=== PATIENT | female | born 1975 | race Caucasian/White ===

== ENCOUNTER → 2017-12-31 10:40 | Outpatient (REF) | payer BC, SELFPAY ==
[2017-12-31 22:33] LABS: FREE T4 1.06 ng/dL (0.76-1.46); TSH 1.08 uIU/mL (0.358-3.74)
[2018-01-01 17:28] LABS: T3, Total 104 ng/dl (97-169)
== END ==
LOC: NCHCN 10:40
PROVIDERS: PCP Family Medicine; Visit Provider Physician Assistant Medical
DX: E03.9 Hypothyroidism, unspecified (principal)
CPT/HCPCS: 84439; 84443; 84480

== ENCOUNTER 2018-11-19 13:05 | Outpatient (CLI) | payer BC, SELFPAY ==
--- NOTE | 2018-11-19 11:44 | DI.RAD_ITS ---
SYMPTOM/DIAGNOSIS: LT SHOULDER PAIN M25.512 LEFT SHOULDER: 11/19/18 Five views were obtained. No bony or soft tissue abnormality seen.
== END 2018-11-19 13:25 ==
PROVIDERS: PCP Family Medicine; Visit Provider Physician Assistant Medical
DX: M25.512 Pain in left shoulder (principal)
CPT/HCPCS: 73030

== ENCOUNTER 2020-03-19 10:56 | Outpatient (REF) | payer BC, SELFPAY ==
[2020-03-19 19:29] LABS: TSH 1.13 uIU/mL (0.36-3.74)
== END 2020-03-19 11:16 ==
LOC: NCHCN 10:56
PROVIDERS: PCP Family Medicine; Visit Provider Physician Assistant Medical
DX: E03.9 Hypothyroidism, unspecified (principal)
CPT/HCPCS: 84443

== ENCOUNTER 2020-07-07 12:42 | Outpatient (RCR) | payer BC, SELFPAY ==
--- NOTE | 2020-07-07 15:30 | HOLTER_ITS ---
APPROVED REPORT Exam Type: HOLTER MONITOR APPLICATION Patient Location: O Conclusion This is a 24-hour Holter monitor ordered for indication of palpitations. The patient was in normal sinus rhythm for the majority of the recording with an average heart rate o f 72 bpm. There were no episodes of SVT or any episodes of VT. There were 2 single PACs. There were no episodes of atrial fibrillation, no pauses greater than 3 seconds and no evidence of hi gh degree heart block. There were 3 patient triggered events associated with 20 minutes of shortness of breath or nausea al . These episodes were correlated with sinus rhythm or sinus tachycardia.
== END 2020-07-11 23:59 | disposition home or self-care (01) ==
LOC: RT 12:42
PROVIDERS: PCP Family Medicine; Visit Provider Physician Assistant Medical
DX: R00.2 Palpitations (principal)
CPT/HCPCS: 93225; 93226

== ENCOUNTER 2020-07-07 21:43 | Outpatient (REF) | payer BC, SELFPAY ==
[2020-07-07 15:46] LABS: Abs Immature Grans 0.01 10^3/uL (0.0-0.06); Absolute Basophil Count 0.04 10^3/uL (0.0-0.2); Absolute Eosinophil Count 0.21 10^3/uL (0.0-0.7); Absolute Lymphocyte Count 1.08 10^3/uL (1.2-3.4); Absolute Monocyte Count 0.35 10^3/uL (0.1-0.8); Absolute Neutrophil Count 3.13 10^3/uL (1.2-6.7); Basophils % 0.8; Eosinophils % 4.4; HCT 39.5 % (36.0-46.0); HGB 12.9 g/dL (11.2-15.7); Immature Grans % 0.2; Lymphocytes % 22.4; MCH 29.4 pg (27.0-33.0); MCHC 32.7 % (32.0-36.0); MPV 10.9 fL (8.0-11.0); Monocytes % 7.3; Neutrophils % 64.9; Nucleated RBC 0 %; Platelet Count 258 10^3/uL (130-400); RBC 4.39 10^6/uL (3.93-5.22); RDW 12.7 % (11.7-14.6); RDW-SD 41.9 fL; WBC 4.82 10^3/uL (4.4-10.8)
[2020-07-07 15:59] LABS: Anion Gap 6.5 mmol/L (3-11); BUN 12 mg/dL (7-18); CO2 27.5 mmol/L (21.0-32.0); CREATININE 0.8 mg/dL (0.55-1.02); Calcium 9.1 mg/dL (8.5-10.1); Chloride 105 mmol/L (98-107); Glucose 78 mg/dL (74-106); Magnesium 2.1 mg/dL (1.8-2.4); Potassium 3.7 mmol/L (3.5-5.1); Sodium 139 mmol/L (136-145); TSH 1.83 uIU/mL (0.36-3.74)
== END 2020-07-07 21:44 | disposition home or self-care (01) ==
LOC: NCHCN 21:43
PROVIDERS: PCP Family Medicine; Visit Provider Physician Assistant Medical
DX: R00.2 Palpitations (principal)
CPT/HCPCS: 80048; 83735; 84443; 85025

== ENCOUNTER 2021-04-14 01:21 | Outpatient (CLI) | payer BC, SELFPAY ==
--- OUTSIDE RECORDS SUMMARY | 2021-04-14 01:23 | XMS_ITS ---
:1975 Author Care Team Providers Name Role Phone TuanRebeca daniel Primary Care Provider Unavailable Allergies Code Code System Name Reaction Severity Status Onset Cat Dander ? ? Active ? [id number] RxNorm Dog Dander ? ? Active ? Grass Pollen ? ? Active ? House Dust ? ? Active ? Mite [id number] RxNorm Mold ? ? Active ? Tree and ? ? Active ? Shrub Pollen Aurora Pollen ? ? Active ? Medications Name Status Start Date Stop Date ? ? Digestzymes by [employer] Active ? Not available capsule 2 capsules, three times / day, 10 minutes before meals Digestzymes by [employer] ? Not available capsule 1-2 capsule, three times / day for 1 m onth before every meal. If it is a higher fat meal, take 2 capsules GI MicrobX by [employer] Active ? Not available capsules 2 capsules twice daily, by mouth. Take away from food by at least 30 minutes, if tolerated. GI MicrobX by [employer] Active ? Not available capsules 2 capsules twice daily, by mouth. Take away from food by at least 30 minutes, if tolerated. GI Revive by [employer] Active ? Not available powder 1 scoop per day Please take away from other medications (at least 1 hour) GI Revive by [employer] Active ? Not available powder 1 scoop per day Please take away from other medications (at least 1 hour) levothyroxine 50 mcg capsule Active ? Not available Take 1 capsule every day by oral route. magnesium 400 mg (as magnesium oxide) capsule Active ? Not available can increase magnesium you are already taking to bowel tolerance for acute constipation at least an hour away from levothyroxine Vitamin C 500 mg tablet Active ? Not avai lable start at 500mg, increase to bowel tolerance for acute constipat ion at least an hour away from levothyroxine Notes: D-Mulsion 1000 D-Glucarate Buffered Chelate Tristian IgG 2000 [place] Oil Capsules Motility Activator Histamine Block Potassium 99mg Tristian Sporebiotic/Therbiotic Problems Name Status Onset Date Source ? Small Bowel Bacterial Overgrowth Syndrome Active 2020 ? Hypothyroidism Active 07/04/2020 ? Migraine Active 07/05/2020 ? 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 Infertility Care Unknown 07/05/2020 ? Trigeminal Neuralgia Active 10/19/2020 ? Constipation Active 10/19/2020 ? Procedures Date Name Performed by ? 05/14/2019 Shoulder Manipulation Information not av ailable 11/11/2017 Endoscopy Information not avai lable Notes: Schatski's Ring 08/12/2016 Colonoscopy Information not avai lable Notes: normal Results Lab Results None recorded. Past Encounters 11/22/2020 Constipation; Small Bowel Bacterial Over growth Syndrome; Burping Rebeca Mcclellan, [place]: [address], [address] [facility], [place] [address], Ph. 10/18/2020 Small Bowel Bacterial Overgrowth Syndrom e; Trigeminal Neuralgia; Migraine; Hypothyroidism; Constipation; Irritable Bowel Syndrome Rebeca Mcclellan, [place]: [address], [place] [address], [place] [address], Ph. 09/08/2020 Small Bowel Bacterial Overgrowth Syndrom e Rebeca Mcclellan, [place]: [address], [address] [facility], [place] [address], Ph. 07/05/2020 Small Bowel Bacterial Overgrowth Syndrom e Rebeca Mcclellan, [place]: [address] [facility] [address], [place] [address], [place] [address], Ph. Social History Tobacco Smoking Status Never Smoker Vaccine List None recorded. Plan of Care Patient Goals improve overall wellness Dear Samira, it was wonderful to spe ak with you yesterday. As discussed, continue with the current plan while also increas ing magnesium and vit c to help with temporary constipation. Re-start SCD for the next 4 weeks to see if some symptom improvement can be achieved. For acupunc ture for trigeminal neuralgia, Milton Lora . Please keep track of t and both digestive symptoms and facial symptoms. We will follow up in one month . Warmly, Rebeca Improve digestive health To be able to eat without re-emerge nce of symptoms Patient Instructions 1. increase digestive enzymes to 2 capsules 10 minutes before meals, 3x/day 2. Continue with previous recommendation s 3. try encapsulated peppermint oil Sami Hogan, I have decided to only include the psyllium and encapsualted peppermint oil in my recommendations for today. The GI revive already has DGL in it and if that is not helping the burping at this point, adding in more will most likely n ot be helpful. I do recommend trying the encapsulated peppermint oil. Start with 1 capsule per day with food and see how you feel. Do not lay down immediately aft er taking this. Please reach out with an y questions. WarmRebeca ivy Dear Samira, It was wonderful to speak with you last week. I am still doing some research into trigeminal neuralgia. I will be in touch with you this week with any thoughts on additional support for you. Please let me know if any questions or concerns com e up before our next visit. Rebeca Nguyễn, It was wonderful to meet you today. I siegel ve attached the information for the Low FODMAP diet. The [facility] Maximino is about $10 to download, but is well worth the investment. It is a great resource for both guiding you through the 3 phase s of the diet as well as a comprehensive data base to search for foods that are not listed on the handout and recipes. Depending on your preference, you can tr ack your symptoms on the maximino or the worksheet I have provided through your portal. Once you have had a chance to review the low FODMAP handouts and decide when it makes sense for you to start the diet, we will schedule to meet in 2 weeks and check in. You can either schedule online th rough the portal (when you are selecting your time, it is booked in 15 minute increments, so make sure to select 3 consecutive time slots) or you can call us and we can get you on the schedule. The stoo l test may or may not be back by then. I f it is, thats great and if not, we can at least check in on how the first phase is going and adjust our plan as needed based on how you are responding. Feel free to explore the [facility] [employer] website, this page in particular is very informative: [email or web address]-bbm-[email or web address]/ The website mostly talks about IBS sympt oms, but it has also been shown to be very helpful with SIBO and ultimately hopefully allow for more flexibility and empowerment in your diet. As you go through this material and the [facility] [employer] maximino, please reach out with any questions you may have! Rebeca Nguyễn Reminders Provider Appointments None recorded. ? ? Lab None recorded. ? ? Referral None recorded. ? ? Procedures None recorded. ? ? Surgeries None recorded. ? ? Imaging None recorded. ? ? Vitals None recorded.
--- OUTSIDE RECORDS SUMMARY | 2021-04-14 01:23 | XMS_ITS ---
:1975 External Reference #:[id number] Author Care Team Providers Name Role Phone Knights Primary Care Provider Unavailable Allergies None recorded. Medications Name Status Start Date Stop Date ? ? amoxicillin 500 mg tablet Completed ? 2018 azelastine 137 mcg (0.1 %) nasal spray Active ? Not available aerosol azithromycin 250 mg tablet Active ? Not a vailable cetirizine 10 mg tablet Completed ? 01/08/20 19 citalopram 10 mg tablet Completed ? 01/08/20 19 clobetasol 0.05 % topical ointment Active ? Not available codeine 10 mg-guaifenesin 100 mg/5 mL Completed ? 08/15/2018 oral liquid cyclobenzaprine 5 mg tablet Active ? Not available D-Mulsion 1000iu Active ? Not available Take 1, 2, 3, , 4, or 5 drop/day 4 drops/day GI Fortify Powder Completed ? 01/07/2019 slippery elm, marshmallow, flax, glutamine, psyllium, triphala, DGL up to 1 scoop 2xday hydrocortisone acetate 25 mg rectal Completed ? 12/02/2019 suppository letrozole 2.5 mg tablet Completed ? 01/08/20 19 levothyroxine 50 mcg tablet Active ? Not available lorazepam 0.5 mg tablet Completed ? 12/02/19 20 Magnesium Buffered Chelate Active ? Not a vailable magnesium glycinate chelate 1 cap 2xday Tristian Sporebiotics Active ? Not available bacillusindicus, subtilis, coagulans, licheniformis, clausii week 1 : 2capevery other day week 2 every day week three 2 caps /day methylprednisolone 4 mg tablets in a Completed ? 04/04/2019 dose pack montelukast 10 mg tablet Completed ? 020 omeprazole 20 mg capsule,delayed Completed ? 03/25/2018 release oxycodone 5 mg tablet Completed ? 12/02/2019 Vitamins Plus Low Iron 27 mg Active ? Not available iron-1 mg tablet promethazine 25 mg tablet Completed ? 2019 Similase Lipo Completed ? 10/10/2018 Digestive Enzyme 1 cap with meals or large snacks- for f at malabsorption/indigestion or pancreatic cancer Xifaxan 550 mg tablet Completed ? 12/02/2019 Problems Name Status Onset Date Source ? Migraine without Aura Active 01/31/2018 ? Pruritus of Skin Active 03/13/2018 ? Dietary Management Surveillance Active 03/15/2018 ? Flatulence, Eructation and Gas Pain Active 03/16/2018 ? Abdominal Pain Active 03/16/2018 ? Otalgia Active 05/27/2018 ? Chronic Constipation Active 05/27/2018 ? Small Bowel Bacterial Overgrowth Syndrome Active 2018 ? Hemorrhoids Active 06/17/2019 ? Procedures Date Name Performed by ? 11/11/2017 Other Information not avai lable Notes: upper endoscopy-no findings bu t pt find a schatzki ring on report 08/12/2016 Colonoscopy Information not avai lable 09/12/2015 Colposcopy Information not avai lable 06/14/2009 Colposcopy Information not avai lable Notes: high risk hpv Results Lab Results Date Name Specimen Result Interpretation Description Value Range Status Address ? 05/05/2019 ESR (Erythrocyte Normal Sedimentation 4 mm/HR 0 -30 Final Accu Sedimentation Rate mm/HR Ref erence Rate), Blood [facility] Lab: [address] [facility] [address], [place] 05/05/2019 C-reactive Normal CRP 4.4 0.0-10. Final A ccu Protein, Quantitative mg/L 0 mg/L Re ference Quantitative [facility] Lab: [address] [facility] [address], [place] 05/05/2019 TSH, Normal TSH 3Rd 2.374 0.340-4 Final Acc u Ultra-sensitive, Generation uIU/mL .410 Reference Serum uIU/mL Medical Lab: [address] [facility] [address], [place] 05/05/2019 T3, Free, Serum Normal Free T3 2.8 2.3-4.2 F inal Accu or Plasma pg/mL pg/mL Referen ce Medical Lab: [address] [facility] [address], [place] 05/05/2019 T4, Free, Serum Normal Free T4 1.03 0.61-1. F inal Accu NG/dL 12 Reference NG/dL Medical Lab: [address], [place] 05/05/2019 ELI (Antinuclear ABNORMAL ELI screen,EIA positi v negativ Final Accu Antibodies) e e Refer ence Screen, Ifa, [facility] Serum Lab: [address], [place] 05/05/2019 ELI (Antinuclear ABNORMAL ELI,titer 1:80 nega tiv Final Accu Antibodies) titer e titer Refe rence Screen, Ifa, [facility] Serum Lab: [address], [place] ? ? Normal ELI Pattern S ? Final Accu Reference Medical Lab: [address], [place] 05/05/2019 Rf (Rheumatoid Normal Rheumatoid 8.9 <14 Final Accu Factor), Serum Factor IU/mL IU/mL Re [facility] Medical Lab: [address], [place] 01/31/2018 Vitamin B12, ser ? Vitamin B12 728 211-946 Final [facility] Serum um pg/mL pg/mL Diagnostic s: [address] [place] [address], [facility] [place] 01/31/2018 CMP, Serum or ser High Glucose 102 <100 Naz l [facility] Plasma um mg/dL mg/dL Diagnostic s: [address] [place] [address], [facility] [place] ? ? ser ? Bun 13 7-25 Final [facility] um mg/dL mg/dL Diagnostic s: [address] [place], [place] ? ? ser ? Creatinine 0.92 0.70-1. Final Merc y um mg/dL 20 Diagnostic mg/dL s: [address] [place], [place] ? ? ser ? BUN / 14.1 6.0-21. Final [facility] um Creatinine ratio 0 ratio Diagn ostic Ratio s: [address] [place], [facility] [place] ? ? ser ? eGFR 87 >60 Final Christine cy um Scottish mL/min/ mL/min/ Diagno stic 1.73m2 1.73m2 s: [address] [place], [facility] [place] ? ? ser ? eGFR 75 >60 Final [facility] um Non- mL/min/ mL/min/ Awilda gnostic Scottish 1.73m2 1.73m2 s: [address] [place], [place] ? ? ser ? Sodium 142 135-145 Final [facility] um mmol/L mmol/L Diagnostic s: [address] [place] [address], [place] ? ? ser ? Potassium 3.8 3.5-5.1 Final [facility] um mmol/L mmol/L Diagnostic s: [address] [place], [place] ? ? ser ? Chloride 103 98-107 Final [facility] um mmol/L mmol/L Diagnostic s: [address] [place], [place] ? ? ser ? Co2 27 21-31 Final [facility] um mmol/L mmol/L Diagnostic s: [address] [place], [place] ? ? ser ? Anion Gap 12 5-15 Final [facility] um mEq/L mEq/L Diagnostic s: [address] [place], [place] ? ? ser ? Calcium 9.6 8.6-10. Final [facility] um mg/dL 3 mg/dL Diagnosti c s: [address], [place] ? ? ser ? Total Protein 7.3 6.4-8.9 Final M [facility] um g/dL g/dL Diagnostic s: [address] [place], [place] ? ? ser ? Albumin 4.5 3.5-5.7 Final [facility] um g/dL g/dL Diagnostic s: [address] [place], [place] ? ? ser ? Globulin 2.8 1.9-3.5 Final [facility] um g/dL g/dL Diagnostic s: [address] [place], [place] ? ? ser ? Albumin / 1.6 0.8-2.0 Final [facility] um Globulin Ratio ratio ratio Di agnostic s: [address] [place], [place] ? ? ser ? Tbili 0.4 0.1-1.5 Final [facility] um mg/dL mg/dL Diagnostic s: [address], [place] ? ? ser ? Alk. 64 IU/L 37-98 Final [facility] um Phosphatase IU/L Diagn ostic s: [address], [place] ? ? ser ? Ast 24 IU/L 13-39 Final [facility] um IU/L Diagnostic s: [address], [place] ? ? ser ? Alt 19 IU/L 7-52 Final [facility] um IU/L Diagnostic s: [address], [place] 01/31/2018 Ferritin, Serum ser ? Ferritin 44.5 13.0-15 Final [facility] or Plasma um NG/mL 0.0 Diagnos tic NG/mL s: [address], [place] 01/31/2018 Folate, Serum ser ? Folate >20.0 4.6-34. Naz l [facility] um NG/mL 8 NG/mL Diagnosti c s: [address], [place] 01/31/2018 Gamma-glutamyl ser ? Ggt 9 IU/L 9-64 Final [facility] Transferase um IU/L Diagn ostic (Ggt), Serum s: [address], [place] 01/31/2018 Magnesium, Serum ser ? Magnesium 2.2 1.9-2. 7 Final [facility] or Plasma um mg/dL mg/dL Diagnos tic s: [address], [place] 01/31/2018 IgE, ser Low Total IgE 18.3 20.4-87 Final [facility] Quantitative, um IU/mL .0 Awilda gnostic Serum IU/mL s: [address], [place] 01/31/2018 Vitamin D, ser ? Vitamin D 33.7 30.0-10 Naz l [facility] 25-Hydroxy, um 25-Oh NG/mL 0.0 Diagn ostic Total, Serum NG/mL s: [address], [place] 01/31/2018 Iron + Total ser ? Iron 75 50-212 Final [facility] Iron-binding um ug/dL ug/dL Diag nostic Capacity (TIBC), s: [address], [place] ? ? ser ? Transferrin 250.8 203.0-3 Final [facility] cy um mg/dL 62.0 Diagnostic mg/dL s: [address], [place] ? ? ser ? Tibc 358.6 250.0-4 Final [facility] um ug/dL 50.0 Diagnostic ug/dL s: [address], [place] ? ? ser ? Uibc 283.6 155.0-3 Final [facility] um ug/dL 55.0 Diagnostic ug/dL s: [address], [place] ? ? ser ? %Saturation 20.9 % 14.0-50 Final [facility] cy um .0 % Diagnostic s: [address], [facility] [place] 01/31/2018 TSH, Serum or ser ? Tsh 1.51 0.40-4. Final [facility] Plasma um uIU/mL 50 Diagnostic uIU/mL s: [address], [facility] [place] 01/31/2018 Thyroglobulin ser ? Tgab 13 0-115 Final [facility] Ab, Serum um IU/mL IU/mL Diagnos tic s: [address], [facility] [place] 01/31/2018 Thyroid ser ? Tpoab 14 0-34 Final [facility] Peroxidase (Tpo) um IU/mL IU/mL Diagnostic Ab, Serum s: [address], [facility] [place] 01/31/2018 T4, Free, Serum ser ? Free T4 1.35 0.93-1. F inal [facility] um NG/dL 70 Diagnostic NG/dL s: [address], [facility] [place] 01/31/2018 T3, Free, Serum ser ? Free T3 2.70 2.00-4. F inal [facility] or Plasma um pg/mL 90 Diagnos tic pg/mL s: [address], [place] 01/31/2018 Sherice Albicans Ser High Sherice 2.52 ev <=0.88 Final [facility] IgA + IgG + IgM um Antibody IgA ev Diagnostic Ab, Serum s: [address], [facility] [place] ? ? Ser High Sherice 1.64 ev <=0.88 Final [facility] um Antibody IgG ev Diag nostic s: [address], [facility] [place] ? ? Ser High Sherice 1.80 ev <=0.88 Final [facility] um Antibody IgM ev Diag nostic s: [address], [facility] [place] 01/31/2018 Immunoglobulins Ser ? Immunoglobulin 1390 76 8-163 Final [facility] Iga+igg+igm, um g mg/dL 2 mg/dL Awilda gnostic Quantitative, s: [address]39 Serum [address], [facility] [place] ? ? Ser ? Immunoglobulin 272 68-408 Final [facility] um a mg/dL mg/dL Diagnostic s: [address], [place] ? ? Ser ? Immunoglobulin 237 35-263 Final [facility] um M mg/dL mg/dL Diagnostic s: [address], [place] 01/31/2018 Histamine, Serum Sarah ? Histamine, <8 0-8 Final [facility] or Plasma sma Plasma nmol/L nmol/L Diagnos tic s: [address], [place] 01/31/2018 Magnesium, RBC RBC ? Magnesium, 1.6 1.5-3.1 Final [facility] s RBCs mmol/L mmol/L Diagnostic s: [address], [place] 01/31/2018 CBC W/ Auto Diff who ? White Blood 6.0 4.0- 11. Final [facility] leb Cell Count 10^3/uL 0 Diagn ostic loo 10^3/uL s: [address]39 [address], [place] ? ? who ? Red Blood Cell 4.40 4.00-5. [facility] leb Count 10^6/uL 40 Diagnosti c loo 10^6/uL s: 2039 d [address], [place] ? ? who ? Hemoglobin 12.7 12.5-16 Final [facility] leb g/dL .0 g/dL Diagnosti c loo s: 2039 d [address], [place] ? ? who ? Hematocrit 38.6 % 37.0-47 Final [facility] leb .0 % Diagnostic loo s: [address]39 d [address]red[address], [place] ? ? who ? Mean Cell 87.7 fL 78.0-10 Final [facility] leb Volume 0.0 fL Diagnostic loo s: [address]39 [address], [place] ? ? who ? Mean Cell 28.9 pg 25.0-35 Final [facility] leb Hemoglobin .0 pg Diagno stic loo s: [address]39 d [address], [place] ? ? who ? Mean Cell 32.9 30.0-37 Final [facility] leb Hemoglobin g/dL .0 g/dL Diagn ostic loo Concentration s: 2039 d [address], [place] ? ? who ? Red Cell 13.7 % 11.5-14 Final [facility] leb Distribution .5 % Diag nostic loo Width s: [address], [place] ? ? who ? Platelet Count 281 150-450 Final [facility] leb 10^3/uL 10^3/uL Diagnost ic loo s: [address], [place] ? ? who ? Mean Platelet 8.9 fL 6.8-10. Final [facility] leb Volume 4 fL Diagnostic loo s: [address], [place] ? ? who ? Neutrophil 69.2 % 40.0-70 Final [facility] leb Percent .0 % Diagnosti c loo s: [address], [place] ? ? who ? Absolute 4.2 1.5-6.6 Final [facility] leb Neutrophil 10^3/uL 10^3/uL Diag nostic loo s: [address]39 [address], [place] ? ? who ? Lymphocyte 19.1 % 18.0-48 Final [facility] leb Percent .0 % Diagnosti c loo s: [address], [place] ? ? who ? Absolute 1.2 0.8-4.8 Final [facility] leb Lymphocyte 10^3/uL 10^3/uL Diag nostic loo s: [address]39 [address], [place] ? ? who ? Monocyte 6.4 % 2.0-11. Final [facility] leb Percent 0 % Diagnosti c loo s: [address]39 [address], [place] ? ? who ? Absolute 0.40 0.00-0. Final [facility] leb Monocyte 10^3/uL 90 Diagnos tic loo 10^3/uL s: 2039 [address], [place] ? ? who ? Eosinophil 4.5 % 0.0-5.0 Final [facility] leb Percent % Diagnosti c loo s: [address]39 [address], [place] ? ? who ? Absolute 0.3 0.0-0.5 Final [facility] leb Eosinophil 10^3/uL 10^3/uL Diag nostic loo s: 2039 d [address], [place] ? ? who ? Basophil 0.8 % 0.0-2.0 Final [facility] leb Percent % Diagnosti c loo s: 2039 d Lal[address]redia, [place] ? ? who ? Basophil 0.00 0.00-0. Final [facility] leb Absolute 10^3/uL 30 Diagnos tic loo 10^3/uL s: 2039 d Lal[address] Heredia, [place] Past Encounters 12/18/2019 Flatulence, Eructation and Gas Pain; tary Management Surveillance; Small Bowel Bacterial Overgrowth Syndrome Winifred Coulter, ND: [address] [place] [address], Ph. [phone] 12/02/2019 Cramp in Foot; Small Bowel Bacterial Ove rgrowth Syndrome; Otalgia; Flatulence, Eructation and Gas Pain; Dietary Management Surveillance Winifred Coulter, ND: [address] [place] [address], Ph. [phone] Social History Tobacco Smoking Status Never Smoker Vaccine List None recorded. Plan of Care Patient Instructions 1. try taking CAndidbactin 1 hour b efore meals with a small amount of food, pear sauce, apple sace cooked carrots etc- 2. Rehydration Formula 8oz water 8oz juice 1/2 tsp baking soda pinch of table salt 1/2 tsp honey or maple syrup squeeze lemon juice if desired can use grape juice as well for sugar 1. PT for shoulder and anti-inflamm atories 2. Stop Candibactin AR for 3/4 days if g as and repeating taste goes away try adding back only 1 pill a day give it a few days and see if you repeat it on one pill/day only- 3. continue to log diet and sx and BMs c all if you need help before next appt. electrolyte recipe: Rehydration Formula 8oz water 8oz juice 1/2 tsp baking soda pinch of table salt 1/2 tsp honey or maple syrup squeeze lemon juice if desired Reminders Provider Appointments None recorded. ? ? Lab None recorded. ? ? Referral None recorded. ? ? Procedures None recorded. ? ? Surgeries None recorded. ? ? Imaging None recorded. ? ? Vitals 12/18/2019 09:00AM ESTABLISHED PATIENT 43 Height Weight BMI 5 ft 3 in 122 lbs 16 oz 21.8 kg/m2 12/02/2019 10:45AM ESTABLISHED PATIENT 45 Height Weight BMI Blood Pressure 5 ft 3 in 126 lbs 22.3 kg/m2 102/62 mm[Hg] 06/02/2019 03:00PM ESTABLISHED PATIENT 45 Height Weight BMI Blood Pressure 5 ft 3 in 121 lbs 21.4 kg/m2 110/60 mm[Hg] 01/07/2019 01:45PM ESTABLISHED PATIENT 45 Height Weight BMI 5 ft 3 in 119 lbs 16 oz 21.3 kg/m2 10/31/2018 01:00PM ESTABLISHED PATIENT 45 Height Weight BMI 5 ft 3 in 119 lbs 16 oz 21.3 kg/m2 10/10/2018 03:30PM ESTABLISHED PATIENT 45 Height Weight BMI 5 ft 3 in 121 lbs 21.4 kg/m2 06/27/2018 03:00PM ESTABLISHED PATIENT 30 Height Weight BMI 5 ft 3 in 130 lbs 23 kg/m2 05/23/2018 03:00PM ESTABLISHED PATIENT 30 Height Weight BMI 5 ft 3 in 133 lbs 12.8 oz 23.7 kg/m2 03/29/2018 09:30AM ESTABLISHED PATIENT 58 Height Weight BMI 5 ft 3 in 139 lbs 24.6 kg/m2 03/25/2018 03:30PM ESTABLISHED PATIENT 58 Height Weight BMI Blood Pressure 5 ft 3 in 142 lbs 3.2 oz 25.2 kg/m2 100/68 mm[Hg] 03/13/2018 04:15PM ESTABLISHED PATIENT 45 Height Weight BMI 5 ft 3 in 143 lbs 25.3 kg/m2 01/31/2018 01:30PM NEW PATIENT 90 Height Weight BMI Blood Pressure 5 ft 3 in 148 lbs 3.2 oz 26.3 kg/m2 110/70 mm[Hg]
--- NOTE | 2021-04-14 16:20 | DI.MAMMO_ITS ---
Exam(s) MAMMO SCREENING EXAM: MAMMO SCREENING CLINICAL HISTORY: BREAST CANCER SCREENING MAMMO Z12.31. TECHNIQUE: Bilateral full field digital CC and MLO mammographic images were obtained with 3D tomosyn thesis and utilizing computer aided detection (CAD). COMPARISON: Prior mammograms dating back to 2013, the most recent being July 2017. FINDINGS: Fibroglandular tissue pattern is again noted be moderately dense, this somewhat decreasing the sensit ivity mammogram for finding hidden underlying lesions. There has been no significant change in appearance and distribution of fibroglandular tissue. There are no new spiculated masses nor malignant-appearing microcalcification groups. Small benign-a ppearing microcalcification group in the left breast noted approximately 4 cm in from the nipple. Be nign macrocalcification medial of center in the right breast consistent with benign peripherally calc ified oil cyst is now evident. There is no significant architectural distortion nor skin thickening-retraction. IMPRESSION: Dense bilateral fibroglandular tissue. Benign findings. No obvious radiographic evidence of maligna ncy. BI-RADS Category 2 - Benign Findings Breast Density - Category C - Heterogeneously dense Breast density Category C or D implies that the patient has dense breast tissue. Dense breast tissue can make it harder to find cancer on a mammogram. Dense breast tissue is also associated with an incr eased risk of breast cancer. This information about the result of the mammogram report was provided to the patient to raise their awareness. Use this report when you speak with the patient about their risks for breast cancer, which includes their family history. At that time, you may recommend additional screening tests (Ultrasoun d or MRI) as these tests may add significant information. A negative radiographic report should not delay biopsy if a dominant or clinically suspicious mass is present. Up to ten percent of cancers are not identified on mammography. A negative report may reinforce clinical impression. Adenosis and dense breasts may obscure an underlying neoplasm. False positive reports average 6 to 10%. Patient will receive a letter notifying them of these results.
== END 2021-04-14 01:41 ==
PROVIDERS: PCP Family Medicine; Visit Provider Nurse Practitioner Women's Health
DX: Z12.31 Encounter for screening mammogram for malignant neoplasm of breast (principal); R92.8 Other abnormal and inconclusive findings on diagnostic imaging of breast; R92.0 Mammographic microcalcification found on diagnostic imaging of breast
CPT/HCPCS: 77063; 77067

== ENCOUNTER 2021-04-20 18:51 | Outpatient (REF) | payer BC, SELFPAY ==
[2021-04-20 20:30] LABS: Abs Immature Grans 0.01 10^3/uL (0.0-0.06); Absolute Basophil Count 0.05 10^3/uL (0.0-0.2); Absolute Eosinophil Count 0.27 10^3/uL (0.0-0.7); Absolute Lymphocyte Count 1.33 10^3/uL (1.2-3.4); Absolute Monocyte Count 0.55 10^3/uL (0.1-0.8); Absolute Neutrophil Count 3.64 10^3/uL (1.2-6.7); Basophils % 0.9; Eosinophils % 4.6; HCT 36.3 % (36.0-46.0); HGB 11.8 g/dL (11.2-15.7); Immature Grans % 0.2; Lymphocytes % 22.7; MCH 28.9 pg (27.0-33.0); MCHC 32.5 % (32.0-36.0); MPV 10.6 fL (8.0-11.0); Monocytes % 9.4; Neutrophils % 62.2; Nucleated RBC 0 %; Platelet Count 244 10^3/uL (130-400); RBC 4.08 10^6/uL (3.93-5.22); RDW 13.2 % (11.7-14.6); WBC 5.85 10^3/uL (4.4-10.8)
[2021-04-20 20:43] LABS: ALT 31 U/L (14-59); AST 38 U/L (15-37); Albumin 3.9 g/dL (3.4-5.0); Alkaline Phosphatase 69 U/L (46-116); BUN 17 mg/dL (7-18); Bilirubin, Total 0.3 mg/dL (0.2-1.0); CO2 23.8 mmol/L (21.0-32.0); CREATININE 0.6 mg/dL (0.55-1.02); Calculated LDL 119 mg/dL (<100); Chloride 95 mmol/L (98-107); Cholesterol 191 mg/dL (<200); Glucose 94 mg/dL (74-106); HDL Cholesterol 62 mg/dL (40-60); TSH 1.85 uIU/mL (0.36-3.74); Total Protein 7.4 g/dL (6.4-8.2); Triglyceride 52 mg/dL (<150)
[2021-04-20 20:48] LABS: Anion Gap 17.2 mmol/L (3-11); Potassium 4.6 mmol/L (3.5-5.1); Sodium 136 mmol/L (136-145)
== END 2021-04-20 18:52 | disposition home or self-care (01) ==
LOC: NCHCN 18:51
PROVIDERS: PCP Family Medicine; Visit Provider Physician Assistant Medical
DX: Z00.8 Encounter for other general examination (principal)
CPT/HCPCS: 80053; 80061; 84443; 85025

== ENCOUNTER 2022-07-17 02:14 | Outpatient (CLI) | payer BC, SELFPAY ==
--- NOTE | 2022-07-17 14:00 | DI.MAMMO_ITS ---
Exam(s) MAMMO SCREENING EXAM: MAMMO SCREENING CLINICAL HISTORY: SCREENING, Z12.31 TECHNIQUE: Mammograms were interpreted according to the usual protocol including computer analysis w [employer] CAD system, tomosynthesis and C-view imaging. COMPARISON: 2013 through 2020 FINDINGS: The breasts are composed of heterogeneously dense fibroglandular densities, Breast Density category C . There is a question of a roughly 15 millimeter area of nodularity versus overlying fibroglandular tis yon seen on the CC view in the posterior tissue in the midline. Spot compression views and ultrasoun d are requested for further evaluation. No suspicious masses or suspicious microcalcifications are s een in the left breast. No skin thickening or abnormal axillary lymph nodes are seen. There has been no significant change in the appearance of the left breast from prior exams. IMPRESSION: BI-RADS Category 0 - Assessment Incomplete: Need additional imaging evaluation of the right breast. . Breast Density Category C, heterogeneously Dense. The mammogram demonstrates the patient's breast tissue is dense. Dense breast tissue is very common a nd is not abnormal but dense breast tissue can make it harder to find cancer on a mammogram. Also, de nse breast tissue may increase breast cancer risk. This information about the result of the mammogram report was provided to the patient to raise their awareness. Use this report when you speak with the patient about their risks for breast cancer, which includes their family history. At that time, you may recommend additional screening tests (Ultrasound or MRI) as they might be useful based on their r isk. A negative radiographic report should not delay biopsy if a dominant or clinically suspicious mass is present. Up to ten percent of cancers are not identified on mammography. A negative report may reinforce clinical impression. Adenosis and dense breasts may obscure an underlying neoplasm. False positive reports average 6 to 10%.
== END 2022-07-17 02:34 ==
LOC: DI 02:14
PROVIDERS: PCP Family Medicine; Visit Provider Nurse Practitioner Women's Health
DX: Z12.31 Encounter for screening mammogram for malignant neoplasm of breast (principal); R92.8 Other abnormal and inconclusive findings on diagnostic imaging of breast
CPT/HCPCS: 77063; 77067

== ENCOUNTER 2022-07-21 00:26 | Outpatient (CLI) | payer BC, SELFPAY ==
--- NOTE | 2022-07-21 10:15 | DI.MAMMO_ITS ---
Exam(s) MG MAMMO SCREEN CALL BACK UNI US BREAST RT COMPLETE EXAM: MG MAMMO SCREEN CALL BACK UNI and U/S breast RT complete CLINICAL HISTORY: 15 MM AREA OF NODULARITY/FIBROGLANDULAR TISSUE, POSTERIOR RT BREAST MIDLINE. TECHNIQUE: Craniocaudal and mediolateral oblique Full Field Digital Mammography views of the right b reast with Computer Aided Diagnosis followed by Tomosynthesis and right breast ultrasound. COMPARISON: Comparison is made with prior examinations. FINDINGS: Mammography/Tomosynthesis: Masses/Architectural Distortion: None seen. Microcalcifictions: No suspicious pleomorphic-type are seen. Skin Thickening/Nipple Retraction: None. Complete right breast US: Echotexture: Normal appearance of the glandular tissue. Shadowing: No suspicious foci. Cyst: None. Solid lesions: None seen. Ductal dilation: None. IMPRESSION: 1. No evidence of malignancy is noted. 2. A six-month follow-up right mammogram is recommended for re-evaluation. 3. The findings were discussed with the patient on the date of the examination. BI-RADS Category 3 - 6 month - Probably Benign Finding: Recommend follow-up imaging in 6 months Breast Density - Category C - Heterogeneously dense Breast density Category C or D implies that the patient has dense breast tissue. Dense breast tissue can make it harder to find cancer on a mammogram. Dense breast tissue is also associated with an incr eased risk of breast cancer. This information about the result of the mammogram report was provided to the patient to raise their awareness. Use this report when you speak with the patient about their risks for breast cancer, which includes their family history. At that time, you may recommend additional screening tests (Ultrasoun d or MRI) as these tests may add significant information. A negative radiographic report should not delay biopsy if a dominant or clinically suspicious mass is present. Up to ten percent of cancers are not identified on mammography. A negative report may reinforce clinical impression. Adenosis and dense breasts may obscure an underlying neoplasm. False positive reports average 6 to 10%. Patient will receive a letter notifying them of these results.
== END 2022-07-21 00:46 ==
LOC: DI 00:28
PROVIDERS: PCP Family Medicine; Visit Provider Nurse Practitioner Women's Health
DX: Z12.31 Encounter for screening mammogram for malignant neoplasm of breast (principal); R92.8 Other abnormal and inconclusive findings on diagnostic imaging of breast
CPT/HCPCS: 76642; 77063; 77067

== ENCOUNTER 2022-07-31 03:52 | Outpatient (CLI) | payer BC, SELFPAY ==
[2022-07-31 16:43] LABS: Abs Immature Grans 0.01 10^3/uL (0.0-0.06); Absolute Basophil Count 0.05 10^3/uL (0.0-0.2); Absolute Eosinophil Count 0.33 10^3/uL (0.0-0.7); Absolute Lymphocyte Count 1.52 10^3/uL (1.2-3.4); Absolute Monocyte Count 0.42 10^3/uL (0.1-0.8); Absolute Neutrophil Count 2.51 10^3/uL (1.2-6.7); Eosinophils % 6.8; HCT 36.4 % (36.0-46.0); Immature Grans % 0.2; Lymphocytes % 31.4; MCH 29.3 pg (27.0-33.0); MCV 89 fL (80-95); MPV 9.8 fL (8.0-11.0); Monocytes % 8.7; Neutrophils % 51.9; Platelet Count 242 10^3/uL (130-400); RDW 13.1 % (11.7-14.6); RDW-SD 42.5 fL; WBC 4.84 10^3/uL (4.4-10.8)
[2022-07-31 17:32] LABS: Iron 45 ug/dL (50-170); Total Iron Binding Capacity 280 ug/dL (250-450); Transferrin Sat 16 % (15-50)
[2022-07-31 17:46] LABS: Calculated LDL 109 mg/dL (<100); Cholesterol 170 mg/dL (<200); Ferritin 52 ng/mL (8-252); HDL Cholesterol 53 mg/dL (40-60); Magnesium 2.1 mg/dL (1.8-2.4); Triglyceride 41 mg/dL (<150)
[2022-07-31 18:04] LABS: PHOSPHORUS 3.9 mg/dL (2.6-4.7)
[2022-08-04 09:08] LABS: Apolipoprotein A1, S 124 mg/dL (>=140); Apolipoprotein B, S 89 mg/dL (See Comment); Apolipoprotein B/A 1 ratio 0.7 (See Comment)
== END 2022-07-31 03:53 | disposition home or self-care (01) ==
PROVIDERS: PCP Family Medicine; Visit Provider Naturopath
DX: D50.9 Iron deficiency anemia, unspecified (principal); E78.5 Hyperlipidemia, unspecified; E83.42 Hypomagnesemia
CPT/HCPCS: 36415; 80061; 82172; 82728; 83540; 83550; 83735; 84100; 85025

== ENCOUNTER 2022-08-02 02:01 | Outpatient (CLI) | payer BC, SELFPAY ==
--- NOTE | 2022-08-02 07:30 | DI.MRI_ITS ---
Exam(s) MR ANGIO BRAIN WO CLINICAL HISTORY: bilat pulsatile tinnitus,H93.A3. TECHNIQUE: Multiplanar multisequence MRA of the brain was performed. COMPARISON: Comparison MRI brain is 03/30/2010. FINDINGS: Carotid Arteries: No aneurysm, occlusion or significant stenosis. Anterior Cerebral Arteries: Right: No aneurysm, occlusion or significant stenosis. Left: No aneurysm, occlusion or significant stenosis. Middle Cerebral Arteries: Right: No aneurysm, occlusion or significant stenosis. Left: No aneurysm, occlusion or significant stenosis. Posterior Cerebral Arteries: Right: No aneurysm, occlusion or significant stenosis. There is a persistent right PCOM which is a n ormal variant. Left: No aneurysm, occlusion or significant stenosis. Vertebral Arteries: Right: No aneurysm, occlusion or significant stenosis. Left: No aneurysm, occlusion or significant stenosis. Basilar Artery: No aneurysm, occlusion or significant stenosis. IMPRESSION: Normal MRA examination of the [place]. DATA REPOSITORY:
--- NOTE | 2022-08-02 07:30 | DI.MRI_ITS ---
Exam(s) MR VENOUS BRAIN WO/W EXAM: MR VENOUS BRAIN WO/W CLINICAL HISTORY: pulsitile tinnitus,bilat,H93.A3. TECHNIQUE: Multiplanar multisequence MRV of the brain was performed. IV Contrast: 12 mL of Dotarem contrast administered. COMPARISON: MR MRI - BRAIN WO CONTRAST from 03/30/2010 FINDINGS: Superior sagittal sinus: Patent.Straight sinus: Patent.Sigmoid sinus: Patent.Jugular veins: Patent. IMPRESSION: Normal MR Venogram. DATA REPOSITORY:
--- NOTE | 2022-08-02 07:30 | DI.MRI_ITS ---
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 TECHNIQUE: Multiplanar multisequence MRA of the Neck was performed. COMPARISON: MR MRI - BRAIN WO CONTRAST from 03/30/2010 FINDINGS: Common Carotid: Right: No dissection, occlusion or significant stenosis. Left: No dissection, occlusion or significant stenosis. External Carotid: Right: No evidence of occlusion or significant stenosis. Left: No evidence of occlusion or significant stenosis. Internal Carotid: Right: No dissection, occlusion or significant stenosis. Left: No dissection, occlusion or significant stenosis. Vertebral Artery: Right: No dissection, occlusion or significant stenosis. Left: No dissection, occlusion or significant stenosis. The visualized paraspinal soft tissues are unremarkable. IMPRESSION: No evidence of dissection, occlusion or significant stenosis. DATA REPOSITORY:
[2022-08-02] MEDS: Normal Saline - Diluent 50 ML VIAL 30 ML IJ (15:10)
== END 2022-08-02 02:21 ==
LOC: DI 02:01
PROVIDERS: PCP Family Medicine; Visit Provider Psychiatry & Neurology Neurology
DX: H93.A3 Pulsatile tinnitus, bilateral (principal)
CPT/HCPCS: 70544; 70546; 70547

== ENCOUNTER 2022-12-12 13:21 | Outpatient (REF) | payer BC, SELFPAY ==
[2022-12-12 16:31] LABS: TSH (W/Ref FT4) 1.42 uIU/mL (0.36-3.74)
== END 2022-12-12 13:22 | disposition home or self-care (01) ==
LOC: NCHCN 13:21
PROVIDERS: PCP Family Medicine; Visit Provider Physician Assistant Medical
DX: E03.9 Hypothyroidism, unspecified (principal)
CPT/HCPCS: 84443

== ENCOUNTER → 2023-02-01 03:10 | Outpatient (CLI) | payer BC, SELFPAY ==
--- NOTE | 2023-02-01 15:03 | DI.MAMMO_ITS ---
Exam(s) MAMMO DIAGNOSTIC UNI EXAM: MAMMO DIAGNOSTIC UNI CLINICAL HISTORY: R92.8 ABNL MAMMO 6 MO FU. TECHNIQUE: Craniocaudal and mediolateral oblique Full Field Digital Mammography views of the right b reast with Computer Aided Diagnosis followed by Tomosynthesis. COMPARISON: Comparison is made with prior examinations. FINDINGS: Mammography/Tomosynthesis: Masses/Architectural Distortion: None seen. Microcalcifictions: No suspicious pleomorphic-type are seen. Skin Thickening/Nipple Retraction: None. IMPRESSION: 1. No evidence of malignancy is noted. 2. Unless there is more urgent need, follow-up screening mammography is recommended, as per [place] [employer] guidelines. 3. The findings were discussed with the patient on the date of the examination. BI-RADS Category 1 - Negative Breast Density - Category C - Heterogeneously dense Breast density Category C or D implies that the patient has dense breast tissue. Dense breast tissue can make it harder to find cancer on a mammogram. Dense breast tissue is also associated with an incr eased risk of breast cancer. This information about the result of the mammogram report was provided to the patient to raise their awareness. Use this report when you speak with the patient about their risks for breast cancer, which includes their family history. At that time, you may recommend additional screening tests (Ultrasoun d or MRI) as these tests may add significant information. A negative radiographic report should not delay biopsy if a dominant or clinically suspicious mass is present. Up to ten percent of cancers are not identified on mammography. A negative report may reinforce clinical impression. Adenosis and dense breasts may obscure an underlying neoplasm. False positive reports average 6 to 10%. Patient will receive a letter notifying them of these results.
== END ==
PROVIDERS: PCP Family Medicine; Visit Provider Nurse Practitioner Women's Health
DX: Z12.31 Encounter for screening mammogram for malignant neoplasm of breast (principal); R92.8 Other abnormal and inconclusive findings on diagnostic imaging of breast
CPT/HCPCS: 77061; 77065; G0279

== ENCOUNTER → 2023-09-07 00:21 | Outpatient (CLI) | payer BC, SELFPAY ==
--- NOTE | 2023-09-07 | DI.MAMMO_ITS ---
Exam(s) MAMMO SCREENING EXAM: MAMMO SCREENING CLINICAL HISTORY: SCREENING MAMMO FOR BTREAST CANCER Z12.31 TECHNIQUE: Bilateral full field digital CC and MLO mammographic images were obtained with 3D tomosyn thesis and utilizing computer aided detection (CAD). COMPARISON: Available for comparison. FINDINGS: Masses/Architectural Distortion: None seen. Microcalcifications: No suspicious pleomorphic-type are seen. Skin Thickening/Nipple Retraction: None. IMPRESSION: 1. No significant interval change with no specific features of malignancy noted. 2. Unless there is more urgent need, screening mammography is recommended, as per [place] [employer] guidelines. BI-RADS Category 1 - Negative Breast Density - Category C - Heterogeneously dense Breast density category C or D implies that the patient has dense breast tissue. Dense breast tissue is very common and is not abnormal but dense breast tissue can make it harder to find cancer on a ma mmogram. Also, dense breast tissue may increase their breast cancer risk. This information about the result of the mammogram report was provided to the patient to raise their awareness. Use this report when you speak with the patient about their risks for breast cancer, which includes their family hist ory. At that time, you may recommend for more screening tests (Ultrasound or MRI) as they might be us eful based on their risk. A negative radiographic report should not delay biopsy if a dominant or clinically suspicious mass is present. Up to ten percent of cancers are not identified on mammography. A negative report may reinforce clinical impression. Adenosis and dense breasts may obscure an underlying neoplasm. False positive reports average 6 to 10%. Patient will receive a letter notifying them of these results.
== END ==
PROVIDERS: PCP Family Medicine; Visit Provider Nurse Practitioner Women's Health
DX: Z12.31 Encounter for screening mammogram for malignant neoplasm of breast (principal); R92.8 Other abnormal and inconclusive findings on diagnostic imaging of breast
CPT/HCPCS: 77063; 77067

== ENCOUNTER 2023-12-21 00:15 | Outpatient (CLI) | payer BC, SELFPAY ==
--- OUTSIDE RECORDS SUMMARY | 2023-12-19 02:03 | XMS_ITS | Encounter Summary ---
Author Organization [facility] [place] [address] Care Team Providers Care Electro Plater Name Role Phone José Luis Cornejo Primary Care Provider [phone]- [phone] Encounter Details Date Type Department Care Team (Latest Contact Info) Description 09/05/2023 Travel Social History Tobacco Use Types Packs/Day Years Used Date Smoking Tobacco: Never Smokeless Tobacco: Never Alcohol Use Standard Drinks/Week Comments Yes 0 (1 standard drink = 0.6 oz pur e alcohol) occasional Sex and Gender Information Value Date Recorded Sex Assigned at Not on file Gender Identity Not on file Sexual Orientation Not on file documented as of this encounter Plan of Treatment Not on file documented as of this encounter Visit Diagnoses Not on filedocumented in this encounter Care Teams Electro Plater Relationship Specialty Start Date End Date José Luis Cornejo PA [address] [place] [address] PCP - General Family Medicine 09/05/23 documented as of this encounter
--- OUTSIDE RECORDS SUMMARY | 2023-12-19 02:03 | XMS_ITS | Encounter Summary ---
Author Organization [facility] [place] [address] Care Team Providers Care Store Management Trainee Name Role Phone José Luis Cornejo Primary Care Provider [phone]- [phone] Reason for Visit * Surgical (Routine) - Specialty Diagnoses / Procedures Referred By Contac t Referred To Contact Gastroenterology Diagnoses flatulence Procedures lactulose breath test Winifred Coulter, [place] [address] [place] [address] [facility] [address] [place] [address] Referral ID Status Reason Start Date Expiration Date V isits Requested Visits Authorized [id number] 11/01/2018 11/01/2019 1 1 Encounter Details Date Type Department Care Team (Latest Contact Info) Description 12/11/2018 1:00 PM EDT Procedure [place] [address] Bloating; Small intestinal bacterial overgrowth Social History Tobacco Use Types Packs/Day Years Used Date Smoking Tobacco: Never Smokeless Tobacco: Never Alcohol Use Standard Drinks/Week Comments Yes 0 (1 standard drink = 0.6 oz pur e alcohol) occasional Sex and Gender Information Value Date Recorded Sex Assigned at Not on file Gender Identity Not on file Sexual Orientation Not on file documented as of this encounter Progress Notes * Khloe Norris, CLARISA - 12/11/2018 1:00 PM EDT Gastroenterology Breath Test Report Patient: Samira Ascencio Date Of : 1975 PCP: [facility] [place] Referring: Winifred Coulter STUDY DATE: 12/12/2018 PROVIDER: Khloe Norris APRN INDICATION: bloating ppmH2 ppmCH4 CO2(f) Fasting Baseline 0 41 4.0/1.52 Administer sugar: Lactulose 10g with 90 mL H2O Sample Time ppmH2 ppmCH4 CO2(f) 1. 15 min 0 44 3.9/1.56 2. 30 min 0 53 4.0/1.52 3. 45 min 2 53 4.0/1.52 4. 60 min 4 70 4.1/1.48 5. 75 min 5 64 3.8/1.60 6. 90 min 7 67 4.1/1.48 7. 105 min 7 67 3.7/1.64 8. 120 min 6 58 3.8/1.60 Interpretation: Positive breath test Patient had excess production of methane which can be associated with constipation. Patient reported nausea, eructation, gas, and mucus symptoms during the test. Clinical interpretation is based on the Hydrogen and Methane-Based Breath Testing in Gastrointestinal Disorders: The [place] Consensus (Am J Gastroenterol 2017; 112(5):775-84. Apositive breath test is defined as a rise in hydrogen production >20 ppm compared to baseline within 90 minutes. Methane-positive is defined by at least 10 ppm production of methane. Signed, Khloe Norris APRN [place] [address] P: [phone] F: [phone] Copy: [facility] Garcia documented in this encounter Plan of Treatment Not on file documented as of this encounter Visit Diagnoses Diagnosis Bloating Flatulence, eructation, and gas pain Small intestinal bacterial overgrowth documented in this encounter Care Teams Store Management Trainee Relationship Specialty Start Date End Date José Luis Cornejo PA [address] [place] [address] PCP - General Family Medicine 05/29/16 12/30/19 documented as of this encounter
--- OUTSIDE RECORDS SUMMARY | 2023-12-19 02:03 | XMS_ITS | Encounter Summary ---
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; Eustachian tube dysfunction, bilateral; Chronic rhinitis; Recurrent acute serous otitis media of right ear Social History Tobacco Use Types Packs/Day Years Used Date Smoking Tobacco: Never Smokeless Tobacco: Never Alcohol Use Standard Drinks/Week Comments Yes 0 (1 standard drink = 0.6 oz pur e alcohol) occasional Sex and Gender Information Value Date Recorded Sex Assigned at Not on file Gender Identity Not on file Sexual Orientation Not on file documented as of this encounter Last Filed Vital Signs Vital Sign Reading Time Taken Comments Blood Pressure - - Pulse - - Temperature - - Respiratory Rate - - Oxygen Saturation - - Inhaled Oxygen Concentration - - Weight 53.5 kg (118 lb) 02/17/2019 4:50 PM EDT Height 160 cm (5' 3) 02/17/2019 4:50 PM EDT Body Mass Index 20.9 02/17/2019 4:50 PM EDT documented in this encounter Progress Notes * Tila Grande MD - 02/17/2019 4:40 PM EDT [facility] Otolaryngology - Head and Neck Surgery Tila Grande MD 02/17/19 5:06 PM [place] [address] Office Patient Name: Samira Ascencio Date of : 1975 PCP: [facility] [place] Chief Complaint: f/u right serous otitis media, eustachian tube dysfunction History of Present Illness: Samira Ascencio is a 43 y.o. year old female seen in follow up. She was seen about 3 months ago with chronic right eustachian tube dysfunction symptoms. Was noted to have a retracted TM on the right and is here for follow up. In the interim, she had another URI with subsequent blockage sensation of the right ear. Was diagnosed with otitis media by her PCP, she has been prescribed antibiotics but wanted to be seen at our visit here today before starting it. She denies sirena pain or drainage, but does note a full, underwater sensation. Has had intermittent popping and crackling in that ear for years, notes mild right sided nasal obstruction as well. No fevers or chills, no vertigo, otherwise doing ok. 10 point Review of Systems was normal except for pertinent positives and negatives included in the History of Present Illness. Past Medical and Surgical History Patient Active Problem List Diagnosis Code ??? Pain in joint, shoulder region M25.519 ??? Impingement syndrome of shoulder M75.40 ??? Eustachian tube dysfunction, bilateral H69.83 ??? Chronic rhinitis J31.0 ??? 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 azelastine (ASTELIN) 137 mcg (0.1 %) Aerosol, Monarch 1 spray by Nasal route 2 times daily. Use in each nostril as directed ??? letrozole (FEMARA) 2.5 mg Tablet Take 2.5 mg by mouth daily. ??? levothyroxine (SYNTHROID) 50 mcg Tablet Take 50 mcg by mouth daily. ??? ibuprofen (ADVIL;MOTRIN) 200 mg tablet Take 400 mg by mouth daily as needed. ??? CALCIUM CARBONATE/VITAMIN D3 (CALCIUM CHEW ORAL) Take by mouth. ??? sertraline (ZOLOFT) 25 mg Tablet Take 25 mg by mouth daily. ??? citalopram (CELEXA) 20 mg tablet Take 10 mg by mouth daily. ??? multivitamin (THERAGRAN) tablet Take 1 tablet by mouth daily. No current facility-administered medications on file prior to visit. Allergies: Patient has no known allergies. Surgical History: Past Surgical History: Procedure Laterality Date ??? PRO COLONOSCOPY, DIAGNOSTIC N/A 08/15/2016 COLONOSCOPY, DIAGNOSTIC performed by Elizabeth Barkley MD at [facility] ENDOSCOPY ??? PRO UPPER GI ENDOSCOPY, DIAGNOSTIC N/A 08/15/2016 EGD, UPPER GI ENDOSCOPY performed by Elizabeth Barkley MD at [facility] ENDOSCOPY ??? PRO UPPER GI ENDOSCOPY, DIAGNOSTIC N/A 11/20/2017 EGD, UPPER GI ENDOSCOPY performed by Elizabeth Barkley MD at [facility] ENDOSCOPY Family and Social History Family History: No family history on file. Social History: Lives in [place] [address] Social History Socioeconomic History ??? Marital status: Spouse name: Not on file ??? Number of children: Not on file ??? Years of education: Not on file ??? Highest education level: Not on file Occupational History ??? Not on file Social Needs ??? Financial resource strain: Not on file ??? Food insecurity: Worry: Not on file Inability: Not on file ??? Transportation needs: Medical: Not on file Non-medical: Not on file Tobacco Use ??? Smoking status: Never Smoker ??? Smokeless tobacco: Never Used Substance and Sexual Activity ??? Alcohol use: Yes Comment: occasional ??? Drug use: No ??? Sexual activity: Yes Partners: Male Lifestyle ??? Physical activity: Days per week: Not on file Minutes per session: Not on file ??? Stress: Not on file Relationships ??? Social connections: Talks on phone: Not on file Gets together: Not on file Attends muslim service: Not on file Active member of club or organization: Not on file Attends meetings of clubs or organizations: Not on file Relationship status: Not on file ??? Intimate partner violence: Fear of current or ex partner: Not on file Emotionally abused: Not on file Physically abused: Not on file Forced sexual activity: Not on file Other Topics Concern ??? Not on file Social History Narrative ??? Not on file Physical Exam Temperature: Heart Rate: Blood Pressure: Respiratory Rate: SpO2: General: Age appropriate, healthy appearing, well-groomed, independently mobile. Communicates easily, speech clear, voice is strong. Awake, alert, and oriented to person, place and time. Affect appropriate. Head and Face: Head is normocephalic, atraumatic. Facial resting tone symmetric. Eyes: Conjugate gaze, ocular motility intact bilaterally. PERRL. Neurologic: Cranial Nerves II-XII grossly intact and symmetric. Ears: External ear and ear canal are without deformity. Right TM was intact but retracted with ivy serous fluid noted. Left tympanic membrane intact, no middle ear fluid. Hearing is grossly normal. Nose: External nose is midline without deformity or lesion. Anterior rhinoscopy reveals a deviated nasal septum to the left, turbinates normal in size. Oral: There are no visible or palpable buccal, gingival, lingual, or palatal lesions. The floor of mouth is soft and flat. Dentition is in good repair. Oropharynx: Symmetric without tonsillar pathology. No other concerning lesions or masses Larynx:No hoarseness or stridor. External laryngeal structures normal to palpation. Face and sinuses are non tender. Salivary glands are soft, non tender, without palpable masses. No temporomandibular joint grinding or locking. Neck: Symmetric. No scars, palpable masses, or crepitus. Midline trachea. Thyroid normal in size, non tender, no palpable mass. Lymphatic: no palpable cervical lymphadenopathy. Pulmonary: Breathing comfortably. Symmetric chest expansion without use of accessory muscles or retraction. Skin: Good skin turgor, no pallor, no icterus. Extremities: No gross deformities, no peripheral edema. Procedures Nasopharyngoscopy was performed. 0 degree scope used to examine the left and right nasal cavities. Septal deviation to the left was noted. Nasopharynx was unremarkable, eustachian tube orifices without overlying mass lesion noted. ASSESSMENT & RECOMMENDATIONS Samira Ascencio is a 43 y.o. female with acute serous otitis media in setting of septal deviation andchronic right eustachian tube dysfunction. Recommendations: 1. For the fluid currently, she will take the antibiotics prescribed and I have also prescribed a medrol dose pack. 2. We again discussed the option of surgery for correction benefits, which in her case I would recommended septoplasty, right eustachian tuboplasty, and possible myringotomy and tube placement depending on if fluid is present at the time of surgery. Risks and benefits of the procedure were discussedin detail, she will consider this for some time and let me know if/when she would like to proceed. O therwise f/u in 6 months for surveillance examination of the retraction pocket on the right. 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
--- OUTSIDE RECORDS SUMMARY | 2023-12-19 02:03 | XMS_ITS | Encounter Summary ---
Author Organization [facility] Address [facility] [place] [address] Care Team Providers Care Mink Farmer Name Role Phone José Luis Cornejo Primary Care Provider [phone] Reason for Visit * Consultation (Routine) - Closed Specialty Diagnoses / Procedures Referred By Emely alvarenga Referred To Contact Dermatology Diagnoses Papule of skin Sangeeta Velasco, [employer] [address] [place] [address] [facility] Dermatology [address] [place] [address] Referral ID Status Reason Start Date Expiration Date V isits Requested Visits Authorized [id number] Closed Consult, Test & Treat PCP Updated and/or Approved 06/08/2023 06/07/2024 1 1 Encounter Details Date Type Department Care Team (Late st Contact Info) Description 09/05/2023 9:40 AM EDT Office Visit Dermatology at [facility] [address] [place] [address] Cullen Capone MD [facility] [address] [place] [address] Multiple benign melanocytic nevi of upper and lower extremities and trunk; Lentigines; Seborrheic keratoses; Young angioma; Seborrheic dermatitis Social History Tobacco Use Types Packs/Day Years Used Date Smoking Tobacco: Never Smokeless Tobacco: Never Alcohol Use Standard Drinks/Week Comments Yes 0 (1 standard drink = 0.6 oz pur e alcohol) occasional Sex and Gender Information Value Date Recorded Sex Assigned at Not on file Gender Identity Not on file Sexual Orientation Not on file documented as of this encounter Patient Instructions * Patient Instructions* Harjeet Dan CMA - 09/05/2023 9:40 AM EDT Images from the original note were not included. Gentle Skin care Recommendations: - Only wash the dirty areas of your body with soap (armpits, groin, face, feet). Do not scrub with a washcloth, loofah or sponge, only use your hands. - Recommended soaps: Vanicream bar soap, CeraVe hydrating cleanser or Dove bars soaps. Avoid excessive exfoliating of the face to 1x per week - It is important to moisturize daily. Apply a bland moisturizer to your whole body immediately after showering when your skin is still damp. - Recommended moisturizers: CeraVe cream, Vanicream moisturizer Face routine: Morning Wash face with bland facial cleanser such CeraVe foaming facial cleanser, Cetaphil or Vanicream Gentle face cleanser Use glycolic acid toner for the face. The Ordinary 7% glycolic acid toner is a good option that be obtained online Then apply board spectrum sunscreen with physical sunscreen merari SPF 30 Recommend list is below. Evening Wash face with bland facial cleanser such CeraVe facial cleanser, Cetaphil or Vanicream gentle facecleanser Use glycolic acid toner for the face recommend above Prescriptions: Then apply Tretinoin cream 0.05-0.1% nightly as tolerated. Start every 3rd night and work your way up to every night at tolerated. Expect mild dryness of the face, which will improve over time Alternative anti-aging compounded topical: Rx: Tretinoin 0.05%, Niacinamide 2% and Hyaluronic acid 0.25% apply nightly to the face. Start every 3rd night and work to night approx. Cost 30g tube $55-60 that will last approx. 2 months if applying nightly to face. Will send Rx to [facility] if interested documented in this encounter Progress Notes * Harjeet Dan, [employer] - 09/05/2023 9:40 AM EDT Images from the original note were not included. DEPARTMENT OF DERMATOLOGY Medical D[facility]atology [facility] Provider: Cullen Capone MD Patient's preferred name Samira Preferred contact method for results [x]Phone []myD-H []Letter Detailed phone message OK? Yes Are there any other people with whom we may discuss your care? , Ananth Ascencio Jr. 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 Patient is referred to the clinic at the request of Sangeeta Velasco for a FSE. Patient reports: - Spot on the left leg which is a raised bump. PCP wasn't sure what it was. - Spot on the right preauricular, getting bigger. Not symptomatic. Review of Systems: General: Feeling well. Skin: No other skin concerns. Medications: Reviewed in eD-H Allergies: Reviewed in eD-H Skin Examination: Full skin examination: Patient asked to undress to their comfort level. Verbalized that the provider's preference is that patient remove all clothing and that the provider will not examine areas patient elects to keep covered. Examination of the scalp, hair, head, face, ears, neck, chest, axillae, abdomen, back, buttocks, and upper and lower extremities was normal with the exception of the findings below. Genitalia not examined. Assessment/Plan #. Seborrheic Dermatitis - Diffuse greasy, loosely adherent scale throughout the scalp. - Discussed etiology and treatment options. - Recommended OTC hydrocortisone or OTC Saclpicin. #. Dermatoheliosis & Prophylaxis - Discussed with pt affect of UVA leading to photoaging, which is present throughout the day. -Discussed importance of wearing sunscreen on a daily basis. Broad spectrum sunscreen at least SPFT30 and sun protective measures. Plan: - Start compounded Rx Hyaluronic acid 0.025% + Tretinoin 0.025% + Niacinamide 2% from [facility]. Apply a pea sized amount topically to the face. Start every third night and work up to nightly. Quoted patient approximately $45-50. - Email: - Please use the medication at night, as sunlight can de-activate the medication. #. Seborrheic Keratoses - Stuck on, waxy papules on the trunk and extremities, including the right preauricular area and left lorenzo. - Discussed benign nature of lesions and provided reassurance. No treatment necessary at this time. #. Young Angiomas - Multiple bright red, well-demarcated papules on the trunk and extremities. - Discussed benign nature of lesions and provided reassurance. No treatment necessary at this time. #. Benign Nevi - Scattered medium brown, evenly pigmented macules and papules on the trunk and extremities with reassuring pigment pattern on dermoscopy. - Discussed benign nature of lesions and provided reassurance. Will continue to monitor. #. Lentigines - Scattered light-brown, evenly pigmented, well-demarcated macules on sun-exposed areas of the trunk and extremities. - No worrisome pigmented lesions. Discussed benign nature of lesions and provided reassurance. Willcontinue to monitor. Other: OTC skin products discussed RTC: 2 years for FSE []Note routed to ward secretary [x]Recall placed in scheduling system []Appointment scheduled at checkout Scribe attestation: Harjeet Dan CMA has performed the documentation for this encounter in the presence of and acting as a scribe for Cullen Capone MD. I performed the above scribed service and agree with the accuracy of the documentation in this encounter. Reviewed and signed by: Cullen Capone MD [facility] documented in this encounter Plan of Treatment Not on file documented as of this encounter Visit Diagnoses Diagnosis Multiple benign melanocytic nevi of upper and lower extremities and trunk Lentigines Other dyschromia Seborrheic keratoses Young angioma Nevus, non-neoplastic Seborrheic dermatitis Seborrheic dermatitis, unspecified documented in this encounter Care Teams Mink Farmer Relationship Specialty Start Date End Date José Luis Cornejo PA [address] [place] [address] PCP - General Family Medicine 09/05/23 documented as of this encounter
--- OUTSIDE RECORDS SUMMARY | 2023-12-19 02:03 | XMS_ITS | Encounter Summary ---
Author Organization [facility] Address [address] [place] [address] Care Team Providers Care Crisis Nurse Name Role Phone Watson Khalil MD Primary Care Provider [phone] Encounter Details Date Type Department Care Team (Late st Contact Info) Description 12/22/2013 Results Only [facility] Laboratory Services - [facility] [address] [place], [place] [address] Jaylin Bell, [facility] [address] [place] [phone] Social History Tobacco Use Types Packs/Day Years Used Date Smoking Tobacco: Never Assessed Sex and Gender Information Value Date Recorded Sex Assigned at Not on file Gender Identity Not on file Sexual Orientation Not on file documented as of this encounter Plan of Treatment Not on file documented as of this encounter Procedures Procedure Name Priority Date/Time Associated Diagnosis Comments PAP TEST- RESULT ONLY Routine 12/22/2013 0:00 EDT documented in this encounter Results * PAP TEST- RESULT ONLY (12/22/2013 0:00 EDT) Pathology Report: CYTOPATHOLOGY REPORT Reports generated via electronic interface contain original data; however they are lacking the format of the original report. Caution should be taken when reading/interpreti ng unformatted reports. Name: ? SNIDERSAMIRA ? Accession #: ? [id number] ? : ? 1975 (Age: 38) ??F ?Collect Date: ? 12/22/2013 ? Location: ? [facility] ? Receive Date: ? 12/23/2013 ? Provider: JAYLIN BELL GIS WEB DEVELOPER Copy to: WATSON KHALIL MD ? Final Report SPECIMEN ADEQUACY ? Satisfactory for Evaluation - transformation zone component present GENERAL CATEGORIZATION ? Negative for Intraepithelial Lesion or Malignancy ?? Last Menstrual Period: 12/03/13 Hormonal/Contracep tive status: Oral contraceptives Specimen/Source: ??Pap Test, Cervix/Endocervix, ThinPrep Imaging System with manual evaluation Document reviewed and electronically signed by: ? AVI Kerr(ASCP) ? Report ??Date: 12/29/2013 10:14 HPV with Pap Test ? Date Ordered: ? 12/29/2013 ? Status: ?? Signed Out ?Date Complete: ? 01/02/2014 ? By: ??System Interface ? Date Reported: ? 01/02/2014 ? Interpretation RESULT: Positive for high or intermediate risk HPV. E6 OR E7 mRNA from one or more types of HPV types 16,18,31, 33,35,39,45,51,52, 56,58,59,66, and 68 is detected by animal damage control agent mediated amplification. High and intermediate risk HPV types are associated with most squamous intraepithelial lesions and cervical cancers. Comments Document reviewed and electronically signed by: ? System Interface ? Report date: 01/02/2014 By the signature above, the attending physician certifies that he/she has personally conducted a gross and/or microscopic examination of the described specimens and rendered or confirmed the above diagnosis. End of Report [facility] 12/22/2013 12/23/2013 Jaylin Bell GIS WEB DEVELOPER PATHOLOGY ORDERABLES Performing Organization Address City/State/[facility] Co de Phone Number [facility] [address] [place] [address] documented in this encounter Visit Diagnoses Not on filedocumented in this encounter Care Teams Crisis Nurse Relationship Specialty Start Date End Date Watson Khalil MD [address] [place] [address] PCP - General 02/18/13 documented as of this encounter
--- OUTSIDE RECORDS SUMMARY | 2023-12-19 02:03 | XMS_ITS | Encounter Summary ---
Author Organization [facility] Address [address] [place] [address] Care Team Providers Care Cpc Coder Name Role Phone Unavailable Primary Care Provider Unavailabl e Encounter Details Date Type Department Care Team (Late st Contact Info) Description 12/17/2012 Results Only [facility] Laboratory Services - [facility] ([facility]) [address] [place], [place] [address] Jaylin Bell, [facility] [address] [place] [address] Social History Tobacco Use Types Packs/Day Years [...] Diagnosis Comments PAP TEST- RESULT ONLY Routine 12/17/2012 0:00 EDT documented in this encounter Results * PAP TEST- RESULT ONLY (12/17/2012 0:00 EDT) Pathology Report: CYTOPATHOLOGY REPORT Reports generated via electronic interface contain original data; however they are lacking the format of the original report. Caution should be taken when reading/interpreti ng unformatted reports. Name: ? SAMIRA SNIDER ? Accession #: ? [id number] : ? 1975 (Age: 37) ??F ?Collect Date: ? 12/17/2012 Location: ? [facility] ? Receive Date: ? 12/18/2012 Provider: ?JAYLIN BELL EXHAUST AND MUFFLER FITTER Copy to: ?RACHID FERNÁNDEZ MD ? Specimen/Source: ?Pap Test, Cervix/Endocervix, ThinPrep Imaging System with manual evaluation Last Menstrual Period: ? 11/24/12 Previous Gynecologic Pathology: ? [facility]: 2009 biopsy benign ? SPECIMEN ADEQUACY ? Satisfactory for Evaluation - transformation zone component present GENERAL CATEGORIZATION ? Negative for Intraepithelial Lesion or Malignancy ? Document reviewed and electronically signed by: ? Olinda Bernard, AVI(ASCP) ? Report Date: ??12/26/2012 14:11 End of Report [facility] 12/17/2012 12/18/2012 Jaylin Bell EXHAUST AND MUFFLER FITTER PATHOLOGY ORDERABLES [facility] [address] [place] [address] documented in this encounter Visit Diagnoses Not on filedocumented in this encounter
--- OUTSIDE RECORDS SUMMARY | 2023-12-19 02:03 | XMS_ITS | Referral Summary ---
Author Organization [facility] Address [address] [place] [address] Care Team Providers Care Personalized Living Manager Nurse Name Role Phone Watson Khalil MD Primary Care Provider [phone] Social History Tobacco Use Types Packs/Day Years Used Date Smoking Tobacco: Never Assessed Sex and Gender Information Value Date Recorded Sex Assigned at Not on file Gender Identity Not on file Sexual Orientation Not on file Plan of Treatment Not on file Care Teams Personalized Living Manager Nurse Relationship Specialty Start Date End Date Watson Khalil MD [address] [place] [id number] PCP - General 02/18/13
--- OUTSIDE RECORDS SUMMARY | 2023-12-19 02:03 | XMS_ITS | Clinical Summary ---
Author Organization [facility] Address [address] [place] [address] Care Team Providers Care Roll Edge Machine Operator Name Role Phone Watson Khalil MD Primary Care Provider [phone] Social History Tobacco Use Types Packs/Day Years Used Date Smoking Tobacco: Never Assessed Sex and Gender Information Value Date Recorded Sex Assigned at Not on file Gender Identity Not on file Sexual Orientation Not on file Plan of Treatment Health Maintenance Due Date Last Done Comments Hepatitis C Screen 1975 Hepatitis B Vaccine (1 of 3 - 19+ 3-dose series) 06/22 COVID-19 Vaccine ( season) 2023 Care Teams Roll Edge Machine Operator Relationship Specialty Start Date End Date Watson Khalil MD [address] [place] [id number] PCP - General 02/18/13
--- OUTSIDE RECORDS SUMMARY | 2023-12-19 02:03 | XMS_ITS | Encounter Summary ---
Author Organization [facility] Address [address] [place] [address] Care Team Providers Care Gas Turbine Mechanic Name Role Phone Watson Khalil MD Primary Care Provider [phone] Encounter Details Date Type Department Care Team (Latest Contact Info) Description 03/22/2015 7:57 EST - 03/22/2015 23:59 EST Hospital Encounter [address] [address] Unknown, Provider, Discharge Disposition: Home or Self Care Social History Tobacco Use Types Packs/Day Years Used Date Smoking Tobacco: Never Assessed Sex and Gender Information Value Date Recorded Sex Assigned at Not on file Gender Identity Not on file Sexual Orientation Not on file documented as of this encounter Discharge Disposition Disposition Code Departure Means Destination Home or Self Fdc documented in this encounter Plan of Treatment Not on file documented as of this encounter Visit Diagnoses Not on filedocumented in this encounter Care Teams Gas Turbine Mechanic Relationship Specialty Start Date End Date Watson Khalil MD [address] [place] [address] PCP - General 02/18/13 documented as of this encounter
--- OUTSIDE RECORDS SUMMARY | 2023-12-19 02:03 | XMS_ITS | Clinical Summary ---
Author Organization [facility] [place] [address] Care Team Providers Care Credit Clerk Name Role Phone José Luis Cornejo Primary Care Provider [phone] Allergies No known active allergies Medications Medication Sig Dispensed Refills Start Date End Date Status levothyroxine (SYNTHROID) 50 mcg Tablet Take 50 mcg by mouth daily. Active citalopram (CeleXA) 10 mg tablet Take 10 mg by mouth daily. Active cetirizine HCl (CETIRIZINE ORAL) Take by mouth. 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 11/19/2018 Eustachian tube dysfunction, bilateral 9 Chronic rhinitis 08/23/2018 Pain in joint, shoulder region 12/05/2011 Impingement syndrome of shoulder 12/05/2011 Social History Tobacco Use Types Packs/Day Years Used Date Smoking Tobacco: Never Smokeless Tobacco: Never Alcohol Use Standard Drinks/Week Comments Yes 0 (1 standard drink = 0.6 oz pur e alcohol) occasional Sex and Gender Information Value Date Recorded Sex Assigned at Not on file Gender Identity Not on file Sexual Orientation Not on file Last Filed Vital Signs Vital Sign Reading Time Taken Comments Blood Pressure 113/72 11/20/2017 3:00 PM EDT Pulse 89 11/20/2017 2:00 PM EDT Temperature - - Respiratory Rate 16 11/20/2017 3:00 PM EDT Oxygen Saturation 98% 11/20/2017 3:00 PM EDT Inhaled Oxygen Concentration - - Weight 54.4 kg (120 lb) 03/10/2019 3:47 PM EDT Height 160 cm (5' 3) 03/10/2019 3:47 PM EDT Body Mass Index 21.26 03/10/2019 3:47 PM EDT Plan of Treatment Health Maintenance Due Date Last Done Comments CT Colonography 1975 FIT DNA 1975 FIT 1975 Sigmoidoscopy 1975 HIV screen 1991 Hepatitis C Screening 1991 Hepatitis B vaccine (0-59 yrs) (1) 1992 Tdap adult 1992 Tetanus vaccine 1992 HPV test 2003 PAP Smear 2003 Breast Cancer Share Decision Needed 2013 Breast Cancer screening 2013 Covid-19 Vaccine ( - 2022- season) 01/12/202312/2020 Zoster vaccine (1 of 2) 2023 Influenza (Flu) vaccine (1 o f 1 - Influenza standard series) 01/13/2024 Colonoscopy 08/15/2026 08/15/2016, 08/15/2016 Colorectal Cancer Screening 08/15/2026 Sigmoidoscopy (10 year) with FIT yearly 08/15/2026 0 08/15/2016, 08/15/2016 Procedures Procedure Name Priority Date/Time Associated Diagnosis Comments COLONOSCOPY Routine 08/15/2016 9:38 AM EDT from Last 3 Months or Most Recently Relevant to Health Maintenance Results * COLONOSCOPY (08/15/2016 9:38 AM EDT) COLONOSCOPY [facility] ___ Procedure Date: 08/15/2016 9:38 AM ? Patient Name: Samira Snider ? Date of : 1975 ? Age: 41 ? Order #: [id number] ? Instrument Name: [id number] ? ___ Procedure: ? Colonoscopy Indications: ? Hematochezia, Diarrhea (intermittent) Providers: ? Elizabeth Barkley MD, Seble Forbes, ? RNBianca, Associate Professor Of Church Music Referring MD: ?[facility] Medicines: ? An additional versed 1 mg and ? fentanyl 50 mcg were given for a ? total of versed 5 mg, fentanyl 250 ? mcg, and diphenhydramine 50 mg IV for ? both procedures. Complications: ? No immediate complications. ___ Procedure: ? The procedure, indications, benefits, ? risks and alternatives were explained ? to the patient. Specifically ? discussed were potential ? complications including, but not ? limited to, bleeding, perforation, ? infection, missing a cancer, and ? adverse medication reactions. The ? patient was placed in the left ? lateral decubitus position, and a ? digital rectal exam was performed. ? The was inserted in the anus and ? under direct visualization, advanced ? to 8 cm into the ileum. Careful ? inspection was made as the ? colonoscope was withdrawn. The ? colonoscopy was performed without ? difficulty. The patient tolerated the ? procedure well. The quality of the ? bowel preparation was evaluated using ? the BBPS ([place] Bowel Preparation ? Scale) with scores of: Right Colon = ? 3, Transverse Colon = 3 and Left ? Colon = 3. The total BBPS score ? equals 9. The quality of the bowel ? preparation was excellent. Scope ? withdrawal time was 8 minutes. ? Findings: ? The terminal ileum appeared normal. Biopsies were ? taken with a cold forceps for histology. ? The entire examined colon appeared normal. Biopsies ? for histology were taken with a cold forceps from the ? right colon and left colon for evaluation of ? microscopic colitis. ? Impression: ?- The examined portion of the ileum ? was normal. Biopsied. ? - The entire examined colon is ? normal. Biopsied. Recommendation: ?- Await pathology results. ? - Return to referring physician as ? previously scheduled. ? Attending Participation: ? I personally performed the entire procedure. I was ? present during the intraservice time as documented by ? the sedation RN. ? __ Elizabeth Barkley MD 08/15/2016 10:22:57 AM Number of Addenda: 0 Note Initiated On: 08/15/2016 9:38 AM PROVATION 08/15/2016 9:38 AM EDT Unknown GENERAL SURGICAL ORD ERABLES PROVATION from Last 3 Months or Most Recently Relevant to Health Maintenance Care Teams Credit Clerk Relationship Specialty Start Date End Date José Luis Cornejo PA [address] [place], [place] [id number] PCP - General Family Medicine 09/05/23
--- OUTSIDE RECORDS SUMMARY | 2023-12-19 02:03 | XMS_ITS | Encounter Summary ---
[place] [address] Care Team Providers Care Sign Language Translator Name Role Phone José Luis Cornejo Primary Care Provider [phone] Encounter Details Date Type Department Care Team (Late st Contact Info) Description 03/17/2019 Telephone [place] [address] Bong Pablo RN Social History Tobacco Use Types Packs/Day Years Used Date Smoking Tobacco: Never Smokeless Tobacco: Never Alcohol Use Standard Drinks/Week Comments Yes 0 (1 standard drink = 0.6 oz pur e alcohol) occasional Sex and Gender Information Value Date Recorded Sex Assigned at Not on file Gender Identity Not on file Sexual Orientation Not on file documented as of this encounter Miscellaneous Notes * Telephone Encounter - Bong Pablo RN - 03/17/2019 2:49 PM EST Patient called because she feels as if she still has fluid in her ear drum. Relayed this information to Dr. Grande who said the next step will be surgery which she already talked about with patient. Told patient this news and that OR schedulers would call her in the next 5-7 days. The patient voiced understanding and had no other questions or concerns. CHING Hollingsworth, nuclear medicine specialist Triage Nurse documented in this encounter Plan of Treatment Not on file documented as of this encounter Visit Diagnoses Not on filedocumented in this encounter Care Teams Sign Language Translator Relationship Specialty Start Date End Date José Luis Cornejo PA [address] [place] [address] PCP - General Family Medicine 05/29/16 12/30/19 documented as of this encounter
--- OUTSIDE RECORDS SUMMARY | 2023-12-19 02:03 | XMS_ITS | Encounter Summary ---
Author Organization [facility] Address [address] [place] [address] Care Team Providers Care Tacker Elastic Band Name Role Phone Watson Khalil MD Primary Care Provider [phone] Encounter Details Date Type Department Care Team (Late st Contact Info) Description 02/17/2013 Results Only [facility] Laboratory Services - [facility] [place] [address] [place] [id number] Watson Khalil MD [address] [place], [place] [address] Social History Tobacco Use Types Packs/Day Years Used Date Smoking Tobacco: Never Assessed Sex and Gender Information Value Date Recorded Sex Assigned at Not on file Gender Identity Not on file Sexual Orientation Not on file documented as of this encounter Plan of Treatment Not on file documented as of this encounter Procedures Procedure Name Priority Date/Time Associated Diagnosis Comments SURGICAL PATHOLOGY Routine 02/17/2013 9:59 EDT documented in this encounter Results * SURGICAL PATHOLOGY (02/17/2013 9:59 EDT) Pathology Report: SURGICAL PATHOLOGY REPORT Reports generated via electronic interface contain original data; however they are lacking the format of the original report. Caution should be taken when reading/interpreti ng unformatted reports. Name: ? SAMIRA SNIDER ? Accession #: ? [id number] ? : ? 1975 (Age: 37) ??F ? Collect Date: ? 02/17/2013 ? Location: ? [facility] ? Receive Date: ? 02/18/2013 ? Provider: WATSON KHALIL MD Copy to: ? Final Pathologic Diagnosis: SKIN OF NECK, POSTERIOR, SHAVE BIOPSY: - Melanocytic nevus, intradermal type. Microscopic Description: Sections are of a papule with mild epidermal hyperplasia and hyperkeratosis. There is a proliferation of melanocytes within the dermis. ??The proliferation consists of nests, cords, and strands that diminish in size with descent into the dermis. ??The melanocytes are slightly enlarged but generally have round-oval nuclei and a moderate amount of cytoplasm. ??The melanocytes show warehouse shipping supervisor maturation. ??(Dr. Villafana)/[facility] Document reviewed and electronically signed by: SERA VILLAFANA MD Report ??Date: 02/19/2013 12:21 By the signature above, the attending physician certifies that he/she has personally conducted a gross and/or microscopic examination of the described specimens and rendered or confirmed the above diagnosis. Specimen(s) Received: Raised, uniformly pigmented lesion posterior neck Clinical History: R/O dysplasia/melanoma ; lesion posterior neck, slowly increasing in size Gross Description: Received in formalin labelled with proper patient identification (initials M, H) and posterior neck is a shave biopsy of leyva-white skin (0.8 x 0.7 cm). There is an eccentric ovoid vasquez-brown granular papule that measures 0.7 x 0.2 x 0.3 cm. ??Trisected and submitted in 1. Nannette Kuamri 02/18/2013 12:41 PM End of Report [facility] 02/17/2013 9:59 EDT 02/18/2013 9:59 EDT Watson Khalil MD PATHOLOGY ORDERABLES [facility] [address] [place] [address] documented in this encounter Visit Diagnoses Not on filedocumented in this encounter Care Teams Tacker Elastic Band Relationship Specialty Start Date End Date Watson Khalil MD [address] [place] [address] PCP - General 02/18/13 documented as of this encounter
--- OUTSIDE RECORDS SUMMARY | 2023-12-19 02:03 | XMS_ITS | Encounter Summary ---
Author Organization [facility] [place] [address] Care Team Providers Care Boiler Testing Technician Name Role Phone José Luis Cornejo Primary Care Provider [phone] Reason for Visit * Reason Comments Follow-up patient is here for ear tube placement Encounter Details Date Type Department Care Team (Late st Contact Info) Description 03/10/2019 3:40 PM EDT Office [place] [address] Tila Grande MD [facility] [place] [address] Eustachian tube dysfunction, bilateral; Recurrent acute serous otitis media of right [...] - Inhaled Oxygen Concentration - - Weight 54.4 kg (120 lb) 03/10/2019 3:47 PM EDT Height 160 cm (5' 3) 03/10/2019 3:47 PM EDT Body Mass Index 21.26 03/10/2019 3:47 PM EDT documented in this encounter Progress Notes * Tila Grande MD - 03/10/2019 3:40 PM EDT [facility] Otolaryngology - Head and Neck Surgery Tila Grande MD 03/10/19 4:26 PM [place], [place] [address] Office Patient Name: Samira Ascencio Date of : 1975 PCP: [facility] Chief Complaint: f/u right serous otitis media History of Present Illness: Samira Ascencio is a 43 y.o. year old female seen in follow up. She has had chronic right serous otitis media and eustachian tube dysfunction. We discussed septoplasty, eustachian tuboplasty, and rightmyringotomy with tube in the OR, but she has deferred this for now. She is here for a right myringotomy with possible tube placement under local anesthesia. Still with right ear blockage sensation. No fevers or chills. No vertigo or dizziness. Hearing is affected. Otherwise doing ok. 10 point Review of Systems [...] of tympanic membrane of right ear H73.891 ??? Recurrent acute serous otitis media of right ear H65.04 Current Outpatient Medications on File Prior to Visit Medication Sig Dispense Refill ??? azelastine (ASTELIN) 137 mcg (0.1 %) Aerosol, Touchet 1 spray by Nasal route 2 times daily. Use in each nostril as directed ??? letrozole (FEMARA) 2.5 mg Tablet Take 2.5 mg by mouth daily. ??? levothyroxine (SYNTHROID) 50 mcg Tablet Take 50 mcg by mouth daily. ??? ibuprofen (ADVIL;MOTRIN) 200 mg tablet Take 400 mg by mouth daily as needed. ??? CALCIUM CARBONATE/VITAMIN D3 (CALCIUM CHEW ORAL) Take by mouth. ??? [DISCONTINUED] methylPREDNISolone (MEDROL, PAULA,) 4 mg Tablets, Dose Pack Use as directed on product package. (Patient not taking: Reported on 03/10/2019) 21 tablet 0 ??? [DISCONTINUED] sertraline (ZOLOFT) 25 mg Tablet Take 25 mg by mouth daily. ??? [DISCONTINUED] citalopram (CELEXA) 20 mg tablet Take 10 mg by mouth daily. ??? [DISCONTINUED] multivitamin (THERAGRAN) tablet Take 1 tablet by mouth daily. No current facility-administered medications on file prior to visit. Allergies: Patient has no known allergies. Surgical History: Past Surgical History: Procedure Laterality Date ??? PRO COLONOSCOPY, DIAGNOSTIC N/A 08/15/2016 COLONOSCOPY, DIAGNOSTIC performed by Elizabeth Barkley MD at [facility] END[facility]COPY ??? PRO UPPER GI ENDOSCOPY, DIAGNOSTIC N/A 08/15/2016 EGD, UPPER GI ENDOSCOPY performed by Elizabeth Barkley MD at [facility] END[facility]COPY ??? PRO UPPER GI ENDOSCOPY, DIAGNOSTIC N/A 11/20/2017 EGD, UPPER GI ENDOSCOPY performed by Elizabteh Barkley MD at [facility] ENDOSCOPY Family and Social History Family History: No family history on file. Social History: Lives [place] [address] Social History Socioeconomic History ??? Marital status: [...] file Gets together: Not on file Attends buddhism service: Not on file Active member of [...] ear and ear canal are without deformity. Ivy serous fluid noted in the middle ear on the right, right tympanic membrane is retracted. Hearing is grossly normal. Nose: External nose is midline without deformity or lesion. Anterior rhinoscopy reveals a septal deviation to the left. Oral: There are no visible or palpable [...] no palpable cervical lymphadenopathy. Pulmonary: Breathing comfortably. Skin: Good skin turgor, no pallor, no icterus. Extremities: No gross deformities, no peripheral edema. Procedures Right myringotomy was performed. After informed consent was obtained, the right ear was examined under binocular microscopy. Phenol was applied to the posterior inferior quadrant of the tympanic membrane. A radial incision was made and ivy serous fluid was suctioned. Placement of tympanostomy tube was attempted but aborted due to patient intolerance. ASSESSMENT & RECOMMENDATIONS Samira Ascencio is a 43 y.o. female with chronic right serous otitis media. Myringotomy with aspiration was performed. Recommendations: 1. She will continue with her nasal hygiene for now 2. F/u in 1 month. Tila Grande MD Otolaryngology - Head and Neck Surgery 03/10/19 4:26 PM documented in this encounter Plan of Treatment Not on file documented as of this encounter Visit Diagnoses Diagnosis Eustachian tube dysfunction, bilateral Recurrent acute serous otitis media of right ear Acute serous otitis media documented in this encounter Care Teams Boiler Testing Technician Relationship Specialty Start Date End Date José Luis Cornejo PA [address] [place] [address] PCP - General Family Medicine 05/29/16 12/30/19 documented as of this encounter
--- OUTSIDE RECORDS SUMMARY | 2023-12-19 02:03 | XMS_ITS | Encounter Summary ---
Author Organization [facility] [place] [address] Care Team Providers Care Failure Analysis Technician Name Role Phone José Luis Cornejo Primary Care Provider [phone]- [phone] Encounter Details Date Type Department Care Team (Late st Contact Info) Description 02/27/2019 Tele[place] [phone] Bong Pablo RN Social History Tobacco Use [...] Telephone Encounter - Bong Pablo RN - 02/27/2019 9:43 AM EDT Left VM for patient in hopes to answer question she called about re surgery. Left direct line for patient to call back if she had further questions. CHING Hollingsworth, camp maintenance supervisor Triage Nurse documented in this encounter Plan of Treatment Not on file documented as of this encounter Visit Diagnoses Not on filedocumented in this encounter Care Teams Failure Analysis Technician Relationship Specialty Start Date End Date José Luis Cornejo PA [address] [place] [address] PCP - General Family Medicine 05/29/16 12/30/19 documented as of this encounter
--- OUTSIDE RECORDS SUMMARY | 2023-12-19 02:03 | XMS_ITS | Encounter Summary ---
Author Organization [facility] Address [address] [place] [address] Care Team Providers Care Cad Detailer Name Role Phone Unavailable Primary Care Provider Unavailabl e Encounter Details Date Type Department Care Team (Late st Contact Info) Description 06/30/2010 Results Only [facility] [place] [facility] [place] [address] [place], [place] [address] Jaylin Bell, [facility] [address] [place] [id number] Social History Tobacco Use Types Packs/Day Years Used Date Smoking Tobacco: Never Assessed Sex and Gender Information Value Date Recorded Sex Assigned at Not on file Gender Identity Not on file Sexual Orientation Not on file documented as of this encounter Plan of Treatment Not on file documented as of this encounter Procedures Procedure Name Priority Date/Time Associated Diagnosis Comments CYTOPATHOLOGY Routine 06/30/2010 0:00 EST documented in this encounter Results * CYTOPATHOLOGY (06/30/2010 0:00 EST) Pathology Report: CYTOPATHOLOGY REPORT ? Reports generated via electronic interface contain original data; ? however they are lacking the format of the original report. ? Caution should be taken when reading/interpreti ng unformatted reports. ? Name: ? SAMIRA SNIDER ? Accession #: ? [id number] ? : ? 1975 (Age: 35) ??F ?Collect Date: ? 06/30/2010 ? Location: ? [facility] ? Receive Date: ? 07/01/2010 ? Provider: ?JAYLIN SHRUTHI ASSISTANT COUNSEL ? Copy to: ? Specimen/Source: ?Pap Test, Cervix/Endocervix, ThinPrep Imaging System ? with manual evaluation ? Last Menstrual Period: ? 1/26/11 ? Hormonal/Contracep tive Status: ? Oral contraceptives ? Previous Gynecologic Pathology: ? LSIL: 2009 ? HPV: + 2009 ? Treatment History: ? Miscellaneous treatment: Bx negative ? Other: ? Additional clinical information: 06/2009 WNL - HPV ? SPECIMEN ADEQUACY ? Satisfactory for Evaluation ? - transformation zone component absent ? GENERAL CATEGORIZATION ? Negative for Intraepithelial Lesion or Malignancy ? Document reviewed and electronically signed by: ? Tera Montgomery, CT(ASCP) ? Report Date: ??07/05/2010 14:36 ? End of Report ? [facility] 06/30/2010 07/01/2010 Jaylin Bell ASSISTANT COUNSEL PATHOLOGY ORDERABLES [facility] [address] [place] [address] documented in this encounter Visit Diagnoses Not on filedocumented in this encounter
--- OUTSIDE RECORDS SUMMARY | 2023-12-19 02:03 | XMS_ITS | Encounter Summary ---
Author Organization [facility] [place] [address] Care Team Providers Care Bench Assembler Name Role Phone None Primary Care Provider Unavailabl e Reason for Referral * Consultation (Routine) - Closed Specialty Diagnoses / Procedures Referred By Emely alvarenga Referred To Contact Dermatology Diagnoses Papule of skin Sangeeta Velacso APRN [address] [place] [address] [facility] [address] [place] [address] Referral ID Status Reason Start Date Expiration Date V isits Requested Visits Authorized [id number] Closed Consult, Test & Treat PCP Updated and/or Approved 06/08/2023 06/07/2024 1 1 Encounter Details Date Type Department Care Team (Late st Contact Info) Description 06/08/2023 Transcribe Orders eDH Incoming Referrals [phone] Sangeeta Velasco APRN [address] [place], [place] [id number] Papule of skin Social History Tobacco Use Types Packs/Day Years Used Date Smoking Tobacco: Never Smokeless Tobacco: Never Alcohol Use Standard Drinks/Week Comments Yes 0 (1 standard drink = 0.6 oz pur e alcohol) occasional Sex and Gender Information Value Date Recorded Sex Assigned at Not on file Gender Identity Not on file Sexual Orientation Not on file documented as of this encounter Plan of Treatment Scheduled Referrals Name Type Priority Associated Diagnoses Order Schedule Referral to Dermatology Outpatient Referral Routine Papule of skin Ordered: 06/08/2023 documented as of this encounter Visit Diagnoses Diagnosis Papule of skin documented in this encounter Care Teams Bench Assembler Relationship Specialty Start Date End Date None None PCP - General 06/08/23 09/04/23 documented as of this encounter
--- OUTSIDE RECORDS SUMMARY | 2023-12-19 02:03 | XMS_ITS | Encounter Summary ---
Author Organization [facility] Address [address] [place] [address] Care Team Providers Care Well Treatment Offsider Name Role Phone Watson Khalil MD Primary Care Provider [phone] Encounter Details Date Type Department Care Team (Late st Contact Info) Description 02/08/2015 Results Only [facility] [phone] Jaylin Blel, [facility] [address] [place] [address] Social History Tobacco Use Types [...] Diagnosis Comments PAP TEST- RESULT ONLY Routine 02/08/2015 0:00 EDT documented in this encounter Results * PAP TEST- RESULT ONLY (02/08/2015 0:00 EDT) Pathology Report: CYTOPATHOLOGY REPORT Reports generated via electronic interface contain original data; however they are lacking the format of the original report. Caution should be taken when reading/interpreti ng unformatted reports. Name: ? SAMIRA SNIDER ? Accession #: ? [id number] ? : ? 1975 (Age: 39) ??F ?Collect Date: ? 02/08/2015 ? Location: ? [facility] ? Receive Date: ? 02/09/2015 ? Provider: JAYLIN BELL TREER Copy to: WATSON KHALIL MD ? Final Report SPECIMEN ADEQUACY ? Satisfactory for Evaluation - transformation zone component present GENERAL CATEGORIZATION ? Negative for Intraepithelial Lesion or Malignancy ?? Last Menstrual Period: 01/14/2015 Previous Gynecologic Pathology: HPV: + 2013 Specimen/Source: ??Pap Test, Cervix/Endocervix, ThinPrep Imaging System with manual evaluation Document reviewed and electronically signed by: ? Kia Perez, CT(ASCP) ? Report ??Date: 02/11/2015 09:47 HPV with Pap Test ? Date Ordered: ? 02/10/2015 ? Status: ?? Signed Out ?Date Complete: ? 02/18/2015 ? By: ??System Interface ? Date Reported: ? 02/18/2015 ? Interpretation RESULT: Positive for high or intermediate risk HPV. E6 OR E7 mRNA from one or more types of HPV types 16,18,31, 33,35,39,45,51,52, 56,58,59,66, and 68 is detected by avionics systems technician mediated amplification. High and intermediate risk HPV types are associated with most squamous intraepithelial lesions and cervical cancers. Comments Document reviewed and electronically signed by: ? System Interface ? Report date: 02/18/2015 By the signature above, the attending physician certifies that he/she has personally conducted a gross and/or microscopic examination of the described specimens and rendered or confirmed the above diagnosis. End of Report [facility] 02/08/2015 02/09/2015 Jaylin Bell TREER PATHOLOGY ORDERABLES [facility] [address] [place] [address] documented in this encounter Visit Diagnoses Not on filedocumented in this encounter Care Teams Well Treatment Offsider Relationship Specialty Start Date End Date Watson Khalil MD [address] [place] [address] PCP - General 02/18/13 documented as of this encounter
--- OUTSIDE RECORDS SUMMARY | 2023-12-19 02:03 | XMS_ITS | Encounter Summary ---
Author Organization [facility] Address [address] [place] [address] Care Team Providers Care Stores Assistant Name Role Phone Watson Khalil MD Primary Care Provider [phone] Encounter Details Date Type Department Care Team (Late st Contact Info) Description 03/22/2015 Results Only [facility]- [facility] [place] [phone] Carmen Wadsworth MD [address] [place] [address] [place] [address] Social History Tobacco Use Types Packs/Day Years Used Date Smoking Tobacco: Never Assessed Sex and Gender Information Value Date Recorded Sex Assigned at Not on file Gender Identity Not on file Sexual Orientation Not on file documented as of this encounter Plan of Treatment Not on file documented as of this encounter Procedures Procedure Name Priority Date/Time Associated Diagnosis Comments SURGICAL PATHOLOGY Routine 03/22/2015 9:32 EST documented in this encounter Results * SURGICAL PATHOLOGY (03/22/2015 9:32 EST) Pathology Report: SURGICAL PATHOLOGY REPORT Reports generated via electronic interface contain original data; however they are lacking the format of the original report. Caution should be taken when reading/interpret ing unformatted reports. Name: ? SAMIRA SNIDER ? Accession #: ? [id number] ? : ? 1975 (Age: 39) ??F ? Collect Date: ? 03/22/2015 ? Location: ? [facility] ? Receive Date: ? 03/23/2015 ? Provider: CARMEN WADSWORTH MD Copy to: WATSON KHALIL MD ? Final Pathologic Diagnosis: ENDOCERVIX, CURETTAGE: - ??Scant benign endocervical tissue. - ??Abundant cervical mucus. Dr. Velasco 03/25/2015 12:24 PM Document reviewed and electronically signed by: OPAL AMBROCIO MD Report ??Date: 03/25/2015 16:16 By the signature above, the attending physician certifies that he/she has personally conducted a gross and/or microscopic examination of the described specimens and rendered or confirmed the above diagnosis. Specimen(s) Received: Endo cx curettage Clinical History: HPV pos x2 yr Gross Description: ? Received in formalin labelled with proper patient identification (initials M, H) and endo cx bx is an aggregate of slightly blood tinged mucus (1.5 x 1.5 x 0.3 cm). ??Submitted in toto in block 1. Nayeli Bassett 03/23/2015 10:53 AM End of Report [facility] 03/22/2015 9:32 EST 03/23/2015 9:32 EST Carmen Wadsworth MD PATHOLOGY ORDERABLES [facility] [address] [place] [address] documented in this encounter Visit Diagnoses Not on filedocumented in this encounter Care Teams Stores Assistant Relationship Specialty Start Date End Date Watson Khalil MD [address] [place] [address] PCP - General 02/18/13 documented as of this encounter
--- OUTSIDE RECORDS SUMMARY | 2023-12-19 02:03 | XMS_ITS | Encounter Summary ---
Author Organization [facility] Address [address] [place] [address] Care Team Providers Care Pitch Flaker Name Role Phone Unavailable Primary Care Provider Unavailabl e Encounter Details Date Type Department Care Team (Late st Contact Info) Description 12/11/2011 Results Only [facility] - [facility] [address], [place] [id number] Jaylin Bell, [facility] [address] [place] [address] Social History Tobacco Use Types [...] Diagnosis Comments PAP TEST- RESULT ONLY Routine 12/11/2011 0:00 EDT documented in this encounter Results * PAP TEST- RESULT ONLY (12/11/2011 0:00 EDT) Pathology Report: CYTOPATHOLOGY REPORT Reports generated via electronic interface contain original data; however they are lacking the format of the original report. Caution should be taken when reading/interpreti ng unformatted reports. Name: ? SAMIRA SNIDER ? Accession #: ? [id number] : ? 1975 (Age: 36) ??F ?Collect Date: ? 12/11/2011 Location: ? [facility] ? Receive Date: ? 12/12/2011 Provider: ?JAYLIN BELL GIZZARD SKIN REMOVER Copy to: ?RACHID FERNÁNDEZ MD ? Specimen/Source: ?Pap Test, Cervix/Endocervix, ThinPrep Imaging System with manual evaluation Last Menstrual Period: ? 11/29/11 Previous Gynecologic Pathology: ? LSIL: 2008 Treatment History: ? Miscellaneous treatment: Bx benign ? SPECIMEN ADEQUACY ? Satisfactory for Evaluation - transformation zone component present GENERAL CATEGORIZATION ? Negative for Intraepithelial Lesion or Malignancy ? Document reviewed and electronically signed by: ? Arnav Gallagher, AVI(ASCP) ? Report Date: ??12/21/2011 10:26 End of Report [facility] 12/11/2011 12/12/2011 Jaylin Bell GIZZARD SKIN REMOVER PATHOLOGY ORDERABLES Performing Organization Address City/State/[facility] Co de Phone Number KING[facility] GALEANA [address] [place] [address] documented in this encounter Visit Diagnoses Not on filedocumented in this encounter
--- OUTSIDE RECORDS SUMMARY | 2023-12-19 02:03 | XMS_ITS | Encounter Summary ---
Author Organization [place] [address] Care Team Providers Care Blueprint Engineer Name Role Phone José Luis Cornejo Primary Care Provider [phone] Reason for Visit * Reason Onset Date Comments Questions 02/26/2019 Encounter Details Date Type Department Care Team (Late st Contact Info) Description 02/26/2019 [place] [id number] Romain Barreto Questions Social History Tobacco Use Types Packs/Day Years [...] encounter Miscellaneous Notes * Telephone Encounter - Romain Barreto - 02/26/2019 1:05 PM EDT Caller and relationship to patient (if other than patient): Samira Phone: Best time to reach caller: Until 2:15 today or after 3pm; ok to leave a message Message or Reason for Call: Please call Samira back. She waiting to find out Dr. Grande's recommendation regarding proceeding with ear tubes. Also how soon could this happen? Samira called yesterday but has not heard back. Thanks, Appt Needed and Reason: Procedure Provider: Tila Grande MD documented in this encounter Plan of Treatment Not on file documented as of this encounter Visit Diagnoses Not on filedocumented in this encounter Care Teams Blueprint Engineer Relationship Specialty Start Date End Date José Luis Cornejo PA [address] [place] [address] PCP - General Family Medicine 05/29/16 12/30/19 documented as of this encounter
--- OUTSIDE RECORDS SUMMARY | 2023-12-19 02:03 | XMS_ITS | Encounter Summary ---
Author Organization [facility] [place] [address] Care Team Providers Care Ordinary Seaman Name Role Phone José Luis Cornejo Primary Care Provider [phone] Encounter Details Date Type Department Care Team (Late st Contact Info) Description 05/27/2019 [place] [address] Serena Carter RN Social History Tobacco Use Types Packs/Day [...] encounter Miscellaneous Notes * Telephone Encounter - Serena Carter RN - 05/27/2019 2:14 PM EST Patient's call returned re: what steroid was prescribed by Dr. Grande. Patient would like spelling anddose information of steroids that were prescribed and nasal spray prescribed. No other questions atthis time. documented in this encounter Plan of Treatment Not on file documented as of this encounter Visit Diagnoses Not on filedocumented in this encounter Care Teams Ordinary Seaman Relationship Specialty Start Date End Date José Luis Cornejo PA [address] [place] [address] PCP - General Family Medicine 05/29/16 12/30/19 documented as of this encounter
--- OUTSIDE RECORDS SUMMARY | 2023-12-19 02:03 | XMS_ITS | Encounter Summary ---
Author Organization [facility] Address [address] [place] [address] Care Team Providers Care Security Representative Name Role Phone Watson Khalil MD Primary Care Provider [phone] Encounter Details Date Type Department Care Team (Late st Contact Info) Description 03/28/2016 Results Only [facility]- [facility] [phone] Jaylin Bell, [facility] [address] [place] [address] Social History Tobacco Use Types [...] Diagnosis Comments PAP TEST- RESULT ONLY Routine 03/28/2016 0:00 EST documented in this encounter Results * PAP TEST- RESULT ONLY (03/28/2016 0:00 EST) Pathology Report: CYTOPATHOLOGY REPORT Reports generated via electronic interface contain original data; however they are lacking the format of the original report. Caution should be taken when reading/interpreti ng unformatted reports. Name: ? SAMIRA COLMENARES ? Accession #: ? [id number] ? : ? 1975 (Age: 40) ??F ?Collect Date: ? 03/28/2016 ? Location: ? [facility] ? Receive Date: ? 03/29/2016 ? Provider: JAYLIN BELL CHIP CRUSHER OPERATOR Copy to: WATSON KHALIL MD ? Final Report SPECIMEN ADEQUACY ? Satisfactory for Evaluation - transformation zone component present GENERAL CATEGORIZATION ? Negative for Intraepithelial Lesion or Malignancy INTERPRETATION ? Fungal organisms present morphologically consistent with Sherice species. Last Menstrual Period: 03/17/2016 Previous Gynecologic Pathology: HPV: + 2013, 2015 Other: Additional clinical information: Neg ECC 03/2015 Specimen/Source: ??Pap Test, Cervix, ThinPrep Imaging System with manual evaluation Document reviewed and electronically signed by: ? AVI Kerr(ASCP) ? Report ??Date: 04/04/2016 13:14 HPV with Pap Test ? Date Ordered: ? 04/04/2016 ? Status: ?? Signed Out ?Date Complete: ? 04/07/2016 ? By: ??System Interface ? Date Reported: ? 04/07/2016 ? Interpretation RESULT: Negative for HPV. No E6 or E7 mRNA is detected from HPV types 16,18,31,33,35, 39,45,51,52,56,58, 59,66, and 68 by tactical air control party mediated amplification. Comments Document reviewed and electronically signed by: ? System Interface ? Report date: 04/07/2016 By the signature above, the attending physician certifies that he/she has personally conducted a gross and/or microscopic examination of the described specimens and rendered or confirmed the above diagnosis. End of Report [facility] 03/28/2016 03/29/2016 Jaylin Bell CHIP CRUSHER OPERATOR PATHOLOGY ORDERABLES [facility] [address] [place] [address] documented in this encounter Visit Diagnoses Not on filedocumented in this encounter Care Teams Security Representative Relationship Specialty Start Date End Date Watson Khalil MD [address] [place] [address] PCP - General 02/18/13 documented as of this encounter
--- OUTSIDE RECORDS SUMMARY | 2023-12-19 02:03 | XMS_ITS | Encounter Summary ---
Author Organization [facility] [place] [address] Care Team Providers Care Journalist Name Role Phone Unknown Primary Care Provider Unavailabl e Encounter Details Date Type Department Care Team (Latest Contact Info) Description 04/21/2022 Travel Social History Tobacco Use Types Packs/Day [...] on filedocumented in this encounter Care Teams Journalist Relationship Specialty Start Date End Date Unknown None PCP - General 12/31/19 06/07/22 documented as of this encounter
--- OUTSIDE RECORDS SUMMARY | 2023-12-19 02:03 | XMS_ITS | Continuity of Care Document ---
Author Organization [facility] Address [address] [place] [address] Care Team Providers Care Remelt Worker Name Role Phone Marjan Cornejoclementela Andrew Primary Care Physician Encounter [facility] NBR [id number] Date(s): 05/25/22 - 05/25/22 [facility] [address] [place] [address] [place] Encounter Diagnosis Encounter for screening mammogram for malignant neoplasm of breast(Discharge Diagnosis) - 05/25/22 Discharge Disposition: Home or Self Care Attending Physician: Khloe Khoury APRN Allergies, Adverse Reactions, Alerts Substance Reaction Severity Status Seasonal Moderate Active Assessment and Plan Future Appointments Future Scheduled Tests Radiology* MG Mammo Screening Bilateral 05/25/22 Functional Status 05/25/22 Recent Travel History No recent travel Other exposure to Infectious Disease Non e Medications citalopram 10 mg oral tablet 1 Unknown, 0 Refill(s) Start Date: 03/13/22 Status: Ordered Claritin-D 24 Hour oral tablet, extended release 1 Unknown, 0 Refill(s) Start Date: 03/13/22 Status: Ordered clobetasol 0.05% topical ointment 0 Refill(s) Start Date: 03/13/22 Status: Ordered Delta D3 10 mcg (400 intl units) oral tablet 0 Refill(s) Start Date: 03/13/22 Status: Ordered Flonase 50 mcg/inh nasal spray 1 sprays, Nasal, every morning, 0 Refill(s) Start Date: 05/25/22 Status: Ordered hydrocortisone 25 mg rectal suppository 1 Unknown, 0 Refill(s) Start Date: 03/13/22 Status: Ordered levothyroxine 50 mcg (0.05 mg) oral tablet 0 Refill(s) Start Date: 03/13/22 Status: Ordered magnesium gluconate 250 mg oral tablet 1 Unknown, 0 Refill(s) Start Date: 03/13/22 Status: Ordered ZyrTEC 10 mg oral tablet 10 mg = 1 tab, Oral, Daily, # 90 tab, 0 Refill(s) Start Date: 05/25/22 Status: Ordered Problem List Condition Confirmation Course Effective Dates Status H ealth Status Informant Allergic rhinitis Confirmed Active Chronic otitis media Confirmed Active Environmental allergy Confirmed Active 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 Human papillomavirus deoxyribonucleic acid test positive, high risk on cervical specimen 1 Confirmed Active Migraine without aura Confirmed Active Osteoarthritis of joint of left shoulder region Confirmed Active Otalgia of left ear Confirmed Active Palpitations Confirmed Active Pancreatitis Confirmed Active Phonophobia Confirmed Active 04/17/2018 NEG PAP/ + HR HPV non 16/18 Procedures Procedure Date Related Diagnosis Body Site Status Manipulation of shoulder 1 05/2019 Completed Colonoscopy Completed Endoscopy Completed Extraction of impacted wisdom tooth 2 Completed 1frozen shoulder 2x4 Vital Signs Most recent to oldest [Reference Range]: 1 Blood Pressure [90-140/60-90 mmHg] 110/6 2mmHg (05/25/22 3:11 PM) Weight 61.6 kg (05/25/22 2:55 PM) Weight Measured (lbs) 135.805 lb (05/25/22 2:55 PM) [place] Body Weight Calculated 52.4 kg (05/25/22 2:55 PM) Height 160.02 cm (05/25/22 2:55 PM) Height/Length Measured (inches) 63 inch (05/25/22 2:55 PM) BSA Measured 1.65 m2 (05/25/22 2:55 PM) Body Mass Index 24.06 kg/m2 (05/25/22 2:55 PM) Social History Social History Type Response Tobacco Never tobacco user T obacco Use:. Sex Patient Care team information Personnel Name: José Luis Cornejo Address: Address: [address] [place] [address] [address] [place] [address]- [place]
--- OUTSIDE RECORDS SUMMARY | 2023-12-19 02:03 | XMS_ITS | Encounter Summary ---
[place] [address] Care Team Providers Care Rn Patient Care Name Role Phone José Luis Cornejo Primary Care Provider [phone] Encounter Details Date Type Department Care Team (Late st Contact Info) Description 11/18/2018 11:00 AM EDT Office Visit Audiology at [address] [address] Riri Cole AUD [facility] [place] [address] Type C tympanogram of right ear; Sensation of pressure in ear, left Social History Tobacco Use Types Packs/Day Years Used Date Smoking Tobacco: Never Smokeless Tobacco: Never Alcohol Use Standard Drinks/Week Comments Yes 0 (1 standard drink = 0.6 oz pur e alcohol) occasional Sex and Gender Information Value Date Recorded Sex Assigned at Not on file Gender Identity Not on file Sexual Orientation Not on file documented as of this encounter Progress Notes * Riri oCle AUD - 11/18/2018 11:00 AM EDT AUDIOLOGIC EVALUATION Samira Ascencio was seen on 11/18/2018 for an audiologic evaluation as medically indicated in conjunction with Dr Grande in otolaryngology. Please refer to the scanned audiogram listed under Procedures for findings, impressions and recommendations. Woo Tripp, [facility] [place] [address] documented in this encounter Plan of Treatment Not on file documented as of this encounter Procedures Procedure Name Priority Date/Time Associated Diagnosis Comments COMPREHENSIVE HEARING TEST Routine 11/18/2018 11:03 AM EDT documented in this encounter Results * Comprehensive hearing test (11/18/2018 11:03 AM EDT) 11/18/2018 11:0 3 AM EDT Narrative [facility] - 11/18/2018 11:03 AM EDT Follow up as recommended by Dr. Grande. Procedure Note Unknown - 11/18/2018 Follow up as recommended by Dr. Grande. Unknown AUDIOLOGY SERVICES O RDERABLES [facility] documented in this encounter Visit Diagnoses Diagnosis Type C tympanogram of right ear Other disorders of middle ear and mastoid Sensation of pressure in ear, left documented in this encounter Care Teams Rn Patient Care Relationship Specialty Start Date End Date José Luis Cornejo PA [address] [place] [address] PCP - General Family Medicine 05/29/16 12/30/19 documented as of this encounter
--- OUTSIDE RECORDS SUMMARY | 2023-12-19 02:03 | XMS_ITS | Encounter Summary ---
Author Organization [facility] [place] [address] Care Team Providers Care Butting Saw Operator Name Role Phone Unknown Primary Care Provider Unavailabl e Reason for Referral * Diagnostic Test (Routine) - Closed Specialty Diagnoses / Procedures Referred By Contac t Referred To Contact Radiology Diagnoses Family history of ischemic heart disease Procedures CT Heart For Coronary Calcium wo Contrast (Prepaid) Winifred Coulter ND [address] [place] [address] [facility] [place] [address] Referral ID Status Reason Start Date Expiration Date V isits Requested Visits Authorized [id number] Closed Specialty Service Requested 03/10/2022 09/09/2023 1 1 Reason for Visit * Diagnostic Test (Routine) - Closed Specialty Diagnoses / Procedures Referred By Contac t Referred To Contact Radiology Diagnoses Family history of ischemic heart disease Procedures CT Heart For Coronary Calcium wo Contrast (Prepaid) Winifred Coulter ND [address] [place] [address] [facility] [place] [address] Referral ID Status Reason Start Date Expiration Date V isits Requested Visits Authorized [id number] Closed Specialty Service Requested 03/10/2022 09/09/2023 1 1 Encounter Details Date Type Department Care Team (Latest Contact Info) Description 04/21/2022 2:53 PM EST - 04/21/2022 11:59 PM EST Hospital [place] [address] Yfn Winifred M, ND [address] [place] [address] Family history of ischemic heart disease Discharge Disposition: Home Social History Tobacco Use Types Packs/Day Years Used Date Smoking Tobacco: Never Smokeless Tobacco: Never Alcohol Use Standard Drinks/Week Comments Yes 0 (1 standard drink = 0.6 oz pur e alcohol) occasional Sex and Gender Information Value Date Recorded Sex Assigned at Not on file Gender Identity Not on file Sexual Orientation Not on file documented as of this encounter Medications at Time of Discharge Medication Sig Dispensed Refills Start Date End Date levothyroxine (SYNTHROID) 50 mcg Tablet Take 50 mcg by mouth daily. azelastine (ASTELIN) 137 mcg (0.1 %) Aerosol, Dexter 1 spray by Nasal route 2 times daily. Use in each nostril as directed 09/05/2023 letrozole (FEMARA) 2.5 mg Tablet Take 2.5 mg by mouth daily. 09/05/2023 ibuprofen (ADVIL;MOTRIN) 200 mg tablet Take 400 mg by mouth daily as needed. 09/05/2023 CALCIUM CARBONATE/VITAMIN D3 (CALCIUM CHEW ORAL) Take by mouth. 2023 documented as of this encounter Plan of Treatment Not on file documented as of this encounter Procedures Procedure Name Priority Date/Time Associated Diagnosis Comments CT HEART FOR CORONARY CALCIUM WO CONTRAST (PREPAID) Routine 04/21/2022 3:22 PM EST Family history of ischemic heart disease documented in this encounter Results * CT Heart For Coronary Calcium wo Contrast (Prepaid) (04/21/2022 3:22 PM EST) Anatomical Region Laterality Modality Chest, Cardiac Computed Tomogra phy Impressions 04/23/2022 8:22 AM EST 1. ??Coronary calcium score of 6, consistent with minimal atherosclerotic plaque burden and 91%-ile rank based on age, race/ethnicity, and gender. Thank you for letting us participate in the care of this patient. ??If you are a health care provider and have any questions regarding this report, please contact the number below. ??For patients who have questions please contact the health patient care that requested your imaging first. ? Electronically signed by: Antonia Starr MD, [facility] ([phone]), at 04/23/2022 8:22 AM Narrative 04/23/2022 8:22 AM EST EXAMINATION: CT HEART FOR CORONARY CALCIUM WO CONTRAST (PREPAID) CLINICAL HISTORY: Family history of ischemic heart disease and other diseases of the circulatory system COMPARISON: None. TECHNIQUE: 3.0 mm thick axial contiguous sections through the heart were obtained via ECG-gated axial mode acquisition without intravenous contrast. Craniocaudal coverage and [id number] were restricted to the heart. Post-processing was performed on an independent computer workstation consisting of coronary calcium scoring. FINDINGS: Coronary calcium score: Left main: ??Agatston score: 0 Left anterior descending: ??Agatston score: 6 Left circumflex: ??Agatston score: 0 Right coronary: ??Agatston score: 0 TOTAL: ??Agatston score: 6 Atherosclerotic plaque burden, based on Agatston score: Minimal Percentile rank, for subjects of the same age, gender, and race/ethnicity who are free of clinical cardiovascular disease and treated diabetes: 91%-ile. Estimated probability of a nonzero calcium score, based on age, race/ethnicity, and gender: 13% Reference: Celina REILLY, Janak H, Lizbeth R, et al. ??Distribution of coronary artery calcium by race, gender, and age: results from the Multi-Ethnic Study of Atherosclerosis (BARNEY). Circulation. 2006;113(1):30-37. Other cardiovascular structures: No significant findings. Other mediastinal structures: No significant findings Pulmonary parenchyma, airways, pleura: No significant findings. Upper abdomen: No significant findings Skeletal Structures: No significant findings. Procedure Note Antonia Royal MD - 04/23/2022 EXAMINATION: CT HEART FOR CORONARY CALCIUM WO CONTRAST (PREPAID) CLINICAL HISTORY: Family history of ischemic heart disease and other diseases of thecirculatory system COMPARISON: None. TECHNIQUE: 3.0 mm thick axial contiguous sections through the heart were obtained via ECG-gated axial mode acquisition without intravenouscontrast. Craniocaudal coverage and [id number] were restricted to the heart. Post-processing was performed on an independent computer workstationconsisting of coronary calcium scoring. FINDINGS: Coronary calcium score: Left main: Agatston score: 0 Left anterior descending: Agatston score: 6 Left circumflex: Agatston score: 0 Right coronary: Agatston score: 0 TOTAL: Agatston score: 6 Atherosclerotic plaque burden, based on Agatston score: Minimal Percentile rank, for subjects of the same age, gender, and race/ethnicitywho are free of clinical cardiovascular disease and treated diabetes:91%-ile. Estimated probability of a nonzero calcium score, based on age,race/ethnicity, and gender: 13% Reference: Celina RL, Briceno H, Lizbeth R, et al. ??Distribution ofcoronary artery calcium by race, gender, and age: results from the Multi-EthnicStudy of Atherosclerosis (BARNEY). Circulation. 2006;113(1):30-37. Other cardiovascular structures: No significant findings. Other mediastinal structures: No significant findings Pulmonary parenchyma, airways, pleura: No significant findings. Upper abdomen: No significant findings Skeletal Structures: No significant findings. IMPRESSION 1. Coronary calcium score of 6, consistent with minimal atheroscleroticplaque burden and 91%-ile rank based on age, race/ethnicity, and gender. Thank you for letting us participate in the care of this patient. If youare a health care provider and have any questions regarding this report,please contact the number below. For patients who have questions please contactthe health patient care that requested your imaging first. Electronically signed by: Antonia Starr MD, [facility] ([phone]), at 04/23/2022 8:22 AM Winifred Coulter ND IMG CT ORDERABLES documented in this encounter Visit Diagnoses Diagnosis Family history of ischemic heart disease documented in this encounter Care Teams Butting Saw Operator Relationship Specialty Start Date End Date Unknown None PCP - General 12/31/19 06/07/22 documented as of this encounter
--- OUTSIDE RECORDS SUMMARY | 2023-12-19 02:03 | XMS_ITS | Continuity of Care Document ---
Author Organization [facility] Address [address] [place] [id number] Care Team Providers Care Communication Spec Name Role Phone José Luis Cornejo Primary Care Physician Encounter [facility] NBR [id number] Date(s): 08/28/23 - 08/28/[address] [address]- [place] Discharge Disposition: Home Allergies, Adverse Reactions, Alerts Substance Reaction Severity Status Seasonal Moderate Active Assessment and Plan Future Appointments Future Scheduled Tests Radiology* MG Mammo Screening Bilateral 08/28/23 Medications citalopram 10 mg oral tablet 10 mg = 1 tab, Oral, Daily, 0 Refill(s) Start Date: 03/13/22 Status: Ordered Claritin-D 24 Hour oral tablet, extended release 1 Unknown, 0 Refill(s) Start Date: 03/13/22 Status: Ordered clobetasol 0.05% topical ointment See Instructions, apply a thin film weekly, # 30 g, 1 Refill(s), Pharmacy: [id number] Start Date: 05/28/22 Status: Ordered clobetasol 0.05% topical ointment 0 [...] levothyroxine 50 mcg (0.05 mg) oral tablet 1 tab, Oral, Daily, # 30 tab, 3 Refill(s), Pharmacy: [facility] Start Date: 06/05/22 Status: Ordered ZyrTEC 10 mg oral tablet [...] risk on cervical specimen 1 Confirmed Active Hypothyroidism Confirmed Active Migraine without aura Confirmed Active [...] wisdom tooth 2 Completed 1frozen shoulder 2x4 Social History Social History Type Response Smoking Status Smoking tobacco use: Never tobacco user;Never entered on: 08/28/23 Sex Female Patient Care team information Care Team Related Persons Name: KOBE COLMENARES JR Address: Home [address] [place] [phone] [facility]
--- OUTSIDE RECORDS SUMMARY | 2023-12-19 02:03 | XMS_ITS | Encounter Summary ---
[place] [address] Care Team Providers Care Photoengraving Etcher Name Role Phone José Luis Cornejo Primary Care Provider [phone] Encounter Details Date Type Department Care Team (Late st Contact Info) Description 05/27/2019 Telephone [place] [address] Serena Carter RN Social History [...] Encounter - Serena Carter RN - 05/27/2019 9:40 AM EST Patient's call returned re: what steroid was prescribed by Dr. Grande. VM left with this information. Call back number left if she should have further questions. documented in this encounter Plan of Treatment Not on file documented as of this encounter Visit Diagnoses Not on filedocumented in this encounter Care Teams Photoengraving Etcher Relationship Specialty Start Date End Date José Luis Cornejo PA [address] [place] [address] PCP - General Family Medicine 05/29/16 12/30/19 documented as of this encounter
--- OUTSIDE RECORDS SUMMARY | 2023-12-19 02:03 | XMS_ITS | Continuity of Care Document ---
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 Maintaining a healthy diet rich in Calcium, Vitamin D, and [place] 3s is recommended for overall health. Magnesium is often depleted in women. Taking Magnesium 250 mg daily can be helpful to decrease inflammation, headache prevention, improves cramping, sleep benefits, and help with bowels.?? We discussed Ibuprofen 600 mg every 4 hours prior to cycle for the first 2 days, to help with cramping, flow. Recommended she consider strength training to increase/maintain muscle mass which will also help with weight management and bone health in the perimenopause. We reviewed??perimenopause, associated symptoms. An??evidenced based??resource Dr Danielle Fragoso, is an excellent, evidenced based??resource for women across the lifespan.? We reviewed her menstrual cycles and a normal transition into menopause. It sounds like her cycles are still ovulatory based on the symptoms she describes. If there are worrisome changes over 6 months time, to call for further evaluation. ? 2.??Breast cancer screening by mammogram??Z12.31 ??Will fax order to [facility]. Ordered: MG Mammo Screening Bilateral, 08/28/23, Routine, Reason: screening, [facility], Transport Mode: Ambulatory, Breast cancer screening by mammogram ?? 3.??Pap smear for cervical cancer screening??Z12.4 Pap smears are not recommended yearly for many women and should be done based on screening recommendations. Many low risk women actually only need a pap every 3 years or every 5 years. This testing is done to look for evidence of precancerous changes involving your cervix or vagina that come as a result of a viral infection from the Human Papilloma Virus. It is still recommended for most women to have breast and pelvic exams even if they do not need to have a pap smear.? Future Appointments Future Scheduled Tests Radiology* MG [...] weekly, # 30 g, 1 Refill(s), Pharmacy: [facility] #[facility] Start Date: 05/28/22 Status: Ordered clobetasol [...] Daily, # 30 tab, 3 Refill(s), Pharmacy: [facility] #[facility] Start Date: 06/05/22 Status: Ordered ZyrTEC [...] [Reference Range]: 1 Blood Pressure [90-140/60-90 mmHg] 100/6 6mmHg (08/28/23 2:22 PM) Mean Arterial Pressure, Cuff [65-140 mmH g] 77 mmHg (08/28/23 2:22 PM) Weight 66.0 kg (08/28/23 2:22 PM) Weight Measured (lbs) 145.505 lb (08/28/23 2:22 PM) Weight Dosing 66.000 kg (08/28/23 2:22 PM) Social History Social History Type Response Smoking Status Smoking tobacco use: Never tobacco user;Never entered on: 08/28/23 Sex Female Physician Outpatient Note * Khloe Khoury, SENIOR FRONT END WEB DEVELOPER: PERFORM Event Display: Office Clinic Note Physician Authored Date: [id number] SAMIRA COLMENARES :1975 Age:48 years Sex:Female Visit Date:08/28/2023 Primary Care Physician: José Luis Cornejo Chief Complaint WWE. Last pap: 03/10/2021 neg, neg. Hx of HR HPV in 2017, 2018). Last mammo: 07/21/22 Right breast cat 3, flu in 6 months; 02/01/23: Right breast Cat C, BI- RADS Cat 1 negative. History of Present Illness Samira??presents today for a WWE. She doesn't have any particular concerns. She is due for a MG and would like the order sent to [facility]. ?? RECRUITMENT COORDINATOR History:?? When reviewing the menstrual history:??She states her cycles are fairly consistent in timing, flow and duration. Every 21-28 days-alexis. She experiences cramping into her thighs.?? Her pap smear history is??remarkable for an abnormal that was normal in followup..?? Last Pap??02/2021??Neg/Neg HPV ? 12/2019 Neg/Neg HPV ? 08/2018 neg/neg HPV ?06/28/2017 neg/+HPV non16/18.?? Vaginal discharge??is minimal..?? Her calcium intake??is adequate..?? Her breast health is??relatively unremarkable..?? Her last mammogram??was 02/01/23, she required additional images 6 months apart. Pain with intercourse??is absent..?? When discussing exercise she says she hopes to do more. Review of Systems GENERAL??Overall she feels well..CARDIAC No recent palpitations, chest pains, or other heart related complaints.. RESPIRATORY??No recent changes with her breathing.. /RECRUITMENT COORDINATOR??Aside from those issues noted above, the patient doesn't have any other complaints.. GASTROINTESTINAL??Her bowel habits are unchanged over the past 6 months.. MUSCULOSKELETAL??There are no recent problems with weakness or pain.. NEUROLOGIC??No recent neurologic issues.. ENDOCRINOLOGIC??Hypothyroidism.. HEMATOLOGIC??She has no known bleeding or clotting disorders..?? Physical Exam Vitals & Measurements BP:??100/66?? WT:??66.0??kg?? [facility] General Physical Exam:?? GENERAL??Healthy woman appearing her age,??No apparent distress,??Reasonable historian.?? HEENT??PERRL.?? RESPIRATORY??Clear to auscultation bilaterally..?? CARDIAC??Regular rate and rhythm.,??No murmur or rub..?? MUSCULOSKELETAL??Grossly normal strength bilaterally..?? DERMATOLOGIC??Grossly normal exam..?? NEUROLOGIC??No focal or gross weakness.,??Strength is symmetric bilaterally..?? BREAST EXAM??Nipples bilaterally appear normal. No worrisome masses or nipple discharge. Bilateral axillas are free of any worrisome lymphadenopathy..?? [facility] Pelvic Exam:?? EXTERNAL GENITALIA??Labia majora and minora bilaterally are normal in appearance-Introitus is normal in external appearance. She has some subtle agglutination over the clitoral ordonez-which seems to beitchy occasionally. ?? VAGINA??Healthy rugated mucosa..?? VAGINAL DISCHARGE Minimal white discharge CERVIX??Healthy in appearance. Os stenotic. Pap collected.?? UTERUS??Normal in size and contours,??Uterus is nontender.,??Adnexal areas bilaterally are normal in size and are nontender..?? 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 Maintaining a healthy diet richin Calcium, Vitamin D, and [place] 3s is recommended for overall health. Magnesium is often depleted in women. Taking Magnesium 250 mg daily can be helpful to decrease inflammation, headache prevention, improves cramping, sleep benefits, and help with bowels.?? We discussed Ibuprofen 600 mg every 4 hours prior to cycle for the first 2 days, to help with cramping, flow. Recommended she consider strength training to increase/maintain muscle mass which will also help with weight management and bone health in the perimenopause. We reviewed??perimenopause, associated symptoms. An??evidenced based??resource Dr Danielle Fragoso, is an excellent, evidenced based??resource for women across the lifespan.? We reviewed her menstrual cycles and a normal transition into menopause. It sounds like her cycles are still ovulatory based on the symptoms she describes. If there are worrisome changes over 6 months time, to call for further evaluation. ?? 2.??Breast cancer screening by mammogram??Z12.31 ??Will fax order to [facility]. Ordered: MG Mammo Screening Bilateral, 08/28/23, Routine, Reason: screening, [facility], Transport Mode: Ambulatory, Breast cancer screening by mammogram ?? 3.??Pap smear for cervical cancer screening??Z12.4 Pap smears are not recommended yearly for many women and should be done based on screening recommendations. Many low risk women actually only need a pap every 3 years or every 5 years. This testing is done to look for evidence of precancerous changes involving your cervix or vagina that come as a result of a viral infection from the Human Papilloma Virus. It is still recommended for most women tohave breast and pelvic exams even if they do not need to have a pap smear.? Future Orders MG Mammo Screening Bilateral, 08/28/23, Routine, Reason: screening, [facility], Transport Mode: Ambulatory, Breast cancer screening by mammogram Follow Up Instructions prn, one year Problem List/Past Medical History Ongoing Allergic rhinitis Chronic otitis media Environmental allergy Female infertility associated with anovulation Human papillomavirus deoxyribonucleic acid test positive, high risk on cervical specimen Hypothyroidism Migraine without aura Osteoarthritis of joint of left shoulder region Otalgia of left ear Palpitations Pancreatitis Phonophobia Historical Procedure/Surgical History ???Manipulation of shoulder (05/2019)???Colonoscopy???Endoscopy???Extraction of impacted wisdom tooth Medications citalopram 10 mg oral tablet, 10 mg= 1 tab, Oral, Daily Claritin-D 24 Hour oral tablet, extended release clobetasol 0.05% topical ointment, See Instructions, 1 refills clobetasol 0.05% topical ointment Delta D3 10 mcg (400 intl units) oral tablet Flonase 50 mcg/inh nasal spray, 1 sprays, !-Nasal, every morning hydrocortisone 25 mg rectal suppository levothyroxine 50 mcg (0.05 mg) oral tablet, 1 tab, Oral, Daily ZyrTEC 10 mg oral tablet, 10 mg= 1 tab, Oral, Daily Allergies Seasonal Social History Alcohol Current- Comments: very rarely Electronic Cigarette/Vaping Electronic Cigarette Use: Never. 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 Home/Environment Lives with Spouse. Living situation: Home/Independent. Sexual Sexually active: Yes. Substance Use Never Tobacco Never tobacco user Tobacco Use:. Never Smokeless Tobacco use:. Family History Cancer: Mother. Heart disease: Father. Other: Mother. Brother: History is negative Sister: History is negative Electronically Signed on 08/29/23 06:07 AM Khloe Khoury APRN Patient Care team information Care Team Related Persons Name: KOBE COLMENARES JR Address: [address] [id number] [facility]
--- OUTSIDE RECORDS SUMMARY | 2023-12-19 02:03 | XMS_ITS | Encounter Summary ---
Author Organization [facility] [address] Care Team Providers Care Retort Load Expediter Name Role Phone Winifred Coulter ND Primary Care Provider [phone]- [phone] Encounter Details Date Type Department Care Team (Late st Contact Info) Description 06/08/2022 Telephone [place] [phone] Josee Godwin Social History Tobacco Use Types Packs/Day Years [...] encounter Miscellaneous Notes * Telephone Encounter - Josee Godwin - 06/08/2022 8:22 AM EST Called to schedule EGD Left message documented in this encounter Plan of Treatment Not on file documented as of this encounter Visit Diagnoses Not on filedocumented in this encounter Care Teams Retort Load Expediter Relationship Specialty Start Date End Date Winifred Coulter ND PCP - General Naturopathic Medicine 06/08/22 06/07/23 documented as of this encounter
--- OUTSIDE RECORDS SUMMARY | 2023-12-19 02:04 | XMS_ITS | Encounter Summary ---
Author Organization Formerly [facility] [place] [address] Care Team Providers Care Golf Ball Winder Name Role Phone José Luis Cornejo Primary Care Provider [phone]- [phone] Reason for Visit * Auth/Cert Specialty Diagnoses / Procedures Referred By Contac t Referred To Contact Diagnoses epigastric abdominal pain Procedures PRO UPPER GI ENDOSCOPY, DIAGNOSTIC EGD, UPPER GI ENDOSCOPY Referral ID Status Reason Start Date Expiration Date Visits Re quested Visits Authorized [id number] 1 1 Encounter Details Date Type Department Care Team (Latest Contact Info) Description 11/20/2017 12:16 PM EDT - 11/20/2017 3:36 PM EDT Hospital [place] [address] Elizabeth Barkley MD [facility] [address] Discharge Disposition: Home Social History Tobacco Use [...] EDT Inhaled Oxygen Concentration - - Weight 65.8 kg (145 lb) 11/20/2017 2:00 PM EDT Height - - Body Mass Index 25.28 08/15/2016 8:56 AM EDT documented in this encounter Discharge Instructions * Discharge Instructions* Racquel Porter RN - 11/20/2017 2:32 PM EDT UPPER GI ENDOSCOPY WHAT TO EXPECT AFTER THE PROCEDURE After the test you may feel a little more gassy or bloated than usual, this is normal. ACTIVITY Because of the sedation that you received Your judgement and reaction time are affected ?? Go home and rest quietly for the remainder of the day. You may resume your normal activities tomorrow. ?? Change from one position to the next slowly. You may lose your balance unexpectedly Be careful on stairs, as you may be unsteady on your feet. FOR THE NEXT 24 HRS ?? DO NOT DRIVE OR OPERATE ANY MACHINERY ?? DO NOT DRINK ALCOHOLIC BEVERAGES ?? DO NOT SIGN LEGAL DOCUMENTS ?? If you are a smoker: DO NOT SMOKE WHILE YOU ARE ALONE Diet ?? Start by eating small portions of foods that ordinarily will not upset your stomach. Be gentle with what you choose to start with. ?? Drink plenty of fluids ( unless otherwise told not to) Medications You may have a mild sore throat. Ice chips, popsicles, over the counter throat lozenges or spray may help numb your throat. This procedure should not cause a fever. IV SITE-- slight redness or tenderness is normal, you can use warm compresses if you get concerned.If the tenderness +/or redness increases or foul drainage and a red streak occurs, please contact your PCP immediately. WHEN SHOULD YOU CALL FOR HELP? Call 911 anytime you think that you need emergency care. For example, call if: You passed out (lost consciousness). You cough up blood. You vomit blood or what looks like coffee grounds. You pass maroon or very bloody stools. Call your healthcare provider or seek immediate medical attention if: You have trouble swallowing. You have belly pain. Your stools are black or tarlike or have streaks of blood. You are sick to your stomach or cannot keep fluids down. Watch closely for changes in your health, and be sure to contact your doctor IF Your throat still hurts after a day or two You do not get better as expected. Sunday-Sunday Same Day Endo [phone] 7a-8p Otherwise contact [phone] and ask to speak to the curator medical museum ruby on rails engineer Follow-up care is a lassiter part of your treatment and safety. Be sure to make and go to all appointments, and call your doctor if you are having problems. Instructions have been reviewed and patient expresses understanding documented in this encounter Medications at Time of Discharge Medication Sig Dispensed Refills Start Date End Date ibuprofen (ADVIL;MOTRIN) 200 mg tablet Take 400 mg by mouth daily as needed. 09/05/2023 CALCIUM CARBONATE/VITAMIN D3 (CALCIUM CHEW ORAL) Take by mouth. citalopram (CELEXA) 20 mg tablet Take 10 mg by mouth daily. 03/10/2019 multivitamin (THERAGRAN) tablet Take 1 tablet by mouth daily. 03/10/2019 documented as of this encounter H&P Notes * Elizabeth Barkley MD - 11/20/2017 1:10 PM EDT Gastroenterology and Hepatology Pre-Procedure History and Physical Exam Procedure: EGD: Indication: Dysphagia, dyspepsia PROBLEM LIST Patient Active Problem List Diagnosis Code ??? Pain in joint, shoulder region M25.519 ??? Impingement syndrome of shoulder M75.40 HISTORY OF PRESENT ILLNESS Samira Ascencio is a 42 y.o. who presents for EGD to evaluate dysphagia and dyspepsia (gas, burping). MEDICATIONS No current facility-administered medications on file prior to encounter. Current Outpatient Prescriptions on File Prior to Encounter Medication Sig Dispense Refill ??? ibuprofen (ADVIL;MOTRIN) 200 mg tablet Take 400 mg by mouth daily as needed. ??? CALCIUM CARBONATE/VITAMIN D3 (CALCIUM CHEW ORAL) Take by mouth. ??? citalopram (CELEXA) 20 mg tablet Take 10 mg by mouth daily. ??? multivitamin (THERAGRAN) tablet Take 1 tablet by mouth daily. PHYSICAL EXAM: GEN: Alert, cooperative, pleasant and in NAD HEENT: Airway examined, oropharyngeal clear without lesions Mallampati Score: see anesthesia note Neck: Supple, no lymphadenopathy or masses LUNGS: Clear to auscultation HEART: Regular rate and rhythm, normal S1, S2 ABDOMEN: Normal bowel sounds, soft, non tender, non distended EXT: No clubbing, cyanosis or edenoma NEURO: No focal deficits RECENT LABS No results found for this or any previous visit (from the past 24 hour(s)). ASSESSMENT AND PLAN Samira Ascencio is a 42 y.o. y/o who presents for endoscopy. Risks and benefits of the procedure explained to the patient. We discussed in depth possible risks include reaction to anesthesia, bleeding,infection, perforation, bruising of other organs in the body, and/or other unforseen complication. All of the patients questions were answered. Patient wishes to proceed and consent was signed. Proceed with the planned endoscopic procedure. ASA grade: see anesthesia note Sedation Plan: anesthesia Elizabeth Barkley MD Gastroenterology attending Pager [phone] documented in this encounter Plan of Treatment Not on file documented as of this encounter Procedures Procedure Name Priority Date/Time Associated Diagnosis Comments SPECIMEN TO PATHOLOGY Routine 11/20/2017 2:37 PM EDT SPECIMEN TO PATHOLOGY Routine 11/20/2017 2:37 PM EDT SPECIMEN TO PATHOLOGY Routine 11/20/2017 2:37 PM EDT SPECIMEN TO PATHOLOGY Routine 11/20/2017 2:37 PM EDT SURGICAL PATHOLOGY REPORT Routine 11/20/2017 2:31 PM EDT UPPER GI ENDOSCOPY Routine 11/20/2017 2: 07 PM EDT EGD, UPPER GI ENDOSCOPY (WRVU 2.09) 11/20/2017 2:06 PM EDT epigastric abdominal pain documented in this encounter Results * Specimen to Pathology (11/20/2017 2:37 PM EDT) AP Specimen 11/20/2017 2:37 PM EDT 11/20/2017 2:37 PM EDT Narrative [facility] - 11/20/2017 2:37 PM EDT Specimen requisition ordered. ??Separate Pathology report to follow Elizabeth Barkley MD PATHOLOGY/[place] [address] * Specimen to Pathology (11/20/2017 2:37 PM EDT) AP Specimen 11/20/2017 2:37 PM EDT 11/20/2017 2:37 PM EDT Narrative [facility] - 11/20/2017 2:37 PM EDT Specimen requisition ordered. ??Separate Pathology report to follow Elizabeth Barkley MD PATHOLOGY/CYTOLOG Y ORDERABLES Performing Organization Address [facility]/[place] [address] * Specimen to Pathology (11/20/2017 2:37 PM EDT) AP Specimen 11/20/2017 2:37 PM EDT 11/20/2017 2:37 PM EDT Narrative [facility] - 11/20/2017 2:37 PM EDT Specimen requisition ordered. ??Separate Pathology report to follow Elizabeth Barkley MD PATHOLOGY/CYTOLOG Y ORDERABLES Performing Organization Address City/[facility]/[place] [address] * Specimen to Pathology (11/20/2017 2:37 PM EDT) AP Specimen 11/20/2017 2:37 PM EDT 11/20/2017 2:37 PM EDT Narrative [facility] - 11/20/2017 2:37 PM EDT Specimen requisition ordered. ??Separate Pathology report to follow Elizabeth Barkley MD PATHOLOGY/CYTOLOG Y ORDERABLES [place] [address] * Surgical Pathology Report (11/20/2017 2:31 PM EDT) Pathologist [facility] Final Diagnosis [id number] ? Location: 4T; EA06; A The signing pathologist has (i) examined the relevant preparation(s) for the specimen(s) and (ii) rendered or confirmed the diagnosis(es). . ?Surgical Pathology DIAGNOSIS A - Mid esophagus, ??biopsy: - Squamous mucosa negative for diagnostic abnormality. B - Distal esophagus, ?? biopsy: - Squamocolumnar junctional mucosa (cardia type) with mild chronic inflammation. There is no evidence of intestinal metaplasia. - Squamous mucosa negative for diagnostic abnormality. c - Antrum and body, ?? biopsy: - Antrum-type mucosa with mild reactive gastropathy. - Body/fundic-type mucosa, negative for diagnostic abnormality. D - Duodenum, ??biopsy: - ??Duodenal mucosa, negative for diagnostic abnormality ??. Electronically signed by: ??Jonathan Perez MD Verified: ??11/22/2017 ?Pathologist Performed at: ??-[facility] [place] Dept. of Pathology, [place], [place] CLINICAL INFORMATION Specimen Submitted: A - Mid esophagus B - Distal esophagus C - Gastric antrum and body D - Duodenum Clinical History and Diagnosis: 42-year-old with dysphagia and dyspepsia SPECIMEN PROCESSING A - Labeled/Fixative: Mid esophagus, formalin. Quantity/Size: Two, averaging 0.3 cm. Tissue Description: ??Soft, zuleta-white tissue ??. Sections/Processi ng: (T1) B - Labeled/Fixative: Distal esophagus, formalin. Quantity/Size: Two, 0.3 cm. Tissue Description: ??Soft, yellow-leyva tissue ??. Sections/Processi ng: (T1) C - Labeled/Fixative: Gastric antrum and body, formalin. Quantity/Size: Four, 0.2-0.4 cm. Tissue Description: ??Soft, yellow-leyva tissue ??. Sections/Processi ng: (T1) D - ??Labeled/Fixativ e: Duodenum, formalin. Quantity/Size: Four, 0.1-0.3 cm. Tissue Description: ??Soft, yellow-leyva tissue ??. Sections/Processi ng: (T1) ??ejr 11/22/2017 3:01 PM EDT [facility] GI Biopsy 11/20/2017 2:31 PM EDT 11/20/2017 2:31 PM EDT GI Biopsy 11/20/2017 2:31 PM EDT 11/20/2017 2:31 PM EDT GI Biopsy 11/20/2017 2:31 PM EDT 11/20/2017 2:31 PM EDT GI Biopsy 11/20/2017 2:31 PM EDT 11/20/2017 2:31 PM EDT Elizabeth Barkley MD PATHOLOGY/CYTOLOG Y ORDERABLES [facility] [place] [address] * UPPER GI ENDOSCOPY (11/20/2017 2:07 PM EDT) UPPER GI ENDOSCOPY [facility] Endoscopy ___ Procedure Date: 11/20/2017 2:07 PM ? Patient Name: Samira Ascencio ? N: [id number] ? Date of : 1975 ? Age: 42 ? Order #: [id number] ? Instrument Name: [id number] ? ___ Procedure: ? Upper GI endoscopy Indications: ? Functional Dyspepsia, Dysphagia Providers: ? Elizabeth Barkley MD, Gil Swan, ? RN Referring MD: ?CEM Bell Medicines: ? Propofol per Anesthesia Complications: ? No immediate complications. ___ Procedure: ? The procedure, indications, benefits, ? risks and alternatives were explained ? to the patient. Specifically ? discussed were potential ? complications including, but not ? limited to, bleeding, perforation, ? infection, missing a cancer, and ? adverse medication reactions. The ? Endoscope was introduced through the ? mouth, and advanced to the second ? part of duodenum. The patient ? tolerated the procedure well. The ? upper GI endoscopy was accomplished ? without difficulty. The patient ? tolerated the procedure well. ? Findings: ? A widely patent Schatzki ring (acquired) was found at ? the gastroesophageal junction at 34 cm from the ? incisors. ? The remainder of the examined esophagus was normal. ? Biopsies were taken with a cold forceps for histology ? from the mid and distal esophagus. ? The entire examined stomach was normal. Biopsies were ? taken with a cold forceps for histology. ? The examined duodenum was normal. Biopsies were taken ? with a cold forceps for histology. ? Moderate Sedation: ? Not applicable - See Anesthesia documentation Impression: ?- Widely patent Schatzki ring. ? - Normal esophagus. Biopsied to ? evaluate for eosinophilic esophagitis. ? - Normal stomach. Biopsied for H ? pylori. ? - Normal examined duodenum. Biopsied. Recommendation: ?- Await pathology results. ? - If dysphagia worsens, consider high ? resolution esophageal manometry. ? - Discharge home ambulatory. ? Attending Participation: ? I personally performed the entire procedure. ? __ Elizabeth Barkley MD 11/20/2017 2:24:14 PM Number of Addenda: 0 Note Initiated On: 11/20/2017 2:07 PM PROVATION 11/20/2017 2:07 PM EDT Unknown GENERAL SURGICAL ORD ERABLES PROVATION documented in this encounter Visit Diagnoses Not on filedocumented in this encounter Care Teams Golf Ball Winder Relationship Specialty Start Date End Date José Luis Cornejo PA [address] [place] [address] PCP - General Family Medicine 05/29/16 12/30/19 documented as of this encounter
--- OUTSIDE RECORDS SUMMARY | 2023-12-19 02:04 | XMS_ITS | Encounter Summary ---
Author Organization Formerly [facility] Address [facility] [place] [address] Care Team Providers Care Collar Cutter Name Role Phone José Luis Cornejo Primary Care Provider +1- [phone] Encounter Details Date Type Department Care Team (Late st Contact Info) Description 08/15/2016 9:30 AM EDT - 08/15/2016 10:15 AM EDT Surgery [place] [address] Elizabeth Barkley MD [facility] [place] [address] COLONOSCOPY, DIAGNOSTIC (WRVU 3.26) Social History Tobacco Use Types Packs/Day Years Used Date Smoking Tobacco: Never Alcohol Use Standard Drinks/Week Comments Yes 0 (1 standard drink = 0.6 oz pur e alcohol) occasional Sex and Gender Information Value Date Recorded Sex Assigned at Not on file Gender Identity Not on file Sexual Orientation Not on file documented as of this encounter Last Filed Vital Signs Vital Sign Reading Time Taken Comments Blood Pressure 114/83 08/15/2016 10:15 AM EDT Pulse 89 08/15/2016 10:15 AM EDT Temperature - - Respiratory Rate 17 08/15/2016 10:15 AM EDT Oxygen Saturation 100% 08/15/2016 10:15 AM EDT Inhaled Oxygen Concentration - - Weight 58.5 kg (129 lb) 08/15/2016 8:56 AM EDT Height 161.3 cm (5' 3.5) 08/15/2016 8:56 AM EDT Body Mass Index 22.49 08/15/2016 8:56 AM EDT documented in this encounter Discharge Instructions * Discharge Instructions* Be Garcia RN - 08/15/2016 10:27 AM EDT You may have received medication before and/or during your procedure which effects judgement and reaction time. Do not drive, operate machinery, drink alcoholic beverages, or make important decisions for 24 hours. Be careful on stairs, as you may be unsteady on your feet. You may eat a regular diet as tolerated. Do not smoke if you are alone. IV site -- slight redness or tenderness is normal. You may use a warm compress. If tenderness and redness increases or foul drainage occurs please contact your M.D. Please call [phone] before 5 pm with problems, questions or concerns. After 5pm call [phone] and ask to speak with the calculating machine mechanic photovoltaic installation technician. Discharge instructions reviewed with patient who expresses understanding. * Attachments The following attachments cannot be sent through Care Everywhere. * COLONOSCOPY: POST-OP (KITTITIAN) documented in this encounter Medications at Time [...] H&P Notes * Elizabeth Barkley MD - 08/15/2016 9:40 AM EDT Gastroenterology and Hepatology Pre-Procedure History and Physical Exam Procedure: EGD: and colonoscopy Indication: LUQ pain, bloating, gas, hematochezia PROBLEM LIST Patient Active Problem List Diagnosis Code ??? Pain in joint, shoulder region M25.519 ??? Impingement syndrome of shoulder M75.40 HISTORY OF PRESENT ILLNESS Samira Snider is a 41 y.o. who presents for EGD and colonoscopy. She has had decades of post-prandial gas, bloating and abdominal discomfort. Also frequent burping. She has seen bright red blood per rectum, last one month ago and occasional diarrhea. No FH celiac disease or IBD. Serologies have been negative for celiac. MEDICATIONS No current facility-administered medications on file prior to encounter. Current Outpatient Prescriptions on File Prior to Encounter Medication Sig Dispense Refill ??? CALCIUM CARBONATE/VITAMIN D3 (CALCIUM CHEW ORAL) Take by mouth. ??? citalopram (CELEXA) 20 mg tablet Take 10 mg by mouth daily. ??? multivitamin (THERAGRAN) tablet Take 1 tablet by mouth daily. ??? ibuprofen (ADVIL;MOTRIN) 200 mg tablet Take 400 mg by mouth daily as needed. PHYSICAL EXAM: GEN: Alert, cooperative, pleasant and in NAD HEENT: Airway examined, oropharyngeal clear without lesions Mallampati Score: II (soft palate, uvula, fauces visible) Neck: Supple, no lymphadenopathy or masses LUNGS: Clear to auscultation HEART: Regular rate and rhythm, normal S1, S2 ABDOMEN: Normal bowel sounds, soft, non tender, non distended EXT: No clubbing, cyanosis or edenoma NEURO: No focal deficits RECENT LABS No results found for this or any previous visit (from the past 24 hour(s)). ASSESSMENT AND PLAN Samira Snider is a 41 y.o. y/o who presents for endoscopy. Risks and benefits of the procedure explained to the patient. We discussed in depth possible risks include reaction to anesthesia, bleeding,infection, perforation, bruising of other organs in the body, and/or other unforseen complication. All of the patients questions were answered. Patient wishes to proceed and consent was signed. Proceed with the planned endoscopic procedure. ASA 1 - Normal health patient Sedation Plan: moderate (conscious sedation) Elizabeth Barkley MD Gastroenterology attending Pager [phone] documented in this encounter Plan of Treatment Not on file documented as of this encounter Procedures Procedure Name Priority Date/Time Associated Diagnosis Comments SURGICAL PATHOLOGY REPORT Routine 08/15/2016 10:33 AM EDT SPECIMEN TO PATHOLOGY Routine 08/15/2016 10:33 AM EDT SPECIMEN TO PATHOLOGY Routine 08/15/2016 10:33 AM EDT EGD, UPPER GI ENDOSCOPY (WRVU 2.09) 08/15/2016 9:43 AM EDT sirena blood in stool COLONOSCOPY, DIAGNOSTIC (WRVU 3.26) 08/15/2016 9:43 AM EDT sirena blood in stool COLONOSCOPY Routine 08/15/2016 9:38 AM EDT UPPER GI ENDOSCOPY Routine 08/15/2016 9: 37 AM EDT documented in this encounter Results * Surgical Pathology Report (08/15/2016 10:33 AM EDT) Final Diagnosis [id number] ?Location: ; [facility]; The signing pathologist has (i) examined the relevant preparation(s) for the specimen(s) and (ii) rendered or confirmed the diagnosis(es). . ?Surgical Pathology DIAGNOSIS A - Terminal ileum, ??biopsy: Small intestinal mucosa with prominent lymphoid follicles. B - Colon, random, ??biopsy: Colonic mucosa within normal limits. CR-PX Electronically signed by: ??Adrienne Stafford MD Verified: ??08/18/2016 ?Pathologist CLINICAL INFORMATION Specimen Submitted: A - Terminal ileum B - Random colon Clinical History: 41-year-old female with intermittent diarrhea, hematochezia Clinical Diagnosis: Evaluate for microscopic colitis SPECIMEN PROCESSING A - Labeled/Fixative : Terminal ileum, formalin. Quantity/Size: Four, 0.3-0.5 cm. Tissue Description: ??Soft, yellow-leyva tissue ??. Sections/Process ing: (T1) B - Labeled/Fixative : Random colon, formalin. Quantity/Size: Five, 0.2-0.7 cm. Tissue Description: ??Soft, yellow-leyva tissue ??. Sections/Process ing: (T1) ??ejr 08/18/2016 1:55 PM EDT [facility] GI Biopsy 08/15/2016 10:3 3 AM EDT 08/15/2016 10:33 AM EDT GI Biopsy 08/15/2016 10:3 3 AM EDT 08/15/2016 10:33 AM EDT Elizabeth Barkley MD PATHOLOGY/CYTOLOG Y ORDERABLES Performing Organization Address City/[facility]/[place] [address] * Specimen to Pathology (surgical or derm) (08/15/2016 10:33 AM EDT) AP Specimen 08/15/2016 10:3 3 AM EDT 08/15/2016 10:33 AM EDT Narrative [facility] - 08/15/2016 10:33 AM EDT Specimen requisition ordered. ??Separate Pathology report to follow Elizabeth Barkley MD PATHOLOGY/CYTOLOG Y ORDERABLES Performing Organization Address [facility] [place] [place] [address] * Specimen to Pathology (surgical or derm) (08/15/2016 10:33 AM EDT) AP Specimen 08/15/2016 10:3 3 AM EDT 08/15/2016 10:33 AM EDT Narrative [facility] - 08/15/2016 10:33 AM EDT Specimen requisition ordered. ??Separate Pathology report to follow Elizabeth Barkley MD PATHOLOGY/CYTOLOG Y ORDERABLES Performing Organization Address [facility] [place] [place] [address] * COLONOSCOPY (08/15/2016 9:38 AM EDT) COLONOSCOPY [facility] Endoscopy ___ Procedure Date: 08/15/2016 9:38 AM ? Patient Name: Samira Snider ? Date of : 1975 ? Age: 41 ? Order #: [id number] ? Instrument Name: [id number] ? ___ Procedure: ? Colonoscopy Indications: ? Hematochezia, Diarrhea (intermittent) Providers: ? Elizabeth Barkley MD, Seble Forbes, ? RN, Bianca Rubi, Rn Integrity Referring MD: ?CEM Bell Medicines: ? An [...] preparation was evaluated using ? the BBPS ([place] Bowel Preparation ? Scale) with scores of: [...] EDT Unknown GENERAL SURGICAL ORD ERABLES PROVATION * UPPER GI ENDOSCOPY (08/15/2016 9:37 AM EDT) [facility] UPPER GI ENDOSCOPY [facility] Procedure Date: 08/15/2016 9:37 AM ? Patient Name: Samira Snider ? [facility]: [id number] ? Date of : 1975 ? Age: 41 ? Order #: [id number] ? Instrument Name: [id number] ? Procedure: ? Upper GI endoscopy Indications: ? Epigastric abdominal pain, ? post-prandial abdominal bloating and ? gas Providers: ? Elizabeth Barkley MD, Seble Forbes, ? RN, Bianca Rubi, Rn Integrity Referring : ?CEM Bell Medicines: ? Midazolam 4 mg IV, Fentanyl 200 ? micrograms IV, Diphenhydramine 25 mg ? IV Complications: ? No immediate complications. Procedure: ? The procedure, indications, benefits, ? risks and alternatives were explained ? to the patient. Specifically ? discussed were potential ? complications including, but not ? limited to, bleeding, perforation, ? infection, missing a cancer, and ? adverse medication reactions. The ? Endoscope was introduced through the ? mouth, with the intention of ? advancing to the small intestine. The ? scope was advanced to the ? cricopharyngeal esophagus before the ? procedure was aborted due to ? excessive patient anxiety and ? inability to cooperate. Medications ? were given. The upper GI endoscopy ? was accomplished without difficulty. ? Findings: ? Procedure aborted. ? Impression: ?Procedure aborted. Recommendation: ?- Repeat EGD with anesthesia provided ? deep sedation. ? Attending Participation: ? I personally performed the entire procedure. I was ? present during the intraservice time as documented by ? the sedation RN. ? ___ Elizabeth Barkley MD 08/15/2016 10:00:01 AM Number of Addenda: 0 Note Initiated On: 08/15/2016 9:37 AM PROVATION 08/15/2016 9:37 AM EDT Unknown GENERAL SURGICAL ORD ERABLES Performing Organization Address City/State/[facility] Co de Phone Number PROVATION documented in this encounter Visit Diagnoses Not on filedocumented in this encounter Administered Medications Inactive Administered Medications - up to 3 most recent administrations Medication Order MAR Action Action Date Dose Rate Site diphenhydrAMINE (BENADRYL) injection ONCE PRN, Starting on Sun08/15/16 at 0944, Until Sun08/15/16 at 1328, Intra-Operative (Intra-Procedure), Routine Given 08/15/2016 9:47 AM EDT 25 mg Right Arm Given 08/15/2016 9:44 AM EDT 25 mg Ri ght Arm fentaNYL 50 mcg/mL multi-dose injection ONCE PRN, Starting on Sun08/15/16 at 0944, Until Sun08/15/16 at 1328, Intra-Operative (Intra-Procedure), Routine Given 08/15/2016 10:00 AM EDT 50 mcg Righ t Arm Given 08/15/2016 9:54 AM EDT 50 mcg Ri ght Arm Given 08/15/2016 9:52 AM EDT 50 mcg Ri ght Arm midazolam (PF) (VERSED) 1 mg/mL multi-dose injection ONCE PRN, Starting on Sun08/15/16 at 0944, Until Sun08/15/16 at 1328, Intra-Operative (Intra-Procedure), Routine Given 08/15/2016 10:00 AM EDT 1 mg Given 08/15/2016 9:54 AM EDT 1 mg Given 08/15/2016 9:52 AM EDT 1 mg documented in this encounter Active and Recently Administered Medications Times are shown in EDT. PRN Medication Order 08/13/2016 08/14/2016 08/15/2016 diphenhydrAMINE (BENADRYL) injection (CANCELED) ONCE PRN, Starting on Sun08/15/16 at 0944, Until Sun08/15/16 at 1328, Intra-Operative (Intra-Procedure), Routine 0944 (Given - Provid er: Seble Forbes RN)0947 (Given - Provider: Seble Forbes RN) fentaNYL 50 mcg/mL multi-dose injection (CANCELED) ONCE PRN, Starting on Sun08/15/16 at 0944, Until Sun08/15/16 at 1328, Intra-Operative (Intra-Procedure), Routine 0944 (Given - Provid er: Seble Forbes RN)0947 (Given - Provider: Seble Forbes RN)0952 (Given - Provider: Seble Forbes RN)0954 (Given - Provider: Seble Forbes RN)1000 (Given - Provider: Seble Forbes RN - Comment: colo sedation) midazolam (PF) (VERSED) 1 mg/mL multi-dose injection (CANCELED) ONCE PRN, Starting on Sun08/15/16 at 0944, Until Sun08/15/16 at 1328, Intra-Operative (Intra-Procedure), Routine 0944 (Given - Provid er: Seble Forbes RN)0947 (Given - Provider: Seble Forbes RN)0952 (Given - Provider: Seble Forbes RN)0954 (Given - Provider: Seble Forbes RN)1000 (Given - Provider: Seble Forbes RN - Comment: colo sedation) documented in this encounter Care Teams Collar Cutter Relationship Specialty Start Date End Date José Luis Cornejo PA [address] [place] [address] PCP - General Family Medicine 05/29/16 12/30/19 documented as of this encounter
--- OUTSIDE RECORDS SUMMARY | 2023-12-19 02:04 | XMS_ITS | Encounter Summary ---
Author Organization [facility] Address [facility] [place] [address] Care Team Providers Care Meat Dresser Name Role Phone José Luis Cornejo Primary Care Provider +1- [phone] Reason for Visit * Reason Comments Other still symptomatic bu t a little bit better * Audiology Exam (Routine) - Closed Specialty Diagnoses / Procedures Referred By Emely alvarenga Referred To Contact Audiology Diagnoses Hearing loss, unspecified hearing loss type, unspecified laterality Tila Grande MD [facility] [place] [address] Riri Cole AUD [facility] [place] [address] Referral ID Status Reason Start Date Expiration Date V isits Requested Visits Authorized [id number] Closed Consult, Test & Treat 08/23/2018 08/23/2019 1 1 Encounter Details Date Type Department Care Team (Late st Contact Info) Description 11/18/2018 11:40 AM EDT Office Visit [place] [address] Tila Grande MD [facility] [place] [address] Eustachian tube dysfunction, bilateral; Chronic rhinitis; 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 year old female seen in follow up. She has a longstanding history of chronic ear blockage sensation and crackling in the ear, worse on the right than the left. She also hadmild sinus and nasal congestion symptoms, we started her or azelastine nasal spray and she is here in follow up. She is still symptomatic but notes overall improvement in her symptoms. Nasal and sinus congestion is improved, ear blockage sensation is improved, but still with occasional crackling sounds in her ears. No vertigo or dizziness. No otorrhea. Otherwise doing ok. 10 point Review of Systems was normal except for pertinent positives and negatives included in the History of Present Illness. Past Medical and Surgical History Patient Active Problem List Diagnosis Code ??? Pain in joint, shoulder region M25.519 ??? Impingement syndrome of shoulder M75.40 ??? Eustachian tube dysfunction, bilateral H69.83 ??? Chronic rhinitis J31.0 Current Outpatient Medications on File Prior to Visit Medication Sig Dispense Refill ??? letrozole (FEMARA) 2.5 mg Tablet Take 2.5 mg by mouth daily. ??? sertraline (ZOLOFT) 25 mg Tablet Take 25 mg by mouth daily. ??? levothyroxine (SYNTHROID) [...] DIAGNOSTIC performed by Elizabeth Barkley MD at [facility] ENDOSCOPY ??? PRO UPPER GI ENDOSCOPY, DIAGNOSTIC N/A 08/15/2016 EGD, UPPER GI ENDOSCOPY performed by Elizabeth Barkley MD at [facility] ENDOSCOPY ??? PRO UPPER GI ENDOSCOPY, DIAGNOSTIC N/A 11/20/2017 EGD, UPPER GI ENDOSCOPY performed by Elizabeth Barkley MD at [facility] ENDOSCOPY Family and Social History Family History: No family history on file. Social History: Lives in [place] [address] Social History Socioeconomic History ??? Marital status: [...] file Gets together: Not on file Attends protestant service: Not on file Active member of [...] ear canal are without deformity. Right TM is retracted with retraction pockets over the posterior superior quadrant, no debris noted. Left TM is intact, no retraction pockets or middle ear fluid. Hearing is grossly normal. Nose: External nose is midline without deformity or lesion. Anterior rhinoscopy reveals a septal deviation to the left, healthy mucosa, turbinates normal in size. Oral: There are [...] Extremities: No gross deformities, no peripheral edema. Labs and Imaging I reviewed the following imaging studies: Audiogram was reviewed. On the right, she shows normal to mild high frequency sensorineural hearingloss. There is a conductive overlay at 4000Hz. On the left, normal to mild high frequency sensorineural hearing loss, with a conductive overlay at 2000Hz. Tympanogram on the right was type C, tympanogram on the left type A. ASSESSMENT & RECOMMENDATIONS Samira Ascencio is a 43 y.o. female with chronic rhinitis and eustachian tube dysfunction. She demonstrates retraction pockets on the right TM without evidence of cholesteatoma. Recommendations: 1. We discussed the importance of monitoring her consistently, particularly with the findings of the retraction pockets on the right. We did discuss possible septoplasty and eustachian tuboplasty given the chronicity of her symptoms. For now, though, she will continue with the azelastine and f/u with me in 3 months. 2. We also discussed some of her autophony symptoms. This is consistent with eustachian tube dysfunction, but we did discuss the possibility of superior semicircular canal dehiscence as well. She politely declined a CT of the temporal bone at this time. We will revisit this a bit more in 3 months at her follow up visit. 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
--- OUTSIDE RECORDS SUMMARY | 2023-12-19 02:04 | XMS_ITS | Encounter Summary ---
Author Organization [facility] [place] [address] Care Team Providers Care Etcher Enameling Name Role Phone José Luis Cornejo Primary Care Provider +1- [phone] Reason for Visit * Auth/Cert Specialty Diagnoses / Procedures Referred By Emely t Referred To Contact Diagnoses epigastric abdominal pain Procedures PRO UPPER GI ENDOSCOPY, DIAGNOSTIC EGD, UPPER GI ENDOSCOPY Referral ID Status Reason Start Date Expiration Date Visits Re quested Visits Authorized [id number] 1 1 Encounter Details Date Type Department Care Team (Late st Contact Info) Description 11/20/2017 1:00 PM EDT - 11/20/2017 1:30 PM EDT [place] [address] Elizabeth Barkley MD [facility] [place] [address] EGD, UPPER GI ENDOSCOPY (WRU 2.09) Social History Tobacco Use Types Packs/Day Years Used Date Smoking Tobacco: Never Smokeless Tobacco: Never Alcohol Use Standard Drinks/Week Comments Yes 0 (1 standard drink = 0.6 oz pur e alcohol) occasional Sex and Gender Information Value Date Recorded Sex Assigned at Not on file Gender Identity Not on file Sexual Orientation Not on file documented as of this encounter Discharge Instructions * Discharge Instructions* [...] better as expected. Sunday-Sunday Same Day Endo [phone] 7a-8p Otherwise contact [phone] and ask to speak to the machine hamper maker generation technician Follow-up care is a lassiter part of [...] past 24 hour(s)). ASSESSMENT AND PLAN Samira Pate Sonu is a 42 y.o. y/o who presents [...] anesthesia Elizabeth Barkley MD Gastroenterology attending Pager [phone] documented in this encounter Plan of Treatment [...] PM EDT 11/20/2017 2:37 PM EDT Narrative [facility] - 11/20/2017 2:37 PM EDT Specimen requisition ordered. ??Separate Pathology report to follow Elizabeth Barkley MD PATHOLOGY/CYTOLOG Y ORDERABLES [facility] [place] [address] * Specimen to Pathology (11/20/2017 2:37 PM EDT) AP Specimen 11/20/2017 2:37 PM EDT 11/20/2017 2:37 PM EDT Narrative [facility] - 11/20/2017 2:37 PM EDT Specimen requisition ordered. ??Separate Pathology report to follow Elizabeth Barkley MD PATHOLOGY/CYTOLOG Y ORDERABLES Performing Organization Address [facility] [place] [address] * Specimen to Pathology (11/20/2017 2:37 PM EDT) AP Specimen 11/20/2017 2:37 PM EDT 11/20/2017 2:37 PM EDT Narrative [facility] - 11/20/2017 2:37 PM EDT Specimen requisition ordered. ??Separate Pathology report to follow Elizabeth Barkley MD PATHOLOGY/CYTOLOG Y ORDERABLES Performing Organization Address [facility] [place] [facility] [place] [address] * Specimen to Pathology (11/20/2017 2:37 PM EDT) AP Specimen 11/20/2017 2:37 PM EDT 11/20/2017 2:37 PM EDT Narrative [facility] - 11/20/2017 2:37 PM EDT Specimen requisition ordered. ??Separate Pathology report to follow Elizabeth Barkley MD PATHOLOGY/CYTOLOG Y ORDERABLES Performing Organization Address [facility] [place] [facility] [place] [address] * Surgical Pathology Report (11/20/2017 2:31 PM EDT) Final Diagnosis [id number] ? Location: 4T; EA06; A The signing [...] Perez MD Verified: ??11/22/2017 ?Pathologist Performed at: ??-[facility] Dept. of Pathology, [place], [place] CLINICAL INFORMATION Specimen Submitted: A - [...] ng: (T1) ??ejr 11/22/2017 3:01 PM EDT [facility] GI Biopsy 11/20/2017 2:31 PM EDT 11/20/2017 2:31 PM EDT GI Biopsy 11/20/2017 2:31 PM EDT 11/20/2017 2:31 PM EDT GI Biopsy 11/20/2017 2:31 PM EDT 11/20/2017 2:31 PM EDT GI Biopsy 11/20/2017 2:31 PM EDT 11/20/2017 2:31 PM EDT Elizabeth Barkley MD PATHOLOGY/CYTOLOG Y ORDERABLES Performing Organization Address [facility]/State/ZIP Co de Phone Number [facility] [place] [address] * UPPER GI ENDOSCOPY (11/20/2017 2:07 PM EDT) UPPER GI ENDOSCOPY [facility] Endoscopy ___ Procedure Date: 11/20/2017 2:07 PM ? Patient Name: Samira Ascencio ? N: [id number] ? Date of : 1975 ? Age: 42 ? Order #: [id number] ? Instrument Name: [id number] ? ___ Procedure: ? Upper GI endoscopy Indications: ? Functional Dyspepsia, Dysphagia Providers: ? Elizabeth Barkley MD, Gil Swan, ? RN Referring : ?[facility] Bell Medicines: ? Propofol per Anesthesia [...] on filedocumented in this encounter Care Teams Etcher Enameling Relationship Specialty Start Date End Date José Luis Cornejo PA [address] [place], [place] [address] PCP - General Family Medicine 05/29/16 12/30/19 documented as of this encounter
--- OUTSIDE RECORDS SUMMARY | 2023-12-19 02:04 | XMS_ITS | Encounter Summary ---
[place] [address] Care Team Providers Care Mortar Maker Name Role Phone José Luis Cornejo Primary Care Provider +1- [phone] Encounter Details Date Type Department Care Team (Late st Contact Info) Description 11/04/2018 Telephone Gastroenterology at [place] [id number] Serena Hickey Social History Tobacco Use Types Packs/Day Years [...] Miscellaneous Notes * Telephone Encounter - Serena Hickey - 11/04/2018 11:22 AM EDT BREATH TEST CLINICAL SAFETY CHECKLIST 11/04/2018 Serena Ascencio [address] [facility] [id number] : 1975 REFERRING PROVIDER: Winifred Coulter PRIMARY CARE PROVIDER: CEM Rome PRIMARY SYMPTOM (DIARRHEA, ABDOMINAL PAIN, ETC): other: flatulence SUGAR(S) REQUESTED (lactose, lactulose, glucose, fructose): lactulose If a provider requests lactose or fructose breath testing: Do we have documentation of previous lactulose or glucose breath testing? IF YES: ok to schedule IF NO: The provider must submit an additional request for a lactulose or glucose breath test. DO NOT SCHEDULE either breath test, until this request is submitted. Separate breath test appointments are needed to test multiple sugars. If a patient needs more than one breath test, the breath tests must be scheduled on separate days. QUESTIONS FOR THE PATIENT DIABETIC? n Diabetic patients should speak with their PCP or managing provider at least two weeks before the test to ask what medication or insulin adjustments are needed for testing. Patients fast 12 hours before testing and the test lasts 2-3 hours. DID THE PATIENT HAVE A COLONOSCOPY OR ANTIBIOTICS IN THE LAST 4 WEEKS? No to both If yes, the breath test must be scheduled at least four weeks after colonoscopy or last antibiotic dose. DOES THE PATIENT USE A WHEELCHAIR? n VERBAL PATIENT INSTRUCTIONS The written instructions are very important for the patient to review and contain specific dietary and medication instructions prior to testing. These instructions will give the patient the most accurate test result. The patient should speak with their referring provider or our office if they have any questions. APPOINTMENT NOTES TEMPLATE lactulose breath test, symptom: other: flatulence, RMD: Matt Coulter, PCP: CEM Rome, wheelchair: No Please copy/paste the template above for each breath test that is needed. documented in this encounter Plan of Treatment Not on file documented as of this encounter Visit Diagnoses Not on filedocumented in this encounter Care Teams Mortar Maker Relationship Specialty Start Date End Date José Luis Cornejo PA [address] [place] [address] PCP - General Family Medicine 05/29/16 12/30/19 documented as of this encounter
--- OUTSIDE RECORDS SUMMARY | 2023-12-19 02:04 | XMS_ITS | Encounter Summary ---
Author Organization [facility] Address [facility] [place] [address] Care Team Providers Care Brown Sourer Name Role Phone José Luis Cornejo Primary Care Provider +1- [phone] Encounter Details Date Type Department Care Team (Latest Contact Info) Description 08/15/2016 8:41 AM EDT - 08/15/2016 11:27 AM EDT Hospital En[place] [address] Elizabeth Barkley MD [facility] [place] [address] Discharge Disposition: Home Social History Tobacco Use [...] Sign Reading Time Taken Comments Blood Pressure 112/72 08/15/2016 10:25 AM EDT Pulse 79 08/15/2016 10:25 AM EDT Temperature - - Respiratory Rate 16 08/15/2016 10:25 AM EDT Oxygen Saturation 100% 08/15/2016 10:15 [...] occurs please contact your M.D. Please call [phone] before 5 pm with problems, questions or concerns. After 5pm call [phone] and ask to speak with the alcohol rubber qualifications examiner. Discharge instructions reviewed with patient who expresses understanding. * Attachments The following attachments cannot be sent through Care Everywhere. * COLONOSCOPY: POST-OP (NAURUAN) documented in this encounter Medications at Time [...] sedation) Elizabeth Barkley MD Gastroenterology attending Pager [phone] documented in this encounter Plan of Treatment [...] Report (08/15/2016 10:33 AM EDT) Final Diagnosis [id number] ?Location: ; [facility]; The signing pathologist has (i) examined [...] ing: (T1) ??ejr 08/18/2016 1:55 PM EDT [facility] GI Biopsy 08/15/2016 10:3 3 AM EDT 08/15/2016 10:33 AM EDT GI Biopsy 08/15/2016 10:3 3 AM EDT 08/15/2016 10:33 AM EDT Elizabeth Barkley MD PATHOLOGY/CYTOLOG Y ORDERABLES Performing Organization Address [facility] [place] [address] * Specimen to Pathology (surgical or derm) (08/15/2016 10:33 AM EDT) AP Specimen 08/15/2016 10:3 3 AM EDT 08/15/2016 10:33 AM EDT Narrative [facility] - 08/15/2016 10:33 AM EDT Specimen requisition ordered. ??Separate Pathology report to follow Elizabeth Barkley MD PATHOLOGY/CYTOLOG Y ORDERABLES Performing Organization Address [facility] [place] [address] * Specimen to Pathology (surgical or derm) (08/15/2016 10:33 AM EDT) AP Specimen 08/15/2016 10:3 3 AM EDT 08/15/2016 10:33 AM EDT Narrative [facility] - 08/15/2016 10:33 AM EDT Specimen requisition ordered. ??Separate Pathology report to follow Elizabeth Barkley MD PATHOLOGY/CYTOLOG Y ORDERABLES Performing Organization Address [facility] [place] [address] * COLONOSCOPY (08/15/2016 9:38 AM EDT) COLONOSCOPY [facility] ___ Procedure Date: 08/15/2016 9:38 AM ? Patient Name: Samira Snider ? Date of : 1975 ? Age: 41 ? Order #: [id number] ? Instrument Name: [id number] ? ___ Procedure: ? Colonoscopy Indications: ? Hematochezia, Diarrhea (intermittent) Providers: ? Elizabeth Barkley MD, Seble Forbes, ? RN, Bianca Rubi, Radio Operator Referring : ?CEM Bell Medicines: ? An additional versed [...] preparation was evaluated using ? the BBPS ([place]bank Bowel Preparation ? Scale) with scores of: [...] UPPER GI ENDOSCOPY (08/15/2016 9:37 AM EDT) Pathologist [facility] UPPER GI ENDOSCOPY [facility] Endoscopy Procedure Date: 08/15/2016 9:37 AM ? Patient Name: Samira Snider ? [facility]: [id number] ? Date of : 1975 ? Age: 41 ? Order #: [id number] ? Instrument Name: [id number] ? Procedure: ? Upper GI endoscopy Indications: ? Epigastric abdominal pain, ? post-prandial abdominal bloating and ? gas Providers: ? Elizabeth Barkley MD, Seble Forbes, ? RN, Bianca Rubi, Radio Operator Referring MD: ?CEM Bell Medicines: ? Midazolam 4 mg [...] GENERAL SURGICAL ORD ERABLES Performing Organization Address City/State/[facility] Co de Phone Number [employer] documented in this encounter Visit Diagnoses Not on filedocumented in this encounter Active and Recently Administered Medications Times are shown in EDT. PRN Medication Order 08/13/2016 08/14/2016 08/15/2016 diphenhydrAMINE (BENADRYL) injection (CANCELED) ONCE PRN, Starting on 08/15/16 at 0944, Until Tu08/15/16 at 1328, Intra-Operative (Intra-Procedure), Routine 0944 (Given - Provid er: Seble Forbes RN)0947 (Given - Provider: Seble Forbes RN) fentaNYL 50 mcg/mL multi-dose injection (CANCELED) ONCE PRN, Starting on 08/15/16 at 0944, Until 08/15/16 at 1328, Intra-Operative (Intra-Procedure), Routine 0944 (Given [...] sedation) documented in this encounter Care Teams Brown Sourer Relationship Specialty Start Date End Date José Luis Cornejo PA [address] [place] [address] PCP - General Family Medicine 05/29/16 12/30/19 documented as of this encounter
--- OUTSIDE RECORDS SUMMARY | 2023-12-19 02:04 | XMS_ITS | Encounter Summary ---
Author Organization [facility], [facility] [place] [address] Care Team Providers Care Call Center Professional Name Role Phone José Luis Cornejo Primary Care Provider +1- [phone] Reason for Visit * Reason Onset Date Comments Appointment 08/21/2018 Encounter Details Date Type Department Care Team (Late st Contact Info) Description 08/21/2018 Telephone [place] [id number] Salvatore Vela Appointment Social History Tobacco Use Types Packs/Day Years [...] encounter Miscellaneous Notes * Telephone Encounter - Salvatore Vela - 08/21/2018 9:53 AM EDT Caller and relationship to patient (if other than patient): Samira Ascencio Best time to reach caller: any Message or Reason for Call: Samira Ascencio will be here today at 3:[address] Grande Appt Needed and Reason: referral Provider: Christiane documented in this encounter Plan of Treatment Not on file documented as of this encounter Visit Diagnoses Not on filedocumented in this encounter Care Teams Call Center Professional Relationship Specialty Start Date End Date José Luis Cornejo PA [address] [place] [address] PCP - General Family Medicine 05/29/16 12/30/19 documented as of this encounter
--- OUTSIDE RECORDS SUMMARY | 2023-12-19 02:04 | XMS_ITS | Data Portability ---
Author Organization [place] - [facility], MAIN OFFICE Address [address] [place] [address] Assessment Encounter Date Assessment Date Assessment LastModified by Organization Details LastModified Time 01/26/2022 01/26/2022 pt rto for fu on SCD diet and she reports she isnt doing a whole lot better in some areas and improvement in others- she cant get out of ohase 2 - we discussed sysmptom- she didnt do a diet log- her stools are more constipated even on sibo mmc and zyme, and biotic- i spent 45 minutes with pt in fac eot face consult as described in notes and per instructions below and handouts Not available 01/28/2022 15:27:09 03/02/2022 03/02/2022 pt rto need assistance woith diet- bowel are sluggish but gas nad bloat are better and diffculty adhereing to SIBO diet- ear fullness continues to persist worse when eating dairy- reviewed recipes, websites that assist with SCd diet Telemedicine has been described to the patient. Patient has been informed of the anticipated benefits and possible risks. Patient understands the information provided regarding telemedicine, has had the opportunity to ask questions about this information, and all questions have been answered to patients satisfaction. Patient consents for the use of telemedicine in his/her medical care and authorizes the transmission of any relevant medical information to providers and their staff involved in patients medical or mental health care. Verbal consent obtained by myself or auxiliary staff: yes. This patient PTO for a consented visit of 45 minutes duration and 100% was spent in face to face consultation with the patient . Not available 03/03/2022 20:17:14 04/25/2022 04/25/2022 carotic calcium score was normal- she continues to have sinus congestion and eNT dosctir helped improve recently- we also discussed past iron deficiney and orders are below This patient PTO for a consented telemedicine visit of 25 minutes duration and 100% was spent in face to face consultation with the patient and/or coordination of care. Supplementation, Diet, and calcium score results were discussed and/or outlined below. Lab orders recommended below for routine follow-up. Follow-up recommended below or sooner if any new concerns arise. Not available 05/25/2022 19:27:33 06/06/2022 06/06/2022 pt pto today for fu- i spent 60 minutes face to face with pt reviewing sibo diet and renewing a suggested lab order for this year/- she especially wants to review iron bc she hasnt been taking ferrasorb- for several months- plan below- 45 minutes of our time was spent in recipe and diet recommendations on sibo diet- I have also revisited Tan's esophagus from when she was first referred in 2018- and suggested another Endoscopy to compare- since she continues to have reflux- although imrpoves when sticking to sibo diet- pt also had billing discpencies- looking into with [facility] payments vs what was truly owed by patient and what was collected in office- will have bookkepper help on this- as it seems confusion Not available 06/25/2022 00:20:29 Plan of Treatment Reminders Order Date Submit Date Provider Last Modified By Organization Details Last Modified Time Details Appointments None recorde dMaricarmen Lab lipid panel, serum 2021 022 [facility] (Registration), [address] [place] [address] [place], [address], 3 05:01:23 iron + TIBC + ferriti n, serum 2021 022 [facility] (Registration), [address] [place] [address] [place], [address], 3 05:01:23 CBC 2021 022 [facility] (Registration), [address] [place] [address] [place], [address], 3 05:01:23 magnesi um, RBC 2022 023 [facility] (Registration), [address] [place] [address] [place], [address], 3 05:01:26 lipid panel, serum 2022 023 [facility] (Registration), [address] [place] [address] [place], [address], 3 05:01:26 apolipo protein B/apoli poprote in A1 ratio 2022 023 [facility] (Registration), [address] [place] [address] [place], [address], 3 05:01:26 iron + TIBC + ferriti n, serum 2022 023 [facility] (Registration), [address] [place] [address] [place], [address], 3 05:01:26 CBC w/ diff 2022 023 [facility] (Registration), [address] [place] [address] [place], [address], 3 05:01:26 phospho lizy, serum or plasma 2022 023 [facility] (Registration), [address] [place] [address] [place], [address], 3 05:01:26 Referral EGD referra l - Please- re-eval uate PT Tan s Esophag us and compare imaging [id number] workup 2022 023 [facility] - Endoscopy (Egd), [address] [place], [address], 3 05:01:38 Procedures None recorde d. Surgeries None recorde d. Imaging CT, coronar y calcium score 2021 022 [facility], Radiology Dexa Scan / Bone Density, [place], [address], 3 05:00:55 Medication Orders None recorde d. Patient TargetsNo targets recorded. Patient Instructions Encounter Date Encounter Id Patient Instructions Last Modified By Organization Details Last Modified Time 01/26/2022 [id number] constipation: ca re instructions [email or web address] Not available 01/28/2022 15:27:08 gastroesophageal reflux disease (GERD): care instructions kknight Not available 01/28/2022 15:27:08 1. histamine blo ck to son ewith high histamine rich foods and leftover foods that are allowed on sibo diet- 2. sibiotic 1 cap 2xday with food- aloe drink 2xday 1st thing in AM and last thing in PM 3. apple cider vinegar 1tsp-tbsp in dilutes apple juice 12oz before meals 4. CAlcium- score test [facility]- track down latest lipid panel done at [facility]- or we will get at [facility] so we can access results more easily- handout for histamine rich foods given keep a stool log for next visit- stay in phase 2 until gas and bloat and constipation are corrected- night Not available 01/28/2022 15:08:32 03/02/2022 [id number] tinnitus: care instructions Not available 03/03/2022 20:17:57 1. get lipid res ults from [facility] lab 2. Bp results at home/school email those to me- maybe 3 days of reading in arow 3. CT coronary calcium score- [facility] pay for it- doesnt get covered through insurance 4. explore more scd recipes and start eating- WET SOCK TREATMENT (aka Warming Socks) After nightly bath or shower prepare in advance socks, wrung out after run under cold water. Check that the feet feel warm after bathing. Then place socks on and cover with Dry Wool Socks. Go to bed. You will awake with them dry. This treatment will assist lymphatic drainage while sending the blood to the feet to warm the socks as well as helping you breathe while sleeping. kk Not available 03/03/2022 20:11:29 04/25/2022 [id number] high cholesterol : care instructions Not available 05/25/2022 19:27:43 iron deficiency anemia: care instructions Not available 05/25/2022 19:27:43 1. get bloodwork to determine of need iron supps still- to be discussed at next visit 2. continue with SIBO diet and recipes and SIbo supps Not available 05/25/2022 19:27:41 06/06/2022 [id number] tan's esopha tiffanie: care instructions Not available 06/06/2022 16:16:39 high cholesterol : care instructions Not available 06/06/2022 16:16:39 1- 1-2 weeks on sibo rebuild and then try 1 cap of sibiotic again- labs above- sent to [facility] this time and referral to [facility] for endoscopy/Tan's esophagus dx Continue on SIBO diet- call if need assistance with recipes etc Not available 07/08/2022 18:47:35 Reason for Referral ENT Referral for On examinat ion - fluid -middle ear Referring Physician: [facility], Encounter Date: 08/15/2018 EGD Referral for Tan's e sophagus Please- re-evaluate PT BArretts Esophagus and compare imaging [id number] workup Referring Physician: [facility], Encounter Date: 06/06/2022 Problems Name Status Onset Date Resolution Date Notes Provider Name and Address Organization Details Recorded Time Migraine without aura Active 018 Winifred Coulter ND [address] [place] [address], [address] , [facility] 01/31/2018 14:43:50 Pruritic disorder Active 018 Winifred Coulter ND [address] [place] [address], [address] , [facility] 03/13/2018 16:30:52 Dietary management surveillance Active 018 Winifred Knights, [address], [address] , [place] [facility] 03/15/2018 10:35:22 Abdominal pain Active 018 Winifred Coulter, [address], [address] , [place] - [facility] 03/16/2018 07:25:13 Flatulence, eructation and gas pain Active 018 Winifred Coulter, [address], [address] , [place] - [facility] 03/16/2018 07:25:26 Chronic constipation Active 019 Winifred Coulter, [address], [address] , [facility] - [facility] 05/27/2018 09:10:52 Otalgia Active 019 Winifred Coulter, [address], [address] , [facility] - [facility] 05/27/2018 09:21:53 Small bowel bacterial overgrowth syndrome Active 019 Winifred Coulter, [address], [address] , [facility] - [facility] 03/12/2019 09:50:21 Hemorrhoids Active 020 Winifred Coulter, [address], [address] , [place] - [facility] 06/17/2019 21:05:03 Hyperlipidemia Active 022 Winifred Coulter, [address], [address] , [place] - [facility] 11/02/2021 12:05:54 Gastroesophageal reflux disease Active 022 Winifred Coulter, [address], [address] , [place] - [facility] 11/02/2021 12:38:25 Bilateral earache Active 022 Winifred Coulter, [address], [address] , [place] - [facility] 11/08/2021 00:04:27 Idiopathic stabbing headache Active 022 Winifred Coulter, MD [address] [facility], [place], [address] , [place] [facility] 12/13/2021 11:24:20 Candidiasis Active 022 Winifred Coulter, ND [address] [facility], [place], [address] , [place] [facility] 12/13/2021 11:40:18 Otalgia of right ear Active 022 Winifred Coulter, MD [address] [place], [address] , [place] [facility] 12/27/2021 19:03:50 Constipation Active 022 Winifred Coulter, [address], [address] , [place] - [facility] 01/28/2022 15:02:08 Tinnitus Active 022 Winifred Coulter, [address], [address] , [place] - [facility] 03/03/2022 19:52:51 Iron deficiency anemia Active 022 Winifred Coulter, [address], [address] , [place] - [facility] 04/25/2022 16:08:23 Malaise and fatigue Active 023 Wiinfred Coulter, [address], [address] , [place] - [facility] 05/25/2022 19:24:58 Hypomagnesemia Active 023 Winifred Coulter, [address], [address] , [place] - [facility] 06/06/2022 16:11:18 Cramp in foot Active 023 Winifred Coulter, [address], [address] , [place] - [facility] 06/06/2022 16:11:44 Vitamin D deficiency Active 023 Winifred Coulter, [address], [address] , [facility] 06/06/2022 16:12:14 History of Schatzkis ring Active 023 Winifred Coulter, [address], [address] , [facility] 08/03/2022 16:48:24 Problem Notes None recorded. Procedures Surgical History Date Name Laterality Status Provider Name and Address Organization Details Recorded Time 8 Other completed Winifred Coulter, RUFUS [address] [place] [address], [address], [facility] 01/31/2018 14:16:25 8 completed Winifred Coulter [address], [address], [facility] 01/31/2018 14:10:02 7 completed Winifred Coulter [address], [address], [facility] 01/31/2018 14:10:02 7 Colonoscopy completed Winifred Coulter [address], [address], [facility] 01/31/2018 14:16:25 6 Colposcopy completed Winifred Coulter ND [address] [place] [address], [address], [facility] 01/31/2018 14:16:25 0 Colposcopy completed Winifred Coulter [address], [address], [facility] 01/31/2018 14:16:25 Imaging Results None recorded. Procedure Notes None recorded. Medical Equipment None Reported. Medications Name Sig Start Date Stop Date Status Note LastModified by Organization Details LastModified Time Magnesium Buffered Chelate 1 cap 2xday 2018 active Not Available Not Available Not Avai lable GI Fortify Powder up to 1 scoop 2xday 01/07 completed Not Available Not Available Not Available D-Mulsion 1000iu 4 drops/da y 2018 active Not Available Not Available Not Avai lable Tristian Sporebioti cs week 1 : 2capever y other day week 2 every day week three 2 caps/day 2018 active Not Available Not Available Not Avai lable Similase Lipo 1 cap with meals or large snacks- for fat malabsor ption/in digestio n or pancreat ic cancer 10/10 completed Not Available Not Available Not Available cetirizine 10 mg tablet 01/07 completed xytrec Not Available Not Available Not Available azithromyc in 250 mg tablet 11/02 completed Not Available Not Available Not Available citalopram 10 mg tablet TAKE ONE TABLET BY MOUTH EVERY DAY active Not Available Not Available No t Available fluconazol e 200 mg tablet 11/02 completed Not Available Not Available Not Available prednisone 20 mg tablet TAKE ONE TABLET BY MOUTH TWICE A DAY FOR 7 DAYS active Not Available Not Available No t Available amoxicilli n 500 mg tablet 04/04 completed Not Available Not Available Not Available hydrocorti sone acetate 25 mg rectal suppositor y 12/01 completed Not Available Not Available Not Available lorazepam 0.5 mg tablet TAKE ONE TABLET BY MOUTH ONCE NEEDED FOR ANXIETY/ CLAUSTRO PHOBIA 30 MIN PRIOR TO MRI; OK TO TAKE SECOND TABLET AT TIME OF MRI IF STILL ANX active Not Available Not Available No t Available levothyrox ine 50 mcg tablet TAKE ONE TABLET BY MOUTH EVERY DAY active Not Available Not Available No t Available promethazi ne 25 mg tablet 12/01 completed Not Available Not Available Not Available zafirlukas t 20 mg tablet TAKE ONE TABLET BY MOUTH TWICE A DAY; TAKE ON EMPTY STOMACH AT LEAST 1 HOUR BEFORE OR 2 HOURS AFTER A MEAL/KARRIE D active Not Available Not Available No t Available omeprazole 20 mg capsule,de layed release 03/25 completed Not Available Not Available Not Available montelukas t 10 mg tablet 12/01 completed Not Available Not Available Not Available codeine 10 mg-guaifen esin 100 mg/5 mL oral liquid 08/15 completed Not Available Not Available Not Available clobetasol 0.05 % topical ointment APPLY TO VULVA ONCE WEEKLY DIRECTED active Not Available Not Available No t Available azelastine 137 mcg (0.1 %) nasal spray 11/02 completed Not Available Not Available Not Available letrozole 2.5 mg tablet 01/07 completed Not Available Not Available Not Available methylpred nisolone 4 mg tablets in a dose pack 04/04 completed Not Available Not Available Not Available fluticason e propionate 50 mcg/actuat ion nasal spray,susp ension USE 2 SPRAYS IN EACH NOSTRIL ONCE DAILY active Not Available Not Available No t Available oxycodone 5 mg tablet 12/01 completed Not Available Not Available Not Available cyclobenza sheri 5 mg tablet active Not Available Not Available Not Available Xifaxan 550 mg tablet 12/01 completed Not Available Not Available Not Available Vitamins Plus Low Iron 27 mg iron-1 mg tablet active Not Available Not Available Not Available Vitals Date Recorded Body weight Heart rate Provider Name and Address Organization Details Last Updated DateTime 06/06/2022 12378.01 g 66 /min Winifred Coulter, [place] [address] [facility], [place], [address], [facility] 06/06/2022 15:41:14 Social History Question Answer Notes LastModified by Organizat ion Details LastModified Time Tobacco Smoking Status Never Smoker Not Available [employer] 03/16/2020 03:41:47 What Is Your Level Of Alcohol Consumption? Occasional [id number] Information not available 03/16/2020 How Many Years Have You Consumed Alcohol? 23 [id number] Information not available 03/16/2020 Animal Exposure? Yes Informat ion not available 06/06/2022 Are You Blind Or Do You Have Difficulty Seeing? No [id number] Information not available 03/16/2020 What Is Your Level Of Caffeine Consumption? Moderate [id number] Information not available 03/16/2020 How Much Tobacco Do You Chew? None [id number] Information not available 03/16/2020 Are You Currently Employed? Yes [id number] Information not available 03/16/2020 Are You Deaf Or Do You Have Serious Difficulty Hearing? No [id number] Information not available 03/16/2020 What Type Of Diet Are You Following? 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 Yes [id number] Information not available 03/16/2020 Frequent Air Travel No Information not available 06/06/2022 Hard Of Hearing Or Deaf In One Or Both Ears? Yes Not Tested Information not available 06/06/2022 Legally Blind In One Or Both Eyes? No Information not available 06/06/2022 Live Alone Or With Others? With Others Information not available 06/06/2022 Marital Status Informatio n not available 06/06/2022 What Was The Date Of Your Most Recent Tobacco Screening? 05/08/2018 Information not available 06/06/2022 What Is Your Parents' Marital Status? [id number] Information not available 03/16/2020 Do You Use Protection During Sex? No [id number] Information not available 03/16/2020 What Is Your Relationship Status? [id number] Information not available 03/16/2020 Are You Sexually Active? Yes [id number] Information not available 03/16/2020 Number Of Sexual Partners 1 Information not available 06/06/2022 Do You Have Any Siblings? 3 [id number] Information not available 03/16/2020 Are You Passively Exposed To Smoke? No Information not available 01/31/2018 What Types Of Sporting Activities Do You Participate In? Kayaking, Hiking [id number] Information not available 03/16/2020 General Stress Level Medium Information not available 06/06/2022 Supplements Calcium, Pre- Vitamin W/iron Information not available 06/06/2022 How Many Years Have You Smoked Tobacco? 0 [id number] Information not available 03/16/2020 Sex: Female Functional Status Question Answer Note LastModified by Organization D etails LastModified Time Do you have difficulty walking or climbing stairs? No [id number] Information not available 03/16/2020 Do you have difficulty doing errands alone? No [id number] Information not available 03/16/2020 Are you able to care for yourself? Yes [id number] Information n ot available 03/16/2020 Do you have difficulty dressing or bathing? No [id number] Information not available 03/16/2020 What is your exercise level? None [id number] Information not available 03/16/2020 Mental Status Question Answer Note LastModified by Organization D etails LastModified Time Do you have difficulty concentrating, remembering or making decisions? Yes [id number] Information no t available 03/16/2020 Family History Relationship Description Onset Age of this Age Resolved Age Notes Mother Arthritis 55 Mother Migraine 30 Father Arthritis 70 Brother Migraine 45 Sister Migraine 40 Medical History Condition Response Coronary Artery Disease N Other N Gout N Kidney Stones N Blood Diseases N Hyperthyroidism N Breast Cancer N Blood Transfusion N COPD N Depression N Lung Disease N Hypothyroidism Y Defects or Inherited Disease N Developmental or Behavioral Disorders N Breast Problem Y Difficulty Swallowing Y Anesthesia Complications N Meniere's disease N Anxiety Disorder Y Muscle, Joint, or Bone Problems Y Obesity N Vision or Eye Problems Y Arthritis N Polyps N Infertility Y Mental Disorder N Cancer N Varicosities N Stroke N Endometriosis N Bladder or Kidney Problems N High Cholesterol N Liver Disease N Fibromyalgia N Headaches N Kidney Disease N Allergies/Hayfever Y Heart Problems N Sleep problems/insomnia N Ear or Hearing Problems Y Hospitalizations N Thyroid Problems N GI Problems Y ADD/ADHD N Skin Problems Y Eating Disorder N Anemia N MRSA exposure N Constipation Y Mental Illness N Ovarian Cancer N Diabetes N Bedwetting N Seizures/Epilepsy N Tuberculosis N AIDS/HIV N Congestive Heart Failure (CHF) N Eczema Y Diverticulitis N Abuse/Domestic Violence N Asthma N Reflux/GERD N Hepatitis N Heart Disease N Pulmonary Embolism N Pre-Eclampsia N Hypertension N Chronic Ear Infections N Osteoporosis N Chicken Pox Y Autism Spectrum Disorder (ASD) N Thrombophilias N Gynecological History Statement/Question Response 08/15/2016 07/12/2017 Flow Moderate Sexually Active? Y On BCP's at Conception? N STIs/STDs N Sexual Problems? Y Duration of Flow (days) 4 Current Control Method Seeking Pre gnancy Age at Menarche 9 N Obstetrics History GPAL:G 0 P 0 0 0 0 Past Encounters Encounter ID Performer Location Encounter Start Date Encounter Closed Date Diagnosis/Indication Diagnosis SNOMED-CT Code [id number] Winifred Coulter ND MAIN OFFICE [address] [place] [address] 01/31/2018 13:53:58 02/05/2018 04:38:22 Pruritic disorder 872920749 Fatigue 36049743 Migraine without aura 56 490627 Abdominal pain 60880517 Trying to conceive [id number] Winifredlucien Coulter MD MAIN OFFICE [address] [place] [address] 02/21/2018 13:09:35 02/25/2018 05:01:12 Epigastric pain 19323190 High gluco se level in blood 809114717 Vitamin D deficiency 347 [address] [id number] [place] MA[place] OFF[place] [address] [place] [address] 03/13/2018 16:16:36 03/13/2018 17:35:30 Dietary management surveillance 869810442 Flatulence , eructation and gas pain 754288621 Abdominal pain 40348178 [id number] [place] MA[place] OFF[place] [address] [place] [address] 03/25/2018 15:47:14 03/25/2018 18:27:39 Flatulence, eructation and gas pain 953849329 Dietary ma nagement surveillance 404743029 Common cold 43884951 [id number] [place] MAIN OFFICE [address] [place] [address] 03/29/2018 10:58:04 03/29/2018 13:07:41 [id number] [place] MA[place] OFF[place] [address] [place] [address] 05/02/2018 15:20:30 05/02/2018 15:46:21 Otalgia 27581984 [id number] [place] MAIN OFFICE [address] [place] [address] 05/23/2018 15:06:43 05/23/2018 15:51:12 Flatulence, eructation and gas pain 131416082 Abdominal pain 95386821 Chronic constipation 236 395501 Dietary ma nagement surveillance 884874952 Otalgia 52559991 [id number] [place] MAIN OFFICE [address] [place] [address] 06/27/2018 15:01:27 07/03/2018 21:28:30 Flatulence, eructation and gas pain 704578973 Chronic constipation 236 296670 Otalgia 88560530 Dietary ma nagement surveillance 669814712 Pruritic disorder 796599 002 [id number] Winifredlucien Coulter, MD MAIN OFFICE [address] [place] [address] 07/11/2018 08:51:13 07/11/2018 12:24:52 Vitamin D deficiency 36895899 Indigestion 987904356 Fatigue 65684201 Candidiasis [id number] [place] MA[place] OFFICE [address] [place] [address] 08/01/2018 14:07:00 08/01/2018 14:57:12 Flatulence, eructation and gas pain 726805574 On examina tion - fluid -middle ear [id number] [place] MA[place] OFFICE [address] [place] [address] 08/15/2018 15:24:53 08/21/2018 10:16:14 Magnesium deficiency [id number] Vitamin D deficiency 347 70978 Dietary ma nagement surveillance [id number] On examina tion - fluid -middle ear [id number] Bilateral tinnitus 91304 [id number] 5835 [place] MA[place] OFF[place] [address] [place] [address] 09/11/2018 15:06:42 09/11/2018 15:51:41 Epigastric pain 98567253 Nausea 591723792 Dietary ma nagement surveillance [id number] 5915 [place] MA[place] OFF[place] [address] [place] [address] 10/10/2018 15:29:15 10/16/2018 22:48:41 Chronic constipation 112672422 Flatulence , eructation and gas pain 521413847 Dietary ma nagement surveillance 209243052 Pruritic disorder 054154 002 5989 [place] MA[place] [address] [place] [address] 10/31/2018 13:07:14 10/31/2018 14:07:12 Candidiasis 87179187 Flatulence , eructation and gas pain 754014257 6250 [place] MA[place] OFF[place] [address] [place] [address] 01/07/2019 13:42:21 01/10/2019 08:38:20 Small bowel bacterial overgrowth syndrome 740011392 Dietary ma nagement surveillance 675286964 6334 Winifred Coulter MD MAIN OFFICE [address] [place] [address] 02/04/2019 11:42:50 02/04/2019 12:14:57 Small bowel bacterial overgrowth syndrome 528252674 Flatulence , eructation and gas pain 941291125 Dietary ma nagement surveillance 516419672 Chronic constipation 236 429742 0103 [place] MA[place] OFF[place] [address] [place] [address] 03/05/2019 15:34:57 03/05/2019 16:27:44 Chronic constipation 366867522 Poor perip heral circulation 8432822 Small diaz l bacterial overgrowth syndrome 225458986 6487 [place] MA[place] OFF[place] [address] [place] [address] 04/03/2019 15:39:38 04/04/2019 18:38:53 Hypothyroidism 28509642 Small diaz l bacterial overgrowth syndrome 392399507 Pruritic disorder 032675 002 6606 [place] MA[place] OFF[place] [address] [place] [address] 06/02/2019 14:58:12 06/03/2019 12:18:07 Abdominal pain 55463324 Chronic constipation 236 331112 Dietary ma nagement surveillance 297698227 Flatulence , eructation and gas pain 923100422 Hemorrhoids 48940619 7050 Winifred Coulter MD MAIN OFFICE [address] [place] [address] 12/02/2019 15:56:03 12/02/2019 15:56:52 Cramp in foot 149505185 Small diaz l bacterial overgrowth syndrome 341225553 Otalgia 45143237 Flatulence , eructation and gas pain 856936823 Dietary ma nagement surveillance 448351064 7107 Winifred Coulter MD MAIN OFFICE [address] [place] [address] 12/18/2019 09:10:26 12/24/2019 10:18:16 Flatulence, eructation and gas pain 338680821 Dietary ma nagement surveillance 341818415 Small diaz l bacterial overgrowth syndrome 422558928 9171 Winifred Coulter [place] MAIN OFFICE [address] [place] [address] 11/02/2021 11:48:58 11/22/2021 14:47:59 Hyperlipidemia 98144690 Gastroesop hageal reflux disease 994305904 Pruritic disorder 740382 002 Bilateral earache 214618 003 Small diaz l bacterial overgrowth syndrome 661471371 9291 Winifred Coulter MD MAIN OFFICE [address] [place] [address] 12/13/2021 11:05:21 12/28/2021 09:57:26 Idiopathic stabbing headache 149157511 Candidiasis 66893627 Otalgia of right ear 025 9546636 9433 Winifred Coulter MD MAIN OFFICE [address] [place] [address] 01/26/2022 16:02:42 01/28/2022 15:27:57 Gastroesophageal reflux disease 429888420 Small diaz l bacterial overgrowth syndrome 875084131 [facility] 68753165 9514 Winifred Coulter MD MAIN OFFICE [address] [place] [address] 03/02/2022 16:43:35 03/03/2022 20:20:17 Family history of coronary arteriosclerosis 708822016 [facility] 59643038 Small diaz l bacterial overgrowth syndrome 092957989 Dietary ma nagement surveillance 784944344 9670 Winifred Coulter [place] [facility] [address] [place] [address] 04/25/2022 15:54:04 05/25/2022 19:28:12 Iron deficiency anemia 00869974 Hyperlipidemia 71801743 Malaise and fatigue 2717 98747 9804 Winifred Coulter [place] OFFICE [address] [place] [address] 06/06/2022 15:36:43 07/08/2022 18:47:53 Iron deficiency anemia 98629854 Hyperlipidemia 60673415 Hypomagnesemia 945599301 Cramp in foot 262820323 Vitamin D deficiency 347 74463 Tan's esophagus 3029 35834 Health Concerns Section Related Observation LastModified by Organization Detai ls LastModified Time None Recorded Concern Status LastModified by Organization Details LastModified Time None Recorded Advance Directives Directive None Recorded Payers Encounter Date Sequence Insurance Name Policy Number Policy Fernandes Covered Member ID Fernandes Member ID Guarantor Name 01/26/2022 1 [place] [facility] [id number] Samira M Sonu [id number] Samira M Sonu 03/02/2022 1 [place] [facility] [id number] Samira M Sonu [id number] Samira M Sonu 04/25/2022 1 [place] [facility] [id number] Samira M Sonu [id number] Samira M Sonu 06/06/2022 1 [place] [facility] [id number] Samira M Sonu [id number] Samira M Sonu Notes Date Note Type Note Provider Name and Address Organization Details Recorded Time 01/26/2022 text/html HPI Notes: phase 2 cant get off this phase- she had lunch- elftover- ears are better- she had a banana and gas was alot- constipation is back meat when she eats mitchell and takes a long time to go down- beef and turkey were reative on mrt test and they seem to irritate her even tho on scd diet- we reviewed both results and tried to come up with diet plan based on those results- she feels sibiotic gives her intestinal cramps- and urgent stools- this week alot of constipation- not going often - earlier in week hard balls- and she may have drank less water- sibo mmc no issues- 3 caps before meals- if she waits too long to eat she gets a cooling sensation in gut- some nausea- cholesterol- last checked- she wasnt sire- it was odne a t [facility]- we ran lipo a but no lipid panel seen- need to track down Winifred [place]ter, [place] [address] [facility], [place], [address], [place] - [facility] 01/28/2022 15:27:13 03/02/2022 text/html HPI Notes: diet not able to maintain scd diet- she isnt a cook so she cant be creative with small amount of ffod thumping in ears continue to be really bad and related to foods- last night felt heartbeat in neck and ears and nose- \ father has coronary by pass tripple bypass surgery- covid 2 weeks ago- less bc wasnt eating alot- before she got sick she worse ear planes like plugs and look like a screw and helps with pressure on plane- ear drums has perforated on plan in past- and she has a small scar on ear drum- her stomach feels better definitely not as much bloat and less belly aches- and hasnt had one for weeks but dairy set off still not going to bathroom- 1 xday the most- sts type 4 but uisially 1-4 cooking and boiling fruits- Winifred Coulter, [place] [address] [facility], [place], [address], [facility] 03/03/2022 20:18:03 04/25/2022 text/html HPI Notes: descending right carotid 6 score all other markers are 0 91 percentile- ear tube out in and tremendous help- hearing has improved tremdously- hearing equalized out- fu appt bhavana it was normal- was amplified- Dr. Calzada- ciuple of years it will be in- looked like it tightenedin- aleergies and sinus headaches every other week- she osnt eating dairy- d-hist histmaine sibo- stomac os pok- not where she wants it to be- occassioanl bloat belly ache not as bad as before stools fluctuate btn good and bad- recently after 2/3 weeks - sibo- continue- she is still looking for labs but cant find- we have not retest for iron deficinecy Winifred Coulter, RUFUS [address] [facility], [place], [address], [facility] - [facility] 05/25/2022 19:27:53 06/06/2022 text/html HPI Notes: she started getting bloated on buttercup squash phase 1 SIBO diet- started over- she stopped buttercup and went to butternut squash and she has orange diarrhea like stool before diarrhea- not a lot of stomach pains- except first 24 hours- she had honey with it- she hasnt had squash since yeaterday- she hasnt had bowel movement today- chicken applesauce- pork and beef are ok- no fish yet- not as much bloating anf still gets tightness in epigastric area- no belly aches just brief pain- first time she drank the beff we reviewed barretts esophagus dx from pcp in 2018 discussed getting another endoscopy she is in agreement seh picked a beef protein off scd recipes- onions and celery- and garlic seems to exacerbate or the ingredients- diarrhea isnt sinus got tube put in her ear- right ear is better and left ear is starting to whine again put in Novemebr- 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
--- OUTSIDE RECORDS SUMMARY | 2023-12-19 02:04 | XMS_ITS | Encounter Summary ---
Author Organization [facility] [place] [address] Care Team Providers Care Sanitary Landfill Supervisor Name Role Phone José Luis Cornejo Primary Care Provider [phone] Reason for Referral * Audiology Exam (Routine) - Closed Specialty Diagnoses / Procedures Referred By Emely alvarenga Referred To Contact Audiology Diagnoses Hearing loss, unspecified hearing loss type, unspecified laterality Tila Grande MD [facility] [place] [address] Riri Cole AUD [facility] [place] [address] Referral ID Status Reason Start Date Expiration Date V isits Requested Visits Authorized [id number] Closed Consult, Test & Treat 08/23/2018 08/23/2019 1 1 Reason for Visit * Reason Comments Other pain and pressure in both ears, ears feel full, no hearing test as an adult * Consultation (Routine) - Closed Specialty Diagnoses / Procedures Referred By Emely alvarenga Referred To Contact Otolaryngology Diagnoses Other specified disorders of right middle ear and mastoid Winifred Coulter, RUFUS [address] [place] [address] Tila Grande MD [facility] [place] [address] Referral ID Status Reason Start Date Expiration Date Visits Re quested Visits Authorized [id number] Closed 08/21/2018 08/21/2019 1 1 Encounter Details Date Type Department Care Team (Late st Contact Info) Description 08/21/2018 3:40 PM EDT Office Visit [place] [address] Tila Grande MD [facility] [place] [address] Eustachian tube dysfunction, bilateral; Chronic rhinitis; Hearing loss, unspecified hearing loss type, unspecified laterality Social History Tobacco Use Types Packs/Day Years [...] - Inhaled Oxygen Concentration - - Weight 58.5 kg (129 lb) 08/21/2018 3:41 PM EDT Height 160 cm (5' 3) 08/21/2018 3:41 PM EDT Body Mass Index 22.85 08/21/2018 3:41 PM EDT documented in this encounter Progress Notes * Tila Grande MD - 08/21/2018 3:40 PM EDT [facility] Otolaryngology - Head and Neck Surgery Tila Grande MD 08/21/18 4:10 PM [place], [place] [address] Office Patient Name: Samira Ascencio Date of : 1975 PCP: [facility] Chief Complaint: chronic ear blockage History of Present Illness: Samira Ascencio is a 43 y.o. year old female who was seen today at the request of Winifred Coulter in consultation for chronic ear pressure and pain. Patient has a longstanding history of ear pressure and discomfort bilaterally that comes and goes. Has mild sinus and nasal congestion symptoms at baseline as well left > right. Has been on flonase and allergy medications with minimal relief. Symp toms come and go randomly, has not noticed a pattern to this. Denies TMJ symptoms. Denies fevers orchills. No bleeding from the nose. Is particularly worried currently as she has a plane flight planned for the next day or so. She had an episode many years ago when on a flight she felt a sudden popin her right ear and then severe pain. No vertigo. No vision changes. Otherwise doing ok. 10 point Review of Systems was normal except for pertinent positives and negatives included in the History of Present Illness. Past Medical and Surgical History Patient Active Problem List Diagnosis Code ??? Pain in joint, shoulder region M25.519 ??? Impingement syndrome of shoulder M75.40 Current Outpatient Medications on File Prior to [...] DIAGNOSTIC performed by Elizabeth Barkley MD at [facility] ??? PRO UPPER GI ENDOSCOPY, DIAGNOSTIC N/A 08/15/2016 EGD, UPPER GI ENDOSCOPY performed by Elizabeth Barkley MD at [facility] ??? PRO UPPER GI ENDOSCOPY, DIAGNOSTIC N/A 11/20/2017 EGD, UPPER GI ENDOSCOPY performed by Elizabeth Barkley MD at [facility] Family and Social History Family History: No family history on file. Social History: Lives in [place] [address] Social History Socioeconomic History ??? Marital status: [...] file Gets together: Not on file Attends orthodoxy service: Not on file Active member of [...] ear and ear canal are without deformity. TM's with myringosclerosis bilaterally and generalized retraction left > right. No fluid or retraction pockets noted. Hearing is grossly normal. Nose: External nose is midline without deformity or lesion. Anterior rhinoscopy reveals a straight septum, healthy mucosa, turbinates normal in size. Oral: There are no visible or palpable buccal, gingival, lingual, or palatal lesions. The floor of mouth is soft and flat. Dentition is in good repair. Oropharynx: Symmetric without tonsillar pathology. No other concerning lesions or masses Larynx: No stridor, no hoarseness. External laryngeal structures normal to palpation. Face [...] No gross deformities, no peripheral edema. Procedures Nasal endoscopy was performed. 0 degree scope used to evaluate the left and right nasal cavities. Septum noted for deviation to the left with septal spur. Inferior turbinates hypertrophied bilaterally, clear mucous streaking noted bilaterally, no masses or polyps noted. Nasopharynx was unremarkable. ASSESSMENT & RECOMMENDATIONS Samira Ascencio is a 43 y.o. female with likely chronic eustachian tube dysfunction, septal deviation, chronic rhinitis. Recommendations: 1. For her more acute issues, she was advised to take a decongestant about 30 minutes before take-off and landing. We also discussed other strategies for alleviating eustachian tube dysfunction, and I will get her started on azelastine nasal spray to try to improve her chronic rhinitis. 2. F/u in 3 months with audiogram Tila Grande MD Otolaryngology - Head and Neck Surgery 08/21/18 4:10 PM documented in this encounter Plan of Treatment Scheduled Referrals Name Type Priority Associated Diagnoses Orde r Schedule Referral to Audiology Outpatient Referral Routine Hearing loss, unspecified hearing loss type, unspecified laterality Ordered: 08/23/2018 documented as of this encounter Visit Diagnoses Diagnosis Eustachian tube dysfunction, bilateral Chronic rhinitis Hearing loss, unspecified hearing loss type, unspecified laterality documented in this encounter Care Teams Sanitary Landfill Supervisor Relationship Specialty Start Date End Date José Luis Cornejo PA [address] [place] [address] PCP - General Family Medicine 05/29/16 12/30/19 documented as of this encounter
--- OUTSIDE RECORDS SUMMARY | 2023-12-19 02:04 | XMS_ITS | Encounter Summary ---
Author Organization [facility] [place] [address] Care Team Providers Care Animal Ecologist Name Role Phone Watson Khalil MD Primary Care Provider [phone] Reason for Visit * Reason Onset Date Comments Medication Problem 05/30/2011 Prior Auth de nied-benefit exclusion Encounter Details Date Type Department Care Team (Late st Contact Info) Description 05/30/2011 Telephone Dermatology [place] [id number] Jolanta Lucas MD [facility] [place] [address] Medication Problem (Prior Auth denied-benefit exclusion) Social History Tobacco Use Types Packs/Day Years Used Date Smoking Tobacco: Never Assessed Sex and Gender Information Value Date Recorded Sex Assigned at Not on file Gender Identity Not on file Sexual Orientation Not on file documented as of this encounter Miscellaneous Notes * Telephone Encounter - Jolanta Ruth MD - 06/07/2011 12:04 PM EST If she cannot get 4% hydroquinone due to insurance, would recommend 2% OTC hydroquinone. * Telephone Encounter - Erlinda Lindsay - 05/30/2011 3:04 PM EST ELIN PT -- Pt's insurance denied covered of the Hydoquinone due to benefit exclusion. Please let me know if I should contact the pt? Thanks Erlinda documented in this encounter Plan of Treatment Not on file documented as of this encounter Visit Diagnoses Not on filedocumented in this encounter Care Teams Animal Ecologist Relationship Specialty Start Date End Date Watson Khalil MD [address] [place] [address] PCP - General 04/05/10 05/28/16 documented as of this encounter
--- OUTSIDE RECORDS SUMMARY | 2023-12-19 02:04 | XMS_ITS | Encounter Summary ---
Author Organization [facility] Address [place] [id number] Care Team Providers Care Mine Patrol Name Role Phone Watson Khalil MD Primary Care Provider [phone] Reason for Visit * Reason Comments Skin Lesion Encounter Details Date Type Department Care Team (Late st Contact Info) Description 05/04/2011 5:00 PM EST Office [place] [address] Jolanta Lucas MD [facility] [place] [address] Melasma (Primary Dx) Discharge Disposition: Home Social History Tobacco Use Types Packs/Day Years Used Date Smoking Tobacco: Never Assessed Sex and Gender Information Value Date Recorded Sex Assigned at Not on file Gender Identity Not on file Sexual Orientation Not on file documented as of this encounter Progress Notes * Jolanta Ruth MD - 05/04/2011 5:21 PM EST DERMATOLOGY CONSULT NOTE Date of service: 05/04/2011 Samira Snider : 1975 Provider: Jolanta Ruth MD Chief Complaint Patient presents with ??? Skin Lesion The patient is seen at the request of WATSON KHALIL MD, who instructed the patient to be seen for evaluation of above SKIN HX:negative HPI Samira Snider is a 35 y.o. year old female,new patient referred for brown spots on her face that were noticed about 2 years ago and seem to be getting bigger and darker in the summer. Have faded somewhat now in the winter months. On OCP, and did have change in OCP approximately 2 years ago around the time of onset of brown patches. ADR: Review of patient's allergies indicates no known allergies. MEDS: No current outpatient prescriptions on file prior to encounter. ROS General: feeling well Skin: denies other skin complaints EXAM General: NAD, pleasant, cooperative female. Skin: An exam of the skin from the neck up was performed. This includes examination of the skin of the face, ears, scalp, and neck. Significant skin findings: A.Bilateral symmetric, light-brown, well-circumscribed patches in mask-like pattern on face on central forehead, cheeks and above upper lip. ASSESSMENT/PLAN: A.Melasma. Discussed diagnosis, common triggers (including OCPs), exacerbating factors (UV exposure). Recommended treatment with Hydroquinone 4% cream every morning x 8 weeks and Retin-A Micro at bedtime qHS, with continued strict sunprotection with SPF 45 broad spectrum sunscreen daily. Consider alternative form of control - she will discuss with PCP or TELEVISION NEWS PRODUCER. Rx: Retin-A 0.04% gel at bedtime as tolerated. Discussed strategies for decreasing irritation including using 30-45 minutes after washing at night, using pea-sized amount mixed with moisturizer, start 3x/week working up to nightly as tolerated. B.RTC 6 months Note initiated by: PENNIE MERCADO LPN Routed to physician for review and changes: Jolanta Ruth MD [facility] Department of Surgery [facility] cc: WATSON KHALIL MD documented in this encounter Plan of Treatment Not on file documented as of this encounter Visit Diagnoses Diagnosis Melasma- Primary Other dyschromia documented in this encounter Care Teams Mine Patrol Relationship Specialty Start Date End Date Watson Khalil MD [address] [place] [address] PCP - General 04/05/10 05/28/16 documented as of this encounter
--- OUTSIDE RECORDS SUMMARY | 2023-12-19 02:04 | XMS_ITS | Encounter Summary ---
Author Organization [facility] [place] [address] Care Team Providers Care Barrel Reamer Name Role Phone José Luis Cornejo Primary Care Provider [phone] Reason for Visit * Auth/Cert Specialty Diagnoses / Procedures Referred By Contac t Referred To Contact Diagnoses epigastric abdominal pain Procedures PRO UPPER GI ENDOSCOPY, DIAGNOSTIC EGD, UPPER GI ENDOSCOPY Referral ID Status Reason Start Date Expiration Date Visits Re quested Visits Authorized [id number] 1 1 Encounter Details Date Type Department Care Team (Late st Contact Info) Description 11/20/2017 2:08 PM EDT Anesthesia [place] [address] Vincent Mejia MD [facility] [place] [address] Albert Larsen, [facility] [address] [place] [address] Anesthesia Record Procedure Summary Procedure Name Responsible Anesthesiologist Anesthesia Start Time Anesthesia Stop Time EGD, UPPER GI ENDOSCOPY (WRVU 2.09) (Trunk) Vincent Mejia MD 11/20/17 1408 11/20/17 1451 Events Date Time Event Comment 11/20/2017 1320 1408 AN Verify 1408 Start 1408 An Start Data 1410 An Induction 1410 Anesthesia Ready 1419 an stop data 1451 Recovery or ICU Handoff Kari ent care was transferred to the destination unit staff after review of the patient's medical history, current anesthetic/surgical status and plan, according to the Provider Handoff Checklist. 1451 Stop Meds Name Total IV Lidocaine 80 mg Propofol 150 mg Lactated Ringers 0 mL * Agents Name O2 Air N2O O2 Auxiliary Flowmeter 1 * Blood No blood administrations on file. Lines, Drains, and Airways Type Details Placement Removal (RETIRED) Peripheral IV Line - Single Lumen 11/20/17; 1405; dcne-kyh-oyezoh catheter system; 20 gauge; Nia Wang RN; intradermal injection; 11/20/17; 1527 11/20/17 1405 by Luna Espino RN 11/20/17 1527 by Racquel Porter RN documented in this encounter Social History Tobacco Use Types Packs/Day Years Used Date Smoking Tobacco: Never Smokeless Tobacco: Never Alcohol Use Standard Drinks/Week Comments Yes 0 (1 standard drink = 0.6 oz pur e alcohol) occasional Sex and Gender Information Value Date Recorded Sex Assigned at Not on file Gender Identity Not on file Sexual Orientation Not on file documented as of this encounter OR Notes * Anesthesia Postprocedure Evaluation - Vincent Mejia MD - 11/20/2017 8:31 PM EDT [facility] [place] Department of Anesthesiology Post-procedure Note Patient: Samira Ascencio Procedure Summary Date Anesthesia Start Anesthesia Stop Room / Location 11/20/[address] [facility] 2 / [facility] Procedure Diagnosis Surgeon Responsible Provider EGD, UPPER GI ENDOSCOPY (N/A Trunk) (epigastric abdominal pain ) Elizabeth Barkley MD Koff, Matthew D, MD All Anesthesia Providers: Anesthesiologist: Vincent Mejia MD PAID SEARCH ANALYST: Albert Larsen CRNA Most Recent Vitals: 11/20/17 1500 BP: 113/72 Pulse: Resp: 16 SpO2: 98% Pain ANES POST EVAL * Anesthesia Preprocedure Evaluation - Vincent Mejia MD - 11/20/2017 1:00 PM EDT Pre-Anesthesia Evaluation for: Samira Ascencio a 42 y.o. female. Procedure(s): EGD, UPPER GI ENDOSCOPY Patient Active Problem List Diagnosis ??? Pain in joint, shoulder region ??? Impingement syndrome of shoulder No past medical history on file. Past Surgical History: Procedure Laterality Date ??? PRO COLONOSCOPY, DIAGNOSTIC N/A 08/15/2016 COLONOSCOPY, DIAGNOSTIC performed by Elizabeth Barkley MD at [facility] ??? PRO UPPER GI ENDOSCOPY, DIAGNOSTIC N/A 08/15/2016 EGD, UPPER GI ENDOSCOPY performed by Elizabeth Barkley MD at [facility] Social History Substance Use Topics ??? Smoking status: Never Smoker ??? Smokeless tobacco: Not on file ??? Alcohol use Yes Comment: occasional History Drug Use No No Known Allergies Medications: MAR and/or home medications have been reviewed. Physical Exam: There were no vitals filed for this visit. There is no height or weight on file to calculate BMI. Airway Assessment: Mallampati: I TM distance: >3 FB Neck ROM: full Cardiovascular Assessment: cardiovascular exam normal Pulmonary Assessment: pulmonary exam normal Dental Assessment: - normal exam Misc Assessment: Patient is wearing No contact(s). IV access: Peripheral line Anesthesia Plan: ASA 1 MAC, with a(n) intravenous induction EGD Region - Other Informed Consent: Anesthetic plan and risks discussed with patient and mother. Plan discussed with PAID SEARCH ANALYST. PAT Staff Note documented in this encounter Plan of Treatment Not on file documented as of this encounter Visit Diagnoses Not on filedocumented in this encounter Administered Medications Inactive Administered Medications - up to 3 most recent administrations Medication Order MAR Action Action Date Dose Rate Site lactated Ringers infusion CONTINUOUS PRN, Starting on Sun11/20/17 at 1408, Until Sun11/20/17 at 1451, Anesthesia Intra-op New Bag 11/20/2017 2:08 PM EDT lidocaine (PF) (XYLOCAINE) 100 mg/5 mL (2 %) injection PRN, Starting on Sun11/20/17 at 1410, Until Sun11/20/17 at 1451, Anesthesia Intra-op, Routine Given 11/20/2017 2:10 PM EDT 80 mg propofol (DIPRIVAN) 10 mg/mL bolus injection (Anesthesia) PRN, Starting on Sun11/20/17 at 1410, Until Sun11/20/17 at 1451, Anesthesia Intra-op Given 11/20/2017 2:16 PM EDT 50 mg Given 11/20/2017 2:10 PM EDT 100 mg documented in this encounter Care Teams Barrel Reamer Relationship Specialty Start Date End Date José Luis Cornejo PA [address] [place] [address] PCP - General Family Medicine 05/29/16 12/30/19 documented as of this encounter
--- OUTSIDE RECORDS SUMMARY | 2023-12-19 02:04 | XMS_ITS | Encounter Summary ---
Author Organization [facility] [place] [address] Care Team Providers Care Ppa Teacher Name Role Phone Watson Khalil MD Primary Care Provider [phone] Reason for Visit * Reason Comments Skin Check Encounter Details Date Type Department Care Team (Late st Contact Info) Description 11/07/2011 10:45 AM EDT Follow-[place] [address] Jolanta Ruth MD [facility] [place] [address] Jolanta Lucas MD [facility] [place] [address] Melasma (Primary Dx) Discharge Disposition: Home Social History Tobacco Use Types Packs/Day Years Used Date Smoking Tobacco: Never Assessed Sex and Gender Information Value Date Recorded Sex Assigned at Not on file Gender Identity Not on file Sexual Orientation Not on file documented as of this encounter Progress Notes * Jolanta Ruth MD - 11/07/2011 11:09 AM EDT DERMATOLOGY ESTABLISHED PATIENT CLINIC NOTE Date of service: 11/07/2011 Samira Snider : 1975 Provider: Jolanta Ruth MD SKIN HISTORY: Melasma HPI Samira Snider is a 36 y.o. year old female.Established patient of [employer]. She is here today for melasma follow up. Used Hydroquinone 4% x 8 weeks and retinA x 8 weeks, and then stopped the Retin A. Shefeels that there has not been much improvement in her skin. She is using sunscreen.She has stopped her OCP's. ADR: No Known Allergies MEDS: Current outpatient prescriptions ordered prior to encounter Medication Sig Dispense Refill ??? citalopram (CELEXA) 20 mg tablet Take 10 mg by mouth daily. ??? multivitamin (THERAGRAN) tablet Take 1 tablet by mouth daily. ??? tretinoin microspheres (RETIN-A MICRO) 0.04 % gel Apply topically nightly. 45 g 0 ??? hydroquinone 4 % cream Apply topically every morning. 28.35 g 0 ROS General: feeling well Skin: denies other skin complaints EXAM General: NAD, pleasant, cooperative Skin: exam of face Significant skin findings: A. Bilateral symmetric, light-brown, well-circumscribed patches in mask-like pattern on face ASSESSMENT/PLAN: A. Melasma- use hydroquinone qAM x 8 weeks, Use the Retin A qHS, and then discontinue Hydroquinone but continue retin-A qHS ongoing. Discussed the importance of sunscreen use .Discussed laser treatment of melasma, sometimes variable results, risk of hyperpigmentation. Will refer if pt wishes if no i mprovement with above. B. RTC as needed. Note initiated by: LIZZY ARIAS LPN Routed to physician for review and changes: Jolanta Ruth MD Intensive Care Specialist of Dermatology Department of Surgery [facility] documented in this encounter Plan of Treatment Not on file documented as of this encounter Visit Diagnoses Diagnosis Melasma- Primary Other dyschromia documented in this encounter Care Teams Ppa Teacher Relationship Specialty Start Date End Date Watson Khalil MD [address] [place] [address] PCP - General 04/05/10 05/28/16 documented as of this encounter
--- OUTSIDE RECORDS SUMMARY | 2023-12-19 02:04 | XMS_ITS | Encounter Summary ---
Author Organization [facility] [place] [address] Care Team Providers Care Director Of Public Works Name Role Phone Watson Khalil MD Primary Care Provider [phone] Reason for Visit * Reason Onset Date Comments Other 06/05/2011 Returned your ca ll Encounter Details Date Type Department Care Team (Late st Contact Info) Description 06/05/2011 Telephone Dermatology [place] [id number] Jolanta Lucas MD [facility] [place] [address] Other (Returned your call) Social History Tobacco Use Types Packs/Day Years Used Date Smoking Tobacco: Never Assessed Sex and Gender Information Value Date Recorded Sex Assigned at Not on file Gender Identity Not on file Sexual Orientation Not on file documented as of this encounter Miscellaneous Notes * Telephone Encounter - Mary Beth Llanos - 06/05/2011 9:22 AM EST LINI PT Geetha -- Pt returned your call. You can reach her on her cell # [phone]. Mary Beth Slade documented in this encounter Plan of Treatment Not on file documented as of this encounter Visit Diagnoses Not on filedocumented in this encounter Care Teams Director Of Public Works Relationship Specialty Start Date End Date Watson Khalil MD [address] [place], [place] [address] PCP - General 04/05/10 05/28/16 documented as of this encounter
--- OUTSIDE RECORDS SUMMARY | 2023-12-19 02:04 | XMS_ITS | Encounter Summary ---
Author Organization [facility] Address [facility] [place] [address] Care Team Providers Care Senior Advisor Name Role Phone Watson Khalil MD Primary Care Provider [phone] Reason for Referral * Physical Therapy (Routine) - Complete - Patient Will Schedule External Appt Specialty Diagnoses / Procedures Referred By Emely t Referred To Contact Physical Therapy Diagnoses Impingement syndrome of shoulder Pain in joint, shoulder region Em Rodriguez PA [facility] [place] [address] Referral ID Status Reason Start Date Expiration Date Visits Requested Visits Authorized [id number] Complete - Patient Will Schedule External Appt Evaluate and Treat 12/05/2011 06/02/2012 12 12 Reason for Visit * Reason Comments Right Shoulder Pain DOI 07/2011 Encounter Details Date Type Department Care Team (Late st Contact Info) Description 12/05/2011 1:10 PM EDT Office [place] [address] Rebecca Can MD [facility] [place] [address] Impingement syndrome of shoulder; Pain in joint, shoulder region Discharge Disposition: Home Social History Tobacco Use [...] Sign Reading Time Taken Comments Blood Pressure 104/62 12/05/2011 1:18 PM EDT Pulse - - Temperature - - Respiratory Rate - - Oxygen Saturation - - Inhaled Oxygen Concentration - - Weight 58.5 kg (129 lb) 12/05/2011 1:18 PM EDT Height 161.3 cm (5' 3.5) 12/05/2011 1:18 PM EDT Body Mass Index 22.49 12/05/2011 1:18 PM EDT documented in this encounter Progress Notes * Rebecca Can MD - 12/06/2011 7:59 AM EDT Attending addendum: The preceeding portion of this note was written by Em Rodriguez PA-C. I personally saw and evaluated the patient as well and I agree with the assessment and plan documented above. Rebecca Can M.D., M.S. [facility]aker of Orthopaedic Surgery Shoulder, Elbow, and Sports Medicine Department of Orthopaedic Surgery [place] [address] * Em Rodriguez PA - 12/05/2011 2:18 PM EDT PATIENT NAME: Samira Snider AGE: 36 y.o. MR#: [id number] DATE OF VISIT: 12/05/2011 DATE OF INJURY/ONSET: July 2011 STAFF: Dr. Rebecca Can CHIEF COMPLAINT: Bilateral shoulder pain right greater than left and his cervical spine stiffness HISTORY OF PRESENT ILLNESS Ms. Snider a 36 y.o. year old female comes into clinic today for evaluation of her bilateral shoulder pain.The patient states she's been having shoulder discomfort since July 2011. The patient attributes her shoulder discomfort to lifting weights particularly press as well as pushups. Over the last 2-3 weeks the patient has experienced increased cervical spine stiffness as well as tenderness in the musculature surrounding her cervical spine. In regards to thepatients shoulder she locates her discomfort over the anterior aspect of the shoulders radiating into the lateral deltoid. She states that carrying heavy items, household repetitive motions, and writing cause her the most discomfort. The patient describes the pain as pinching and achiness after activity. The patient describes intensity of discomfort is moderate. Patient has a difficulty with sleeping. Patient denies any significant radiation of discomfort. Patient denies any numbness/tingling into her extremities bilaterally. The patient has been taking 400 mg of ibuprofen occasionally. The patient has not had a course of physical therapy or cortisone injection. The patient has been workingwith a chiropractor for approximately 4 weeks. The patient had an MRI examination ordered by her primary care physician Dr. Leiva. 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 Discussed with the patient that she should contact her primary care regarding this PHYSICAL EXAM: Ms. Snider a 36 y.o. year old is alert and oriented. She appears in no acute discomfort and is resting comfortably in a chair in the exam room. Inspection: There is no obvious deformity, discolorations, or effusion of the injured extremity. Nomuscle atrophy is noted. Palpation: Patient did not have any significant tenderness to palpation over the acromioclavicular joint, anterior posterior aspects of glenohumeral joint, or the insertion of the rotator cuff bilaterally to light palpation. Forward Flexion: 180?? Abduction: 180 External Rotation: 70?? Internal Rotation: T10 Strength: Patient's strength was 5/5 in all the above motions including empty can. The patient had mild discomfort with empty can and regards to the right shoulder Orthopedic testing: Negative testing on the belly press, empty can, and Neer one, O'Briens, horizontal adduction, painful arc of motion, speeds, Yergason's. Patient had mildly positive Dumont Paul on examination Patient's range of motion of her cervical spine was within normal limits in regards to flexion, extension, right rotation, left rotation, and a negative Spurling exam. Neurological: Neurologic examination of the upper extremity is intact with normal motor function ofthe radial, median, ulnar, axillary and musculocutaneous nerves. Sensory function is intact in the radial, median, ulnar, axillary, and lateral antebrachial cutaneous nerve distributions. The hand was well perfused. Radial pulses are 2+ and equal bilateral. RADIOLOGICAL STUDIES: We did not have the opportunity to review the patient's images in regards to her MRI examination. We were able to review the patient's radiologic reports regarding MRI exam. ASSESSMENT: Mild impingement; cervical spine muscular tightness PLAN: Ms. Snider and I discussed her radiologic findings and physical exam findings. The pertinent positives were On impingement and cervical spine muscular tightness on physical examination.I discussed with the patient that shoulder treatment can be broken into three tiers: first, physical therapy and anti-inflammatory medication; second, cortisone injections; and third, surgical interventions. Given the patients signs, symptoms, and previous therapies I feel it is appropriate to refer the patient for 6 week course of physical therapy focused at both her cervical spine as well as impingement.I also suggested that the patient try 600 mg of ibuprofen 3 times daily taken with food. The patient understands to discontinue this medication if she experiences stomach upset. We will plan to see the patient back in approximately 6 weeks. The patient understands she can cancel this appointment ifshe has a significant relief in her symptoms.. The patient understands to contact us if they have any other questions or concerns. This dictation was performed using [employer] dictaction. I have attempted to edit the note, but there may still be errors. documented in this encounter Plan of Treatment Scheduled Referrals Name Type Priority Associated Diagnoses Orde r Schedule REFERRAL TO PHYSICAL THERAPY Outpatient Referral Routine Impingement syndrome of shoulder Pain in joint, shoulder region Ordered: 12/05/2011 documented as of this encounter Visit Diagnoses Diagnosis Impingement syndrome of shoulder Other affections of shoulder region, not elsewhere classified Pain in joint, shoulder region documented in this encounter Care Teams Senior Advisor Relationship Specialty Start Date End Date Watson Khalil MD [address] [place] [address] PCP - General 04/05/10 05/28/16 documented as of this encounter
--- OUTSIDE RECORDS SUMMARY | 2023-12-21 00:18 | XMS_ITS | Encounter Summary ---
Author Organization [facility] Address [address] [place] [address] Care Team Providers Care Slide Forming Machine Tender Name Role Phone Watson Khalil MD Primary Care Provider Encounter Details Date Type Department Care Team (Late st Contact Info) Description 02/08/2015 Results Only [facility] [phone] Jaylin Bell, [facility] [address] [place] [address] Social History Tobacco Use Types [...] ? SAMIRA SNIDER ? Accession #: ? [id number] ? : ? 1975 (Age: 39) ??F ?Collect Date: ? 02/08/2015 ? Location: ? [facility] ? Receive Date: ? 02/09/2015 ? Provider: JAYLIN BELL INSIDE SALES DIRECTOR Copy to: WATSON KHALIL MD ? Final [...] 33,35,39,45,51,52, 56,58,59,66, and 68 is detected by toll settlement clerk mediated amplification. High and intermediate risk HPV [...] confirmed the above diagnosis. End of Report [facility] 02/08/2015 02/09/2015 Jaylin Bell INSIDE SALES DIRECTOR PATHOLOGY ORDERABLES [facility] [address] [place] [address] documented in this encounter Visit Diagnoses Not on filedocumented in this encounter Care Teams Slide Forming Machine Tender Relationship Specialty Start Date End Date Watson Khalil MD [address] [place] [id number] PCP - General 02/18/13 documented as of this encounter
--- OUTSIDE RECORDS SUMMARY | 2023-12-21 00:18 | XMS_ITS | Encounter Summary ---
Author Organization [facility] Address [address] [place] [address] Care Team Providers Care Line Dancer Name Role Phone Watson Khalil MD Primary Care Provider [phone] Encounter Details Date Type Department Care Team (Late st Contact Info) Description 02/17/2013 Results Only [facility] - [facility] [address] [place] [id number] Watson Khalil MD [address] [place], [place] [address] Social History Tobacco Use Types Packs/Day Years [...] ? SAMIRA SNIDER ? Accession #: ? [id number] ? : ? 1975 (Age: 37) ??F [...] moderate amount of cytoplasm. ??The melanocytes show explosive technician maturation. ??(Dr. Villafana)/[facility] Document reviewed and electronically signed by: SERA [...] cm. ??Trisected and submitted in 1. Nannette Kumari 02/18/2013 12:41 PM End of Report [facility] 02/17/2013 9:59 EDT 02/18/2013 9:59 EDT Watson Khalil MD PATHOLOGY ORDERABLES [facility] [address] [place] [address] documented in this encounter Visit Diagnoses Not on filedocumented in this encounter Care Teams Line Dancer Relationship Specialty Start Date End Date Watson Khalil MD [address] [place] [address] PCP - General 02/18/13 documented as of this encounter
--- OUTSIDE RECORDS SUMMARY | 2023-12-21 00:18 | XMS_ITS | Encounter Summary ---
Author Organization [facility] Address [facility] [place] [address] Care Team Providers Care Environmental Engineering Aide Name Role Phone José Luis Cornejo Primary Care Provider +1- [phone] Encounter Details Date Type Department Care Team (Latest Contact Info) Description 08/15/2016 8:41 AM EDT - 08/15/2016 11:27 AM EDT Hospital Encounter [place] [address] Elizabeth Barkley MD [facility] [place] [address] Discharge Disposition: Home Social History Tobacco Use [...] occurs please contact your M.D. Please call [phone] before 5 pm with problems, questions or concerns. After 5pm call [phone] and ask to speak with the jelly filter tender hvac installation technician. Discharge instructions reviewed with patient [...] sedation) Elizabeth Barkley MD Gastroenterology attending Pager [phone] documented in this encounter Plan of Treatment [...] Report (08/15/2016 10:33 AM EDT) Final Diagnosis [id number] ?Location: ; [facility]; The signing pathologist has (i) examined the [...] ing: (T1) ??ejr 08/18/2016 1:55 PM EDT [facility] GI Biopsy 08/15/2016 10:3 3 AM EDT 08/15/2016 10:33 AM EDT GI Biopsy 08/15/2016 10:3 3 AM EDT 08/15/2016 10:33 AM EDT Elizabeth Barkley MD PATHOLOGY/CYTOLOG Y ORDERABLES Performing Organization Address [facility] [place] [address] * Specimen to Pathology (surgical or derm) (08/15/2016 10:33 AM EDT) AP Specimen 08/15/2016 10:3 3 AM EDT 08/15/2016 10:33 AM EDT Narrative [facility] - 08/15/2016 10:33 AM EDT Specimen requisition ordered. ??Separate Pathology report to follow Elizabeth Barkley MD PATHOLOGY/CYTOLOG Y ORDERABLES Performing Organization Address [facility] [place] [address] * Specimen to Pathology (surgical or derm) (08/15/2016 10:33 AM EDT) AP Specimen 08/15/2016 10:3 3 AM EDT 08/15/2016 10:33 AM EDT Narrative [facility] - 08/15/2016 10:33 AM EDT Specimen requisition ordered. ??Separate Pathology report to follow Elizabeth Barkley MD PATHOLOGY/CYTOLOG Y ORDERABLES Performing Organization Address [facility] [place] [address] * COLONOSCOPY (08/15/2016 9:38 AM EDT) COLONOSCOPY [facility] Endoscopy ___ Procedure Date: 08/15/2016 9:38 AM ? Patient Name: Samira Snider ? Date of : 1975 ? Age: 41 ? Order #: [id number] ? Instrument Name: [id number] ? ___ Procedure: ? Colonoscopy Indications: ? Hematochezia, Diarrhea (intermittent) Providers: ? Elizabeth Barkley MD, Seble Forbes, ? RN, Bianca Rubi, Cement Mixer Referring : ?CEM Bell Medicines: ? An [...] preparation was evaluated using ? the BBPS (Brightwood Bowel Preparation ? Scale) with scores of: [...] GI ENDOSCOPY (08/15/2016 9:37 AM EDT) Pathologist [facility] UPPER GI ENDOSCOPY [facility] Endoscopy Procedure Date: 08/15/2016 9:37 AM ? Patient Name: Samira Snider ? [facility]: [id number] ? Date of : 1975 ? Age: 41 ? Order #: [id number] ? Instrument Name: [id number] ? Procedure: ? Upper GI endoscopy Indications: ? Epigastric abdominal pain, ? post-prandial abdominal bloating and ? gas Providers: ? Elizabeth Barkley MD, Seble Forbes, ? RN, Bianca Rubi, Cement Mixer Referring MD: ?CEM Bell Medicines: ? Midazolam [...] GENERAL SURGICAL ORD ERABLES Performing Organization Address City/State/[facility] Co de Phone Number PROVATION documented in [...] sedation) documented in this encounter Care Teams Environmental Engineering Aide Relationship Specialty Start Date End Date José Luis Cornejo PA [address] [place] [address] PCP - General Family Medicine 05/29/16 12/30/19 documented as of this encounter
--- OUTSIDE RECORDS SUMMARY | 2023-12-21 00:18 | XMS_ITS | Encounter Summary ---
Author Organization [facility] [place] [address] Care Team Providers Care Research And Evaluation Analyst Name Role Phone José Luis Cornejo Primary Care Provider +1- [phone] Reason for Visit * Auth/Cert Specialty Diagnoses / Procedures Referred By Emely t Referred To Contact Diagnoses epigastric abdominal pain Procedures PRO UPPER GI ENDOSCOPY, DIAGNOSTIC EGD, UPPER GI ENDOSCOPY Referral ID Status Reason Start Date Expiration Date Visits Re quested Visits Authorized [id number] 1 1 Encounter Details Date Type Department Care Team (Late st Contact Info) Description 11/20/2017 1:00 PM EDT - 11/20/2017 1:30 PM EDT Surgery [place] [address] Elizabeth Barkley MD [facility] [place] [address] EGD, UPPER GI ENDOSCOPY (WRU 2.09) Social [...] better as expected. Sunday-Sunday Same Day Endo [phone] 7a-8p Otherwise contact [phone] and ask to speak to the summer child caregiver station gateman Follow-up care is a lassiter part of [...] anesthesia Elizabeth Barkley MD Gastroenterology attending Pager [phone] documented in this encounter Plan of Treatment [...] PM EDT 11/20/2017 2:37 PM EDT Narrative [facility] - 11/20/2017 2:37 PM EDT Specimen requisition ordered. ??Separate Pathology report to follow Elizabeth Barkley MD PATHOLOGY/CYTOLOG Y ORDERABLES [facility] [place] [address] * Specimen to Pathology (11/20/2017 2:37 PM EDT) AP Specimen 11/20/2017 2:37 PM EDT 11/20/2017 2:37 PM EDT Narrative [facility] - 11/20/2017 2:37 PM EDT Specimen requisition ordered. ??Separate Pathology report to follow Elizabeth Barkley MD PATHOLOGY/CYTOLOG Y ORDERABLES Performing Organization Address [facility] [place] [address] * Specimen to Pathology (11/20/2017 2:37 PM EDT) AP Specimen 11/20/2017 2:37 PM EDT 11/20/2017 2:37 PM EDT Narrative [facility] - 11/20/2017 2:37 PM EDT Specimen requisition ordered. ??Separate Pathology report to follow Elizabeth Barkley MD PATHOLOGY/CYTOLOG Y ORDERABLES Performing Organization Address [facility] [place] [address] * Specimen to Pathology (11/20/2017 2:37 PM EDT) AP Specimen 11/20/2017 2:37 PM EDT 11/20/2017 2:37 PM EDT Narrative [facility] - 11/20/2017 2:37 PM EDT Specimen requisition ordered. ??Separate Pathology report to follow Elizabeth Barkley MD PATHOLOGY/CYTOLOG Y ORDERABLES Performing Organization Address [facility] [place] [address] * Surgical Pathology Report (11/20/2017 2:31 PM EDT) Final Diagnosis [id number] ? Location: 4T; EA06; A The signing [...] Perez MD Verified: ??11/22/2017 ?Pathologist Performed at: ??-[facility] Dept. of Pathology, [place], [place] CLINICAL INFORMATION Specimen Submitted: A - [...] ng: (T1) ??ejr 11/22/2017 3:01 PM EDT [facility] GI Biopsy 11/20/2017 2:31 PM EDT 11/20/2017 2:31 PM EDT GI Biopsy 11/20/2017 2:31 PM EDT 11/20/2017 2:31 PM EDT GI Biopsy 11/20/2017 2:31 PM EDT 11/20/2017 2:31 PM EDT GI Biopsy 11/20/2017 2:31 PM EDT 11/20/2017 2:31 PM EDT Elizabeth Barkley MD PATHOLOGY/CYTOLOG Y ORDERABLES Performing Organization Address [facility]/State/ZIP Co de Phone Number [facility] [place] [address] * UPPER GI ENDOSCOPY (11/20/2017 2:07 PM EDT) UPPER GI ENDOSCOPY [facility] Endoscopy ___ Procedure Date: 11/20/2017 2:07 PM ? Patient Name: Samira Ascencio ? N: [id number] ? Date of : 1975 ? Age: 42 ? Order #: [id number] ? Instrument Name: [id number] ? ___ Procedure: ? Upper GI endoscopy [...] on filedocumented in this encounter Care Teams Research And Evaluation Analyst Relationship Specialty Start Date End Date José Luis Cornejo PA [address] [place], [place] [address] PCP - General Family Medicine 05/29/16 12/30/19 documented as of this encounter
--- OUTSIDE RECORDS SUMMARY | 2023-12-21 00:18 | XMS_ITS | Encounter Summary ---
Author Organization [facility] [place] [address] Care Team Providers Care Rib Builder Name Role Phone Watson Khalil MD Primary Care Provider [phone] Reason for Visit * Reason Onset Date Comments Medication Problem 05/30/2011 Prior Auth de nied-benefit exclusion Encounter Details Date Type Department Care Team (Late st Contact Info) Description 05/30/2011 Telephone Dermatology [place] [id number] Jolanta Lucas MD [facility] [place] [address] Medication Problem (Prior Auth denied-benefit exclusion) Social [...] on filedocumented in this encounter Care Teams Rib Builder Relationship Specialty Start Date End Date Watson Khalil MD [address] [place] [address] PCP - General 04/05/10 05/28/16 documented as of this encounter
--- OUTSIDE RECORDS SUMMARY | 2023-12-21 00:18 | XMS_ITS | Encounter Summary ---
Author Organization [facility] Address [address] [place] [address] Care Team Providers Care Bean Sprout Grower Name Role Phone Watson Khalil MD Primary Care Provider [phone] Encounter Details Date Type Department Care Team (Late st Contact Info) Description 03/28/2016 Results Only [facility] [phone] Jaylin Bell, [facility] [address] [place] [address] Social History Tobacco Use Types [...] ? SAMIRA COLMENARES ? Accession #: ? [id number] ? : ? 1975 (Age: 40) ??F ?Collect Date: ? 03/28/2016 ? Location: ? [facility] ? Receive Date: ? 03/29/2016 ? Provider: JAYLIN BELL MINE SURVEYOR Copy to: WATSON KHALIL MD ? Final [...] types 16,18,31,33,35, 39,45,51,52,56,58, 59,66, and 68 by warehouse shipping supervisor mediated amplification. Comments Document reviewed and electronically signed by: ? System Interface ? Report date: 04/07/2016 By the signature above, the attending physician certifies that he/she has personally conducted a gross and/or microscopic examination of the described specimens and rendered or confirmed the above diagnosis. End of Report [facility] 03/28/2016 03/29/2016 Jaylin Bell MINE SURVEYOR PATHOLOGY ORDERABLES [facility] [address] [place] [address] documented in this encounter Visit Diagnoses Not on filedocumented in this encounter Care Teams Bean Sprout Grower Relationship Specialty Start Date End Date Watson Khalil MD [address] [place] [address] PCP - General 02/18/13 documented as of this encounter
--- OUTSIDE RECORDS SUMMARY | 2023-12-21 00:18 | XMS_ITS | Encounter Summary ---
Author Organization [facility] [place] [address] Care Team Providers Care Medical Accountant Name Role Phone José Luis Cornejo Primary Care Provider [phone]- [phone] Reason for Visit * Auth/Cert Specialty Diagnoses / Procedures Referred By Contac t Referred To Contact Diagnoses epigastric abdominal pain Procedures PRO UPPER GI ENDOSCOPY, DIAGNOSTIC EGD, UPPER GI ENDOSCOPY Referral ID Status Reason Start Date Expiration Date Visits Re quested Visits Authorized [id number] 1 1 Encounter Details Date Type Department Care Team (Latest Contact Info) Description 11/20/2017 12:16 PM EDT - 11/20/2017 3:36 PM EDT Hospital En[place] [address] Elizabeth Barkley MD [facility] [place] [address] Discharge Disposition: Home Social History Tobacco Use [...] better as expected. Sunday-Sunday Same Day Endo [phone] 7a-8p Otherwise contact [phone] and ask to speak to the shaker flatwork conditioning coach Follow-up care is a lassiter part of [...] anesthesia Elizabeth Barkley MD Gastroenterology attending Pager [phone] documented in this encounter Plan of Treatment [...] PM EDT 11/20/2017 2:37 PM EDT Narrative [facility] - 11/20/2017 2:37 PM EDT Specimen requisition ordered. ??Separate Pathology report to follow Elizabeth Barkley MD PATHOLOGY/[place] [address] * Specimen to Pathology (11/20/2017 2:37 PM EDT) AP Specimen 11/20/2017 2:37 PM EDT 11/20/2017 2:37 PM EDT Narrative [facility] - 11/20/2017 2:37 PM EDT Specimen requisition ordered. ??Separate Pathology report to follow Elizabeth Barkley MD PATHOLOGY/CYTOLOG Y ORDERABLES Performing Organization Address [facility]/[place] [address] * Specimen to Pathology (11/20/2017 2:37 PM EDT) AP Specimen 11/20/2017 2:37 PM EDT 11/20/2017 2:37 PM EDT Narrative [facility] - 11/20/2017 2:37 PM EDT Specimen requisition ordered. ??Separate Pathology report to follow Elizabeth Barkley MD PATHOLOGY/CYTOLOG Y ORDERABLES Performing Organization Address City/[facility]/[place] [address] * Specimen to Pathology (11/20/2017 2:37 PM EDT) AP Specimen 11/20/2017 2:37 PM EDT 11/20/2017 2:37 PM EDT Narrative [facility] - 11/20/2017 2:37 PM EDT Specimen requisition ordered. ??Separate Pathology report to follow Elizabeth Barkley MD PATHOLOGY/CYTOLOG Y ORDERABLES [facility] [place] [address] * Surgical Pathology Report (11/20/2017 2:31 PM EDT) Pathologist [facility] Final Diagnosis [id number] ? Location: 4T; EA06; A The signing [...] ??11/22/2017 ?Pathologist Performed at: ??-[facility] [place]. [place]ology, [place], [place] CLINICAL INFORMATION Specimen Submitted: A - [...] ng: (T1) ??ejr 11/22/2017 3:01 PM EDT [facility] GI Biopsy 11/20/2017 2:31 PM EDT 11/20/2017 2:31 PM EDT GI Biopsy 11/20/2017 2:31 PM EDT 11/20/2017 2:31 PM EDT GI Biopsy 11/20/2017 2:31 PM EDT 11/20/2017 2:31 PM EDT GI Biopsy 11/20/2017 2:31 PM EDT 11/20/2017 2:31 PM EDT Elizabeth Barkley MD PATHOLOGY/CYTOLOG Y ORDERABLES [facility] [place] [address] * UPPER GI ENDOSCOPY (11/20/2017 2:07 PM EDT) UPPER GI ENDOSCOPY [facility] Endoscopy ___ Procedure Date: 11/20/2017 2:07 PM ? Patient Name: Samira Ascencio ? N: [id number] ? Date of : 1975 ? Age: 42 ? Order #: [id number] ? Instrument Name: [id number] ? ___ Procedure: ? Upper GI endoscopy [...] on filedocumented in this encounter Care Teams Medical Accountant Relationship Specialty Start Date End Date José Luis Cornejo PA [address] [place] [address] PCP - General Family Medicine 05/29/16 12/30/19 documented as of this encounter
--- OUTSIDE RECORDS SUMMARY | 2023-12-21 00:18 | XMS_ITS | Encounter Summary ---
Author Organization [facility] [place] [address] Care Team Providers Care Dredge Runner Name Role Phone José Luis Cornejo Primary Care Provider [phone]- [phone] Reason for Visit * Reason Onset Date Comments Appointment 08/21/2018 Encounter Details Date Type Department Care Team (Late st Contact Info) Description 08/21/2018 [place] [id number] Salvatore Vela Appointment Social History Tobacco Use [...] on filedocumented in this encounter Care Teams Dredge Runner Relationship Specialty Start Date End Date José Luis Cornejo PA [address] [place] [address] PCP - General Family Medicine 05/29/16 12/30/19 documented as of this encounter
--- OUTSIDE RECORDS SUMMARY | 2023-12-21 00:18 | XMS_ITS | Encounter Summary ---
Author Organization [facility] [place] [address] Care Team Providers Care Chassis Mechanic Name Role Phone Watson Khalil MD Primary Care Provider [phone] Reason for Visit * Reason Comments Skin Check Encounter Details Date Type Department Care Team (Late st Contact Info) Description 11/07/2011 10:45 AM EDT [place] [address] Jolanta Ruth MD [facility] [place] [address] Jolanta Lucas MD [facility] [place] [address] Melasma (Primary Dx) Discharge Disposition: Home Social [...] 36 y.o. year old female.Established patient of [facility]. She is here today for melasma follow [...] for review and changes: Jolanta Ruth MD Digital Marketing Project Manager of Dermatology Department of Surgery [facility] documented in this encounter Plan of Treatment Not on file documented as of this encounter Visit Diagnoses Diagnosis Melasma- Primary Other dyschromia documented in this encounter Care Teams Chassis Mechanic Relationship Specialty Start Date End Date Watson Khalil MD [address] [place] [address] PCP - General 04/05/10 05/28/16 documented as of this encounter
--- OUTSIDE RECORDS SUMMARY | 2023-12-21 00:18 | XMS_ITS | Encounter Summary ---
Author Organization [facility] [place] [address] Care Team Providers Care Ehs Teacher Name Role Phone None Primary Care Provider Unavailabl e Reason for Referral * Consultation (Routine) - Closed Specialty Diagnoses / Procedures Referred By Emely alvarenga Referred To Contact Dermatology Diagnoses Papule of skin Sangeeta Velasco APRN [address] [place] [address] [facility] Dermatology [address] [place] [address] Referral ID Status Reason Start Date Expiration Date V isits Requested Visits Authorized [id number] Closed Consult, Test & Treat PCP Updated and/or Approved 06/08/2023 06/07/2024 1 1 Encounter Details Date Type Department Care Team (Late st Contact Info) Description 06/08/2023 Transcribe Orders eDH Incoming Referrals [phone] Sangeeta Velasco APRN [address] [place], [place] [id number] Papule of skin Social History Tobacco Use [...] skin documented in this encounter Care Teams Ehs Teacher Relationship Specialty Start Date End Date None None PCP - General 06/08/23 09/04/23 documented as of this encounter
--- OUTSIDE RECORDS SUMMARY | 2023-12-21 00:18 | XMS_ITS | Encounter Summary ---
Author Organization [facility] [place] [address] Care Team Providers Care Retail Sales Lead Name Role Phone José Luis Cornejo Primary Care Provider +[phone]- [phone] Encounter Details Date Type Department Care Team [...] on filedocumented in this encounter Care Teams Retail Sales Lead Relationship Specialty Start Date End Date José Luis Cornejo PA [address] [place] [address] PCP - General Family Medicine 09/05/23 documented as of this encounter
--- OUTSIDE RECORDS SUMMARY | 2023-12-21 00:18 | XMS_ITS | Referral Summary ---
Author Organization [facility] Address [address] [place] [address] Care Team Providers Care Well Driller Helper Name Role Phone Watson Khalil MD Primary Care Provider [phone] Social History Tobacco Use Types Packs/Day Years Used Date Smoking Tobacco: Never Assessed Sex and Gender Information Value Date Recorded Sex Assigned at Not on file Gender Identity Not on file Sexual Orientation Not on file Plan of Treatment Not on file Care Teams Well Driller Helper Relationship Specialty Start Date End Date Watson Khalil MD [address] [place] [address] PCP - General 02/18/13
--- OUTSIDE RECORDS SUMMARY | 2023-12-21 00:18 | XMS_ITS | Encounter Summary ---
[place] [address] Care Team Providers Care Manufacturing Machine Operator Name Role Phone José Luis Cornejo Primary Care Provider [phone]- [phone] Encounter Details Date Type Department Care Team (Late st Contact Info) Description 05/27/2019 Tele[place] [address] Serena Carter RN Social History [...] on filedocumented in this encounter Care Teams Manufacturing Machine Operator Relationship Specialty Start Date End Date José Luis Cornejo PA [address] [place] [address] PCP - General Family Medicine 05/29/16 12/30/19 documented as of this encounter
--- OUTSIDE RECORDS SUMMARY | 2023-12-21 00:18 | XMS_ITS | Encounter Summary ---
Author Organization [facility] Address [facility] [place] [address] Care Team Providers Care Operational Review Sergeant Name Role Phone José Luis Cornejo Primary Care Provider +1- [phone] Encounter Details Date Type Department Care Team (Late st Contact Info) Description 08/15/2016 9:30 AM EDT - 08/15/2016 10:15 AM EDT [place] [address] Elizabeth Barkley MD [facility] [place] [address] COLONOSCOPY, DIAGNOSTIC (WRVU 3.26) Social History Tobacco [...] occurs please contact your M.D. Please call [phone] before 5 pm with problems, questions or concerns. After 5pm call [phone] and ask to speak with the behavioral health associate nurse monitoring. Discharge instructions reviewed with patient who expresses understanding. * Attachments The following attachments cannot be sent through Care Everywhere. * COLONOSCOPY: POST-OP (COMORAN) documented in this encounter Medications at Time [...] sedation) Elizabeth Barkley MD Gastroenterology attending Pager [phone] documented in this encounter Plan of Treatment [...] Report (08/15/2016 10:33 AM EDT) Final Diagnosis [id number] ?Location: ; [facility]; The signing pathologist has (i) examined the [...] ing: (T1) ??ejr 08/18/2016 1:[address] [facility] GI Biopsy 08/15/2016 10:3 3 AM EDT 08/15/2016 10:33 AM EDT GI Biopsy 08/15/2016 10:3 3 AM EDT 08/15/2016 10:33 AM EDT Elizabeth Barkley MD PATHOLOGY/CYTOLOG Y ORDERABLES Performing Organization Address City/[facility]/[place] [address] * Specimen to Pathology (surgical or derm) (08/15/2016 10:33 AM EDT) AP Specimen 08/15/2016 10:3 3 AM EDT 08/15/2016 10:[address] [facility] - 08/15/2016 10:33 AM EDT Specimen requisition ordered. ??Separate Pathology report to follow Elizabeth Barkley MD PATHOLOGY/CYTOLOG Y ORDERABLES Performing Organization Address [facility] [place] [address] * Specimen to Pathology (surgical or derm) (08/15/2016 10:33 AM EDT) AP Specimen 08/15/2016 10:3 3 AM EDT 08/15/2016 10:[address] [facility] - 08/15/2016 10:33 AM EDT Specimen requisition ordered. ??Separate Pathology report to follow Elizabeth Barkley MD PATHOLOGY/CYTOLOG Y ORDERABLES Performing Organization Address [facility] [place] [address] * COLONOSCOPY (08/15/2016 9:38 AM EDT) COLONOSCOPY [facility] Endoscopy ___ Procedure Date: 08/15/2016 9:38 AM ? Patient Name: Samira Snider ? Date of : 1975 ? Age: 41 ? Order #: [id number] ? Instrument Name: [id number] ? ___ Procedure: ? Colonoscopy Indications: ? Hematochezia, Diarrhea (intermittent) Providers: ? Elizabeth Barkley MD, Seble Forbes, ? RN, Bianca Rubi, Electrophysiology Technologist Referring MD: ?CEM Bell Medicines: ? An [...] preparation was evaluated using ? the BBPS ([place] Bowel Preparation ? Scale) with scores of: [...] UPPER GI ENDOSCOPY (08/15/2016 9:37 AM EDT) [facility] UPPER GI ENDOSCOPY [facility] Endoscopy Procedure Date: 08/15/2016 9:37 AM ? Patient Name: Samira Snider ? [facility]: [id number] ? Date of : 1975 ? Age: 41 ? Order #: [id number] ? Instrument Name: [id number] ? Procedure: ? Upper GI endoscopy Indications: ? Epigastric abdominal pain, ? post-prandial abdominal bloating and ? gas Providers: ? Elizabeth Barkley MD, Seble Forbes, ? RN, Bianca Rubi, Electrophysiology Technologist Referring : ?CEM Bell Medicines: ? Midazolam [...] GENERAL SURGICAL ORD ERABLES Performing Organization Address City/State/[facility] Co de Phone Number [employer] documented in [...] sedation) documented in this encounter Care Teams Operational Review Sergeant Relationship Specialty Start Date End Date José Luis Cornejo PA [address] [place] [address] PCP - General Family Medicine 05/29/16 12/30/19 documented as of this encounter
--- OUTSIDE RECORDS SUMMARY | 2023-12-21 00:18 | XMS_ITS | Encounter Summary ---
Author Organization [facility] Address [facility] [place] [address] Care Team Providers Care Doffer Name Role Phone José Luis Cornejo Primary Care Provider +1- [phone] Reason for Visit * Reason Comments Follow-up Encounter Details Date Type Department Care Team (Late st Contact Info) Description 02/17/2019 4:40 PM EDT Office [place] [address] Tila Grande MD [facility] [place] [address] Retraction pocket of tympanic membrane of right [...] Surgery Tila Grande MD 02/17/19 5:06 PM [place] [address] Office Patient Name: Samira Ascencio Date of [...] azelastine (ASTELIN) 137 mcg (0.1 %) Aerosol, [place] 1 spray by Nasal route 2 times [...] DIAGNOSTIC performed by Elizabeth Barkley MD at [facility] ENDOSCOPY ??? PRO UPPER GI ENDOSCOPY, DIAGNOSTIC N/A 08/15/2016 EGD, UPPER GI ENDOSCOPY performed by Elizabeth Barkley MD at [facility] ENDOSCOPY ??? PRO UPPER GI ENDOSCOPY, DIAGNOSTIC N/A 11/20/2017 EGD, UPPER GI ENDOSCOPY performed by Elizabeth Barkley MD at [facility] ENDOSCOPY Family and Social History Family History: No family history on file. Social History: Lives in [place] [address] Social History Socioeconomic History ??? Marital status: [...] file Gets together: Not on file Attends alevism service: Not on file Active member of [...] again discussed the option of surgery for shelter benefits, which in her case I would [...] media documented in this encounter Care Teams Doffer Relationship Specialty Start Date End Date José Luis Cornejo PA [address] [place] [address] PCP - General Family Medicine 05/29/16 12/30/19 documented as of this encounter
--- OUTSIDE RECORDS SUMMARY | 2023-12-21 00:18 | XMS_ITS | Encounter Summary ---
Author Organization [facility] Address [address] [place] [address] Care Team Providers Care Slip Dumper Name Role Phone Watson Khalil MD Primary Care Provider [phone] Encounter Details Date Type Department Care Team (Late st Contact Info) Description 03/22/2015 Results Only [facility] [phone] Carmen Wadsworth MD [address] [place] [address] [place] [address] Social History Tobacco Use Types Packs/Day Years [...] ? SAMIRA SNIDER ? Accession #: ? [id number] ? : ? 1975 (Age: 39) ??F [...] Bassett 03/23/2015 10:53 AM End of Report [facility] 03/22/2015 9:32 EST 03/23/2015 9:32 EST Carmen Wadsworth MD PATHOLOGY ORDERABLES [facility] [address] [place] [address] documented in this encounter Visit Diagnoses Not on filedocumented in this encounter Care Teams Slip Dumper Relationship Specialty Start Date End Date Watson Khalil MD [address] [place] [address] PCP - General 02/18/13 documented as of this encounter
--- OUTSIDE RECORDS SUMMARY | 2023-12-21 00:18 | XMS_ITS | Encounter Summary ---
Author Organization [facility] [place] [address] Care Team Providers Care Test Automation Architect Name Role Phone José Luis Cornejo Primary Care Provider +1- [phone] Reason for Visit * Surgical (Routine) - Specialty Diagnoses / Procedures Referred By Contac t Referred To Contact Gastroenterology Diagnoses flatulence Procedures lactulose breath test Winifred Coulter, [address] [place] [address] [facility] Gastro [address] [place] [address] Referral ID Status Reason Start Date Expiration Date V isits Requested Visits Authorized [id number] 11/01/2018 11/01/2019 1 1 Encounter Details Date Type Department Care Team (Latest Contact Info) Description 12/11/2018 1:00 PM EDT Procedure [place] [address] Bloating; Small intestinal bacterial overgrowth Social History [...] Breath Testing in Gastrointestinal Disorders: The [place] Consensus (Am J Gastroenterol 2017; 112(5):775-84. Apositive breath test is defined as a rise in hydrogen production >20 ppm compared to baseline within 90 minutes. Methane-positive is defined by at least 10 ppm production of methane. Signed, Khloe Norris APRN Gastroenterology [place] [address] P: [phone] F: [phone] Copy: CEM Garcia documented in this encounter Plan of Treatment Not on file documented as of this encounter Visit Diagnoses Diagnosis Bloating Flatulence, eructation, and gas pain Small intestinal bacterial overgrowth documented in this encounter Care Teams Test Automation Architect Relationship Specialty Start Date End Date José Luis Cornejo PA [address] [place] [address] PCP - General Family Medicine 05/29/16 12/30/19 documented as of this encounter
--- OUTSIDE RECORDS SUMMARY | 2023-12-21 00:18 | XMS_ITS | Encounter Summary ---
Author Organization [facility] [place] [address] Care Team Providers Care Plant Engineering Manager Name Role Phone José Luis Cornejo Primary Care Provider [phone]- [phone] Reason for Referral * Audiology Exam (Routine) - Closed Specialty Diagnoses / Procedures Referred By Emely alvarenga Referred To Contact Audiology Diagnoses Hearing loss, unspecified hearing loss type, unspecified laterality Tila Grande MD [facility] [place] [address] Riri Cole AUD [facility] [place] [address] Referral ID Status Reason Start Date Expiration Date V isits Requested Visits Authorized [id number] Closed Consult, Test & Treat 08/23/2018 08/23/2019 1 1 Reason for Visit * Reason Comments Other pain and pressure in both ears, ears feel full, no hearing test as an adult * Consultation (Routine) - Closed Specialty Diagnoses / Procedures Referred By Emely alvarenga Referred To Contact Otolaryngology Diagnoses Other specified disorders of right middle ear and mastoid Winifred Coulter, RUFUS [address] [place] [address] Tila Grande MD [facility] [place] [address] Referral ID Status Reason Start Date Expiration Date Visits Re quested Visits Authorized [id number] Closed 08/21/2018 08/21/2019 1 1 Encounter Details Date Type Department Care Team (Late st Contact Info) Description 08/21/2018 3:40 PM EDT Office [place] [address] Tila Grande MD [facility] [place] [address] Eustachian tube dysfunction, bilateral; Chronic rhinitis; Hearing [...] Grande MD - 08/21/2018 3:40 PM EDT [facility] Otolaryngology - Head and Neck Surgery Tila Grande MD 08/21/18 4:10 PM [place], [place] [address] Office Patient Name: Samira Ascencio Date of [...] performed by Elizabeth Barkley MD at [facility] ENDOSCOPY ??? PRO UPPER GI ENDOSCOPY, DIAGNOSTIC N/A 08/15/2016 EGD, UPPER GI ENDOSCOPY performed by Elizabeth Barkley MD at [facility] ENDOSCOPY ??? PRO UPPER GI ENDOSCOPY, DIAGNOSTIC N/A 11/20/2017 EGD, UPPER GI ENDOSCOPY performed by Elizabeth Barkley MD at [facility] ENDOSCOPY Family and Social History Family History: No family history on file. Social History: Lives in [place] [address] Social History Socioeconomic History ??? Marital status: [...] file Gets together: Not on file Attends jewish service: Not on file Active member of [...] laterality documented in this encounter Care Teams Plant Engineering Manager Relationship Specialty Start Date End Date José Luis Cornejo PA [address] [place] [address] PCP - General Family Medicine 05/29/16 12/30/19 documented as of this encounter
--- OUTSIDE RECORDS SUMMARY | 2023-12-21 00:18 | XMS_ITS | Encounter Summary ---
Author Organization [facility] Address [facility] [place] [address] Care Team Providers Care Warehouse Representative Name Role Phone José Luis Cornejo Primary Care Provider +1- [phone] Reason for Visit * Consultation (Routine) - Closed Specialty Diagnoses / Procedures Referred By Emely alvarenga Referred To Contact Dermatology Diagnoses Papule of skin Sangeeta Velasco, STRADDLE TRUCK OPERATOR [address] [place] [address] [facility] Dermatology [address] [place] [address] Referral ID Status Reason Start Date Expiration Date V isits Requested Visits Authorized [id number] Closed Consult, Test & Treat PCP Updated and/or Approved 06/08/2023 06/07/2024 1 1 Encounter Details Date Type Department Care Team (Late st Contact Info) Description 09/05/2023 9:40 AM EDT Office Visit Dermatology at [facility] [address] [place] [address] Cullen Capone MD [facility] [address] [place] [address] Multiple benign melanocytic nevi of upper and [...] this encounter Progress Notes * Harjeet Dan, SOAKER - 09/05/2023 9:40 AM EDT Images from [...] relevant family history N Social History 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 I performed the above scribed service and agree with the accuracy of the documentation in this encounter. Reviewed and signed by: Cullen Capone MD Dermatology [facility] documented in this encounter Plan of Treatment Not on file documented as of this encounter Visit Diagnoses Diagnosis Multiple benign melanocytic nevi of upper and lower extremities and trunk Lentigines Other dyschromia Seborrheic keratoses Young angioma Nevus, non-neoplastic Seborrheic dermatitis Seborrheic dermatitis, unspecified documented in this encounter Care Teams Warehouse Representative Relationship Specialty Start Date End Date José Luis Cornejo PA [address] [place] [address] PCP - General Family Medicine 09/05/23 documented as of this encounter
--- OUTSIDE RECORDS SUMMARY | 2023-12-21 00:18 | XMS_ITS | Clinical Summary ---
Author Organization [place] [address] Care Team Providers Care Senior Logistics Manager Name Role Phone José Luis Cornejo Primary Care Provider +1- [phone] Allergies No known active allergies Medications Medication [...] COLONOSCOPY (08/15/2016 9:38 AM EDT) COLONOSCOPY [facility] Endoscopy ___ Procedure Date: 08/15/2016 9:38 AM ? Patient Name: Samira Snider ? Date of : 1975 ? Age: 41 ? Order #: [id number] ? Instrument Name: [id number] ? ___ Procedure: ? Colonoscopy Indications: ? Hematochezia, Diarrhea (intermittent) Providers: ? Elizabeth Barkley MD, Seble Forbes, ? RNBianca, Senior Compliance Analyst Referring MD: ?CEM Bell Medicines: ? An [...] preparation was evaluated using ? the BBPS ([place] Bowel Preparation ? Scale) with scores of: [...] Recently Relevant to Health Maintenance Care Teams Senior Logistics Manager Relationship Specialty Start Date End Date José Luis Cornejo PA [address] [place], [place] [address] PCP - General Family Medicine 09/05/23
--- OUTSIDE RECORDS SUMMARY | 2023-12-21 00:18 | XMS_ITS | Encounter Summary ---
Author Organization [facility] [place] [address] Care Team Providers Care Rigger Chief Name Role Phone Unknown Primary Care Provider Unavailabl e Reason for Referral * Diagnostic Test (Routine) - Closed Specialty Diagnoses / Procedures Referred By Contac t Referred To Contact Radiology Diagnoses Family history of ischemic heart disease Procedures CT Heart For Coronary Calcium wo Contrast (Prepaid) Winifred Coulter ND [address] [place] [address] [facility] [place] [address] Referral ID Status Reason Start Date Expiration Date V isits Requested Visits Authorized [id number] Closed Specialty Service Requested 03/10/2022 09/09/2023 1 1 Reason for Visit * Diagnostic Test (Routine) - Closed Specialty Diagnoses / Procedures Referred By Contac t Referred To Contact Radiology Diagnoses Family history of ischemic heart disease Procedures CT Heart For Coronary Calcium wo Contrast (Prepaid) Winifred Coulter ND [address] [place] [address] [facility] [place] [address] Referral ID Status Reason Start Date Expiration Date V isits Requested Visits Authorized [id number] Closed Specialty Service Requested 03/10/2022 09/09/2023 1 1 Encounter Details Date Type Department Care Team (Latest Contact Info) Description 04/21/2022 2:53 PM EST - 04/21/2022 11:59 PM EST Hospital [place] [address] Yfn Winifred M, ND [address] [place] [address] Family history of ischemic heart disease Discharge [...] azelastine (ASTELIN) 137 mcg (0.1 %) Aerosol, [place] 1 spray by Nasal route 2 times [...] who have questions please contact the health after school caregiver that requested your imaging first. ? Electronically signed by: Antonia Starr MD, [facility] ([phone]), at 04/23/2022 8:22 AM Narrative 04/23/2022 8:22 AM EST EXAMINATION: CT HEART FOR CORONARY CALCIUM WO CONTRAST (PREPAID) CLINICAL HISTORY: Family history of ischemic heart disease and other diseases of the circulatory system COMPARISON: None. TECHNIQUE: 3.0 mm thick axial contiguous sections through the heart were obtained via ECG-gated axial mode acquisition without intravenous contrast. Craniocaudal coverage and dwtul-pc-pjas were restricted to the heart. Post-processing was [...] mode acquisition without intravenouscontrast. Craniocaudal coverage and tzyct-vx-ffvm were restricted to the heart. Post-processing was [...] age,race/ethnicity, and gender: 13% Reference: Celina RL, Briceon H, Lizbeth R, et al. ??Distribution ofcoronary [...] patients who have questions please contactthe health after school caregiver that requested your imaging first. Electronically signed by: Antonia Starr MD, [facility] ([phone]), at 04/23/2022 8:22 AM Winifred Coulter ND IMG CT ORDERABLES documented in this encounter Visit Diagnoses Diagnosis Family history of ischemic heart disease documented in this encounter Care Teams Rigger Chief Relationship Specialty Start Date End Date Unknown None PCP - General 12/31/19 06/07/22 documented as of this encounter
--- OUTSIDE RECORDS SUMMARY | 2023-12-21 00:18 | XMS_ITS | Encounter Summary ---
Author Organization [facility] [place] [place] [address] Care Team Providers Care Sealing Machine Operator Name Role Phone José Luis Cornejo Primary Care Provider +1- [phone] Encounter Details Date Type Department Care Team (Late st Contact Info) Description 02/27/2019 Telephone [place] [address] Bong Pablo RN Social History Tobacco Use [...] if she had further questions. CHING Hollingsworth, custom protection officer Triage Nurse documented in this encounter Plan of Treatment Not on file documented as of this encounter Visit Diagnoses Not on filedocumented in this encounter Care Teams Sealing Machine Operator Relationship Specialty Start Date End Date José Luis Cornejo PA [address] [place] [address] PCP - General Family Medicine 05/29/16 12/30/19 documented as of this encounter
--- OUTSIDE RECORDS SUMMARY | 2023-12-21 00:18 | XMS_ITS | Encounter Summary ---
Author Organization [facility] [place] [address] Care Team Providers Care Senior Financial Analyst Name Role Phone Unknown Primary Care Provider [...] on filedocumented in this encounter Care Teams Senior Financial Analyst Relationship Specialty Start Date End Date Unknown None PCP - General 12/31/19 06/07/22 documented as of this encounter
--- OUTSIDE RECORDS SUMMARY | 2023-12-21 00:18 | XMS_ITS | Encounter Summary ---
Author Organization [facility] [place] [address] Care Team Providers Care Marketing Sales Representative Name Role Phone José Luis Cornejo Primary Care Provider +1- [phone] Encounter Details Date Type Department Care Team (Late st Contact Info) Description 05/27/2019 Tele[place] [address] Serena Carter RN Social History [...] on filedocumented in this encounter Care Teams Marketing Sales Representative Relationship Specialty Start Date End Date José Luis Cornejo PA [address] [place] [address] PCP - General Family Medicine 05/29/16 12/30/19 documented as of this encounter
--- OUTSIDE RECORDS SUMMARY | 2023-12-21 00:18 | XMS_ITS | Encounter Summary ---
Author Organization [facility] Address [address] [place] [address] Care Team Providers Care Crew Chief Name Role Phone Watson Khalil MD Primary Care Provider Encounter Details Date Type Department Care Team (Latest Contact Info) Description 03/22/2015 7:57 EST - 03/22/2015 23:59 EST Hospital Encounter [address] [address] Unknown, Provider, Discharge Disposition: Home or Self Care Social History Tobacco Use Types Packs/Day Years Used Date Smoking Tobacco: Never Assessed Sex and Gender Information Value Date Recorded Sex Assigned at Not on file Gender Identity Not on file Sexual Orientation Not on file documented as of this encounter Discharge Disposition Disposition Code Departure Means Destination Home or Self [facility] documented in this encounter Plan of Treatment Not on file documented as of this encounter Visit Diagnoses Not on filedocumented in this encounter Care Teams Crew Chief Relationship Specialty Start Date End Date Watson Khalil MD [address] [place] [address] PCP - General 02/18/13 documented as of this encounter
--- OUTSIDE RECORDS SUMMARY | 2023-12-21 00:18 | XMS_ITS | Encounter Summary ---
Author Organization [facility] [place] [address] Care Team Providers Care Drywall Finisher Foreman Name Role Phone Winifred Coulter ND Primary Care Provider +1- [phone] Encounter Details Date Type Department Care Team (Late st Contact Info) Description 06/08/2022 Telephone [place] [address] Josee Godwin Social History Tobacco Use Types [...] on filedocumented in this encounter Care Teams Drywall Finisher Foreman Relationship Specialty Start Date End Date Winifred Coulter ND PCP - General Naturopathic Medicine 06/08/22 06/07/23 documented as of this encounter
--- OUTSIDE RECORDS SUMMARY | 2023-12-21 00:18 | XMS_ITS | Encounter Summary ---
Author Organization [facility] [place] [address] Care Team Providers Care Labelling Machine Operator Name Role Phone José Luis Cornejo Primary Care Provider +1- [phone] Reason for Visit * Reason Onset Date Comments Questions 02/26/2019 Encounter Details Date Type Department Care Team (Late st Contact Info) Description 02/26/2019 Telephone [place] [address] Romain Barreto Questions Social History Tobacco Use [...] on filedocumented in this encounter Care Teams Labelling Machine Operator Relationship Specialty Start Date End Date José Luis Cornejo PA [address] [place] [address] PCP - General Family Medicine 05/29/16 12/30/19 documented as of this encounter
--- OUTSIDE RECORDS SUMMARY | 2023-12-21 00:18 | XMS_ITS | Encounter Summary ---
Author Organization [facility] [place] [address] Care Team Providers Care Fisher Spear Name Role Phone José Luis Cornejo Primary Care Provider [phone] Reason for Visit * Auth/Cert Specialty Diagnoses / Procedures Referred By Contac t Referred To Contact Diagnoses epigastric abdominal pain Procedures PRO UPPER GI ENDOSCOPY, DIAGNOSTIC EGD, UPPER GI ENDOSCOPY Referral ID Status Reason Start Date Expiration Date Visits Re quested Visits Authorized [id number] 1 1 Encounter Details Date Type Department Care Team (Late st Contact Info) Description 11/20/2017 2:08 PM EDT Anesthesia Event [place] [address] Vincent Mejia MD [facility] DR [place] [address] Albert Larsen, [facility] [address] [place] [address] Anesthesia Record Procedure Summary Procedure Name Responsible [...] IV Line - Single Lumen 11/20/17; 1405; qdyb-eyw-mabfre catheter system; 20 gauge; Nia Wang RN; [...] Mejia MD - 11/20/2017 8:31 PM EDT [facility] Department of Anesthesiology Post-procedure Note Patient: Samira Ascencio Procedure Summary Date Anesthesia Start Anesthesia Stop Room / Location 11/20/17 1408 1451 [facility] END[facility] 2 / [facility] Procedure Diagnosis Surgeon Responsible Provider EGD, UPPER GI ENDOSCOPY (N/A Trunk) (epigastric abdominal pain ) Elizabeth Barkley MD Koff, Matthew D, MD All Anesthesia Providers: Anesthesiologist: Vincent Mejia MD HIGH SCHOOL GUIDANCE COUNSELOR: Albert Larsen CRNA Most Recent Vitals: 11/20/17 [...] DIAGNOSTIC performed by Elizabeth Barkley MD at [facility] ENDOSCOPY ??? PRO UPPER GI ENDOSCOPY, DIAGNOSTIC N/A 08/15/2016 EGD, UPPER GI ENDOSCOPY performed by Elizabeth Barkley MD at [facility] ENDOSCOPY Social History Substance Use Topics [...] with patient and mother. Plan discussed with HIGH SCHOOL GUIDANCE COUNSELOR. PAT Staff Note documented in this encounter [...] mg documented in this encounter Care Teams Fisher Spear Relationship Specialty Start Date End Date José Luis Cornejo PA [address] [place] [address] PCP - General Family Medicine 05/29/16 12/30/19 documented as of this encounter
--- OUTSIDE RECORDS SUMMARY | 2023-12-21 00:18 | XMS_ITS | Encounter Summary ---
Author Organization [facility] Address [address] [place] [address] Care Team Providers Care Head Of Operation And Logistics Name Role Phone Unavailable Primary Care Provider Unavailabl e Encounter Details Date Type Department Care Team (Late st Contact Info) Description 06/30/2010 Results Only [facility] Laboratory Services - [facility] [place] [address] [place], [place] [address] Jaylin Bell, [facility] [address] [place] [phone] Social History Tobacco Use Types Packs/Day Years [...] ? SAMIRA SNIDER ? Accession #: ? [id number] ? : ? 1975 (Age: 35) ??F ?Collect Date: ? 06/30/2010 ? Location: ? [facility] ? Receive Date: ? 07/01/2010 ? Provider: ?JAYLIN SHRUTHI PSYCHOLOGICAL SCIENCE PROFESSOR ? Copy to: ? Specimen/Source: ?Pap Test, [...] ? KINGA GALEANA 06/30/2010 07/01/2010 Jaylin Bell PSYCHOLOGICAL SCIENCE PROFESSOR PATHOLOGY ORDERABLES KINGA GALEANA [address] [place] [address] documented in this encounter Visit Diagnoses Not on filedocumented in this encounter
--- OUTSIDE RECORDS SUMMARY | 2023-12-21 00:18 | XMS_ITS | Encounter Summary ---
Author Organization [facility] Address [address] [place] [address] Care Team Providers Care Guncotton Packer Name Role Phone Watson Khalil MD Primary Care Provider [phone] Encounter Details Date Type Department Care Team (Late st Contact Info) Description 12/22/2013 Results Only [facility] Laboratory Services - [facility] ([facility] [address] [place], [place] [address] Jaylin Bell, [facility] [address] [place] [phone] Social History Tobacco Use Types Packs/Day Years [...] Name: ? SNIDERSAMIRA ? Accession #: ? [id number] ? : ? 1975 (Age: 38) ??F ?Collect Date: ? 12/22/2013 ? Location: ? [facility] ? Receive Date: ? 12/23/2013 ? Provider: JAYLIN BELL COMMODITIES TRADER Copy to: WATSON KHALIL MD ? Final [...] 33,35,39,45,51,52, 56,58,59,66, and 68 is detected by blackjack supervisor mediated amplification. High and intermediate risk HPV [...] [facility] 12/22/2013 12/23/2013 Jaylin Bell COMMODITIES TRADER PATHOLOGY ORDERABLES Performing Organization Address City/State/[facility] Co de Phone Number [facility] [address] [place] [address] documented in this encounter Visit Diagnoses Not on filedocumented in this encounter Care Teams Guncotton Packer Relationship Specialty Start Date End Date Watson Khalil MD [address] [place] [address] PCP - General 02/18/13 documented as of this encounter
--- OUTSIDE RECORDS SUMMARY | 2023-12-21 00:18 | XMS_ITS | Clinical Summary ---
Author Organization [facility] Address [address] [place] [address] Care Team Providers Care Drip Pumper Name Role Phone Watson Khalil MD Primary Care Provider [phone] Social History Tobacco Use Types Packs/Day Years [...] COVID-19 Vaccine ( season) 2023 Care Teams Drip Pumper Relationship Specialty Start Date End Date Watson Khalil MD [address] [place] [address] PCP - General 02/18/13
--- OUTSIDE RECORDS SUMMARY | 2023-12-21 00:18 | XMS_ITS | Encounter Summary ---
[place] [address] Care Team Providers Care Damper Worker Name Role Phone José Lius Cornejo Primary Care Provider [phone] Encounter Details Date Type Department Care Team (Late st Contact Info) Description 11/18/2018 11:00 AM EDT Office Visit Audiology at [address] [address] Riri Cole AUD [facility] [place] [address] Type C tympanogram of right ear; Sensation [...] of this encounter Progress Notes * Riri Cole AUD - 11/18/2018 11:00 AM EDT AUDIOLOGIC EVALUATION Samira Ascencio was seen on 11/18/2018 for an audiologic evaluation as medically indicated in conjunction with Dr Grande in otolaryngology. Please refer to the scanned audiogram listed under Procedures for findings, impressions and recommendations. Woo Tripp, [facility] [place] [address] documented in this encounter Plan of Treatment [...] left documented in this encounter Care Teams Damper Worker Relationship Specialty Start Date End Date José Luis Cornejo PA [address] [place] [address] PCP - General Family Medicine 05/29/16 12/30/19 documented as of this encounter
--- OUTSIDE RECORDS SUMMARY | 2023-12-21 00:18 | XMS_ITS | Encounter Summary ---
[place] [address] Care Team Providers Care Air Bag Builder Name Role Phone José Lusi Cornejo Primary Care Provider [phone] Encounter Details Date Type Department Care Team (Late st Contact Info) Description 03/17/2019 Telephone [place] [address] Bong Pablo RN Social History [...] no other questions or concerns. CHING Hollingsworth, photographer scientific Triage Nurse documented in this encounter Plan of Treatment Not on file documented as of this encounter Visit Diagnoses Not on filedocumented in this encounter Care Teams Air Bag Builder Relationship Specialty Start Date End Date José Luis Cornejo PA [address] [place] [address] PCP - General Family Medicine 05/29/16 12/30/19 documented as of this encounter
--- OUTSIDE RECORDS SUMMARY | 2023-12-21 00:18 | XMS_ITS | Encounter Summary ---
Author Organization [facility] Address [facility] [place] [address] Care Team Providers Care Inside Phone Sales Name Role Phone José Luis Cornejo Primary Care Provider [phone] Reason for Visit * Reason Comments Other still symptomatic bu t a little bit better * Audiology Exam (Routine) - Closed Specialty Diagnoses / Procedures Referred By Emely alvarenga Referred To Contact Audiology Diagnoses Hearing loss, unspecified hearing loss type, unspecified laterality Tila Grande MD [facility] [place] [address] Riri Cole AUD [facility] [place] [address] Referral ID Status Reason Start Date Expiration Date V isits Requested Visits Authorized [id number] Closed Consult, Test & Treat 08/23/2018 08/23/2019 1 1 Encounter Details Date Type Department Care Team (Late st Contact Info) Description 11/18/2018 11:40 AM EDT Office [place] [address] Tila Grande MD [facility] [place] [address] Eustachian tube dysfunction, bilateral; Chronic rhinitis; Retraction [...] Grande MD - 11/18/2018 11:40 AM EDT [facility] Otolaryngology - Head and Neck Surgery Tila Grande MD 11/18/18 11:58 AM [place] [address] Office Patient Name: Samira Ascencio Date of [...] DIAGNOSTIC performed by Elizabeth Barkley MD at [facility] ENDOSCOPY ??? PRO UPPER GI ENDOSCOPY, DIAGNOSTIC N/A 08/15/2016 EGD, UPPER GI ENDOSCOPY performed by Elizabeth Barkley MD at [facility] ENDOSCOPY ??? PRO UPPER GI ENDOSCOPY, DIAGNOSTIC N/A 11/20/2017 EGD, UPPER GI ENDOSCOPY performed by Elizabeth Barkley MD at [facility] ENDOSCOPY Family and Social History Family History: No family history on file. Social History: Lives in [place] [address] Social History Socioeconomic History ??? Marital status: [...] file Gets together: Not on file Attends faith service: Not on file Active member of [...] ear documented in this encounter Care Teams Inside Phone Sales Relationship Specialty Start Date End Date José Luis Cornejo PA [address] [place] [address] PCP - General Family Medicine 05/29/16 12/30/19 documented as of this encounter
--- OUTSIDE RECORDS SUMMARY | 2023-12-21 00:18 | XMS_ITS | Encounter Summary ---
Author Organization [facility] Address [place] [id number] Care Team Providers Care Dictating Transcribing Machine Servicer Name Role Phone Watson Khalil MD Primary Care Provider [phone] Reason for Visit * Reason Comments Skin Lesion Encounter Details Date Type Department Care Team (Late st Contact Info) Description 05/04/2011 5:00 PM EST Office [place] [address] Jolanta Lucas MD [facility] [place] [address] Melasma (Primary Dx) Discharge Disposition: Home Social [...] - she will discuss with PCP or METAL LEAF LAYER. Rx: Retin-A 0.04% gel at bedtime as tolerated. Discussed strategies for decreasing irritation including using 30-45 minutes after washing at night, using pea-sized amount mixed with moisturizer, start 3x/week working up to nightly as tolerated. B.RTC 6 months Note initiated by: PENNIE MERCADO LPN Routed to physician for review and changes: Jolanta Ruth MD Track Subway Repair Supervisor of Dermatology Department of Surgery [facility] cc: WATSON KHALIL MD documented in this encounter Plan of Treatment Not on file documented as of this encounter Visit Diagnoses Diagnosis Melasma- Primary Other dyschromia documented in this encounter Care Teams Dictating Transcribing Machine Servicer Relationship Specialty Start Date End Date Watson Khalil MD [address] [place] [address] PCP - General 04/05/10 05/28/16 documented as of this encounter
--- OUTSIDE RECORDS SUMMARY | 2023-12-21 00:18 | XMS_ITS | Encounter Summary ---
Author Organization [facility] [address] Care Team Providers Care It Technical Specialist Name Role Phone José Luis Cornejo Primary Care Provider [phone] Reason for Visit * Reason Comments Follow-up patient is here for ear tube placement Encounter Details Date Type Department Care Team (Late st Contact Info) Description 03/10/2019 3:40 PM EDT Office [place] [address] [facility] [place] [address] Eustachian tube dysfunction, bilateral; Recurrent acute serous [...] Grande MD - 03/10/2019 3:40 PM EDT [facility] Otolaryngology - Head and Neck Surgery Tila Grande MD 03/10/19 4:26 PM [place], [place] [address] Office Patient Name: Samira Ascencio Date of [...] azelastine (ASTELIN) 137 mcg (0.1 %) Aerosol, [employer] 1 spray by Nasal route 2 times [...] DIAGNOSTIC performed by Elizabeth Barkley MD at [facility] ENDOSCOPY ??? PRO UPPER GI ENDOSCOPY, DIAGNOSTIC N/A 08/15/2016 EGD, UPPER GI ENDOSCOPY performed by Elizabeth Barkley MD at [facility] ENDOSCOPY ??? PRO UPPER GI ENDOSCOPY, DIAGNOSTIC N/A 11/20/2017 EGD, UPPER GI ENDOSCOPY performed by Elizabeth Barkley MD at [facility] ENDOSCOPY Family and Social History Family History: No family history on file. Social History: Lives in [place] [address] Social History Socioeconomic History ??? Marital status: [...] file Gets together: Not on file Attends holiness service: Not on file Active member of [...] media documented in this encounter Care Teams It Technical Specialist Relationship Specialty Start Date End Date José Luis Cornejo PA [address] [place] [address] PCP - General Family Medicine 05/29/16 12/30/19 documented as of this encounter
--- OUTSIDE RECORDS SUMMARY | 2023-12-21 00:18 | XMS_ITS | Encounter Summary ---
Author Organization [facility] Address [facility] [place] [address] Care Team Providers Care Paving Rammer Name Role Phone Watson Khalil MD Primary Care Provider [phone] Reason for Referral * Physical Therapy (Routine) - Complete - Patient Will Schedule External Appt Specialty Diagnoses / Procedures Referred By Emely t Referred To Contact Physical Therapy Diagnoses Impingement syndrome of shoulder Pain in joint, shoulder region Em Rodriguez PA [facility] [place] [address] Referral ID Status Reason Start Date Expiration Date Visits Requested Visits Authorized [id number] Complete - Patient Will Schedule External Appt Evaluate and Treat 12/05/2011 06/02/2012 12 12 Reason for Visit * Reason Comments Right Shoulder Pain DOI 07/2011 Encounter Details Date Type Department Care Team (Late st Contact Info) Description 12/05/2011 1:10 PM EDT Office Visit [place] [address] Rebecca Can MD [facility] [place] [address] Impingement syndrome of shoulder; Pain in joint, [...] plan documented above. Rebecca Can M.D., M.S. Patternmaker Wood of Orthopaedic Surgery Shoulder, Elbow, and Sports Medicine Department of Orthopaedic Surgery [place] [address] * Em Rodriguez PA - 12/05/2011 2:18 PM EDT PATIENT NAME: Samira Snider AGE: 36 y.o. MR#: [id number] DATE OF VISIT: 12/05/2011 DATE OF INJURY/ONSET: [...] or concerns. This dictation was performed using [employer] dictaction. I have attempted to edit the [...] region documented in this encounter Care Teams Paving Rammer Relationship Specialty Start Date End Date Watson Khalil MD [address] [place] [address] PCP - General 04/05/10 05/28/16 documented as of this encounter
--- OUTSIDE RECORDS SUMMARY | 2023-12-21 00:18 | XMS_ITS | Encounter Summary ---
Author Organization [facility] Address [address] [place] [address] Care Team Providers Care Clay Press Operator Name Role Phone Unavailable Primary Care Provider Unavailabl e Encounter Details Date Type Department Care Team (Late st Contact Info) Description 12/11/2011 Results Only [facility] Laboratory Services - [facility] ([facility]) [address] [place], [place] [address] Jaylin Bell, [facility] [address] [place] [address] Social History Tobacco Use Types [...] ? SAMIRA SNIDER ? Accession #: ? [id number] : ? 1975 (Age: 36) ??F ?Collect Date: ? 12/11/2011 Location: ? [facility] ? Receive Date: ? 12/12/2011 Provider: ?JAYLIN BELL AUTO BODY CUSTOMIZER Copy to: ?RACHID FERNÁNDEZ MD ? Specimen/Source: [...] Report KINGA GALEANA 12/11/2011 12/12/2011 Jaylin Bell AUTO BODY CUSTOMIZER PATHOLOGY ORDERABLES Performing Organization Address City/State/[facility] Co de Phone Number KINGA GALEANA [address] [place] [address] documented in this encounter Visit Diagnoses Not on filedocumented in this encounter
--- OUTSIDE RECORDS SUMMARY | 2023-12-21 00:18 | XMS_ITS | Encounter Summary ---
[place] [address] Care Team Providers Care E Commerce Developer Name Role Phone José Luis Cornejo Primary Care Provider [phone] Encounter Details Date Type Department Care Team (Late st Contact Info) Description 11/04/2018 Telephone Gastroenterology at [place] [id number] Serena Hickey Social History Tobacco Use Types [...] CLINICAL SAFETY CHECKLIST 11/04/2018 Serena Ascencio [address] [facility] [address] [id number] : 1975 REFERRING PROVIDER: Winifred Coulter PRIMARY [...] on filedocumented in this encounter Care Teams E Commerce Developer Relationship Specialty Start Date End Date José Luis Cornejo PA [address] [place] [address] PCP - General Family Medicine 05/29/16 12/30/19 documented as of this encounter
--- OUTSIDE RECORDS SUMMARY | 2023-12-21 00:18 | XMS_ITS | Encounter Summary ---
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 SAMIRA SNIDER ? Accession #: ? [id number] : ? 1975 (Age: 37) ??F ?Collect Date: ? 12/17/2012 Location: ? [facility] ? Receive Date: ? 12/18/2012 Provider: ?JAYLIN BELL SALES REPRESENTATIVE FACILITY SERVICES Copy to: ?RACHID FERNÁNDEZ MD ? Specimen/Source: [...] Report KINGA GALEANA 12/17/2012 12/18/2012 Jaylin Bell SALES REPRESENTATIVE FACILITY SERVICES PATHOLOGY ORDERABLES KINGA GALEANA [address] [place] [address] documented in this encounter Visit Diagnoses Not on filedocumented in this encounter
--- OUTSIDE RECORDS SUMMARY | 2023-12-21 00:18 | XMS_ITS | Encounter Summary ---
Author Organization [facility] [place] [address] Care Team Providers Care Rotoformer Backtender Name Role Phone Watson Khalil MD Primary Care Provider [phone] Reason for Visit * Reason Onset Date Comments Other 06/05/2011 Returned your ca ll Encounter Details Date Type Department Care Team (Late st Contact Info) Description 06/05/2011 Telephone Dermatology [place] [id number] Jolanta Lucas MD [facility] [address] Other (Returned your call) Social History Tobacco [...] can reach her on her cell # [phone]. Mary Beth Slade documented in this encounter Plan of Treatment Not on file documented as of this encounter Visit Diagnoses Not on filedocumented in this encounter Care Teams Rotoformer Backtender Relationship Specialty Start Date End Date Watson Khalil MD [address] [place], [place] [address] PCP - General 04/05/10 05/28/16 documented as of this encounter
--- OUTSIDE RECORDS SUMMARY | 2023-12-21 00:19 | XMS_ITS | Data Portability ---
Author Organization [place] - [facility] [employer], MAIN OFFICE Address [address] [place] [address] Assessment Encounter Date Assessment Date Assessment LastModified [...] also had billing discpencies- looking into with [facility] payments vs what was truly owed by patient and what was collected in office- will have bookkepper help on this- as it seems confusion Not available 06/25/2022 00:20:29 Plan of Treatment Reminders Order Date Submit Date Provider Last Modified By Organization Details Last Modified Time Details Appointments None recorde dMaricarmen Lab lipid panel, serum 2021 022 [facility] (Registration), [address] [place] [address] [place], [address], 3 05:01:23 iron + TIBC + ferriti n, serum 2021 022 [facility] (Registration), [address] [place] [address] [place], [address], 3 05:01:23 CBC 2021 022 [facility] (Registration), [address] [place] [address] [place], [address], 3 05:01:23 magnesi um, RBC 2022 023 [facility] (Registration), [address] [place] [address] [place], [address], 3 05:01:26 lipid panel, serum 2022 023 [facility] (Registration), [address] [place] [address] [place], [address], 3 05:01:26 apolipo protein B/apoli poprote in A1 ratio 2022 023 [facility] (Registration), [address] [place] [address] [place], [address], 3 05:01:26 iron + TIBC + ferriti n, serum 2022 023 [facility] (Registration), [address] [place] [address] [place], [address], 3 05:01:26 CBC w/ diff 2022 023 [facility] (Registration), [address] [place] [address] [place], [address], 3 05:01:26 phospho lizy, serum or plasma 2022 023 [facility] (Registration), [address] [place] [address] [place], [address], 3 05:01:26 Referral EGD referra l - Please- re-eval uate PT Tan s Esophag us and compare imaging [id number] workup 2022 023 [facility] (Egd), [address] [place], [address], 3 05:01:38 Procedures None recorde d. Surgeries None recorde d. Imaging CT, coronar y calcium score 2021 022 [facility], Radiology Dexa Scan / Bone Density, [place], [address], 3 05:00:55 Medication Orders None recorde d. [...] 12oz before meals 4. CAlcium- score test [facility]- track down latest lipid panel done at [facility]- or we will get at [facility] so we can access results more easily- handout for histamine rich foods given keep a stool log for next visit- stay in phase 2 until gas and bloat and constipation are corrected- night Not available 01/28/2022 15:08:32 03/02/2022 9514 tinnitus: care instructions Not available 03/03/2022 20:17:57 1. get lipid res ults from [facility] lab 2. Bp results at home/school email those to me- maybe 3 days of reading in arow 3. CT coronary calcium score- [facility] pay for it- doesnt get covered through [...] of sibiotic again- labs above- sent to [facility] this time and referral to [facility] for endoscopy/Tan's esophagus dx Continue on SIBO diet- call if need assistance with recipes etc Not available 07/08/2022 18:47:35 Reason for Referral ENT Referral for On examinat ion - fluid -middle ear Referring Physician: Sarahi Al[facility]ic Medicine, Encounter Date: 08/15/2018 EGD Referral for Tan's e sophagus Please- re-evaluate PT BArretts Esophagus and compare imaging [id number] workup Referring Physician: Sarahi Al[facility]athic Medicine, Encounter Date: 06/06/2022 Problems Name Status Onset Date Resolution Date Notes Provider Name and Address Organization Details Recorded Time Migraine without aura Active 018 Winifred Coulter ND [address] [place] [address], [address] , [facility]ly [facility] [place] [facility] 01/31/2018 14:43:50 Pruritic disorder Active 018 Winifred Coulter ND [address] [place] [address], [address] , [facility] 03/13/2018 16:30:52 Dietary management surveillance Active 018 Winifred Knights, [address], [address] , [place] [facility] 03/15/2018 10:35:22 Abdominal pain Active 018 Winifred Coulter, [address], [address] , [place] [facility] 03/16/2018 07:25:13 Flatulence, eructation and gas pain Active 018 Winifred Coulter, [address], [address] , [place] [facility] 03/16/2018 07:25:26 Chronic constipation Active 019 Winifred Coulter, [address], [address] , [facility] - [facility] 05/27/2018 09:10:52 Otalgia Active 019 Winifred Coulter, [address], [address] , [facility] - [facility] 05/27/2018 09:21:53 Small bowel bacterial overgrowth syndrome Active 019 Winifred Coulter, [address], [address] , [facility] - [facility] 03/12/2019 09:50:21 Hemorrhoids Active 020 Winifred Coultre, [address], [address] , [place] - [facility] 06/17/2019 21:05:03 Hyperlipidemia Active 022 Winifred Coulter, [address], [address] , [place] - [facility] 11/02/2021 12:05:54 Gastroesophageal reflux disease Active 022 Winifred Coulter, [address], [address] , [place] - [facility] 11/02/2021 12:38:25 Bilateral earache Active 022 Winifred Coulter, [address], [address] , [place] - [facility] 11/08/2021 00:04:27 Idiopathic stabbing headache Active 022 Winifred Coulter, [place] [address] [facility], [place], [address] , [place] [facility] 12/13/2021 11:24:20 Candidiasis Active 022 Winifred Coulter, [place] [address] [facility], [place], [address] , [place] [facility] 12/13/2021 11:40:18 Otalgia of right ear Active 022 Winifred Coulter, [place] [address] [place], [address] , [place] [facility] 12/27/2021 19:03:50 Constipation Active 022 Winifred Coulter, [address], [address] , [place] [facility] 01/28/2022 15:02:08 Tinnitus Active 022 Winifred Coulter, [address], [address] , [place] - [facility] 03/03/2022 19:52:51 Iron deficiency anemia Active 022 Winifred Coulter, [address], [address] , [place] - [facility] 04/25/2022 16:08:23 Malaise and fatigue Active 023 Winifred Coulter, [address], [address] , [place] - [facility] 05/25/2022 19:24:58 Hypomagnesemia Active 023 Winifred Coulter, [address], [address] , [place] - [facility] 06/06/2022 16:11:18 Cramp in foot Active 023 Winifred Coulter, [address], [address] , [place] - [facility] 06/06/2022 16:11:44 Vitamin D deficiency Active 023 Winifred Coulter, [address], [address] , [facility] 06/06/2022 16:12:14 History of Schatzkis ring Active 023 Winifred Coulter, [address], [address] , [facility] 08/03/2022 16:48:24 Problem Notes None recorded. Procedures Surgical History Date Name Laterality Status Provider Name and Address Organization Details Recorded Time 8 Other completed Winifred Coulter, RUFUS [address] [place] [address], [address], [facility] 01/31/2018 14:16:25 8 completed Winifred Coulter [address], [address], [facility] 01/31/2018 14:10:02 7 completed Winifred Coulter [address], [address], [facility] 01/31/2018 14:10:02 7 Colonoscopy completed Winifred Coulter [address], [address], [facility] 01/31/2018 14:16:25 6 Colposcopy completed Winifred Coulter ND [address] [place] [address], [address], [facility] 01/31/2018 14:16:25 0 Colposcopy completed Winifred Coulter [address], [address], [facility] 01/31/2018 14:16:25 Imaging Results None recorded. Procedure Notes None recorded. Medical Equipment None Reported. Medications Name Sig Start Date Stop Date Status Note LastModified by Organization Details LastModified Time Magnesium Buffered Chelate 1 cap 2xday 2018 active Not Available Not Available Not Avai lable D-Mulsion 1000iu 4 drops/da y 2018 active Not Available Not Available Not Avai lable GI Fortify Powder up to 1 scoop 2xday 01/07 completed Not Available Not Available Not Available Tristian Sporebioti cs week 1 : 2capever [...] Address Organization Details Last Updated DateTime 06/06/2022 84973.01 g 66 /min Winifred Coulter, [place] [address] [facility], [place], [address], [facility] 06/06/2022 15:41:14 Social History Question Answer Notes LastModified by Organizat ion Details LastModified Time Tobacco Smoking Status Never Smoker Not Available [employer] 03/16/2020 03:41:47 What Is Your Level Of Alcohol Consumption? Occasional [id number] Information not available 03/16/2020 How Many Years Have You Consumed Alcohol? 23 [id number] Information not available 03/16/2020 Animal Exposure? Yes Informat ion not available 06/06/2022 Are You Blind Or Do You Have Difficulty Seeing? No [id number] Information not available 03/16/2020 What Is Your Level Of Caffeine Consumption? Moderate [id number] Information not available 03/16/2020 How Much Tobacco Do You Chew? None [id number] Information not available 03/16/2020 Are You Currently Employed? Yes [id number] Information not available 03/16/2020 Are You Deaf Or Do You Have Serious Difficulty Hearing? No [id number] Information not available 03/16/2020 What Type Of Diet Are You Following? 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 Yes [id number] Information not available 03/16/2020 Frequent Air Travel [...] 06/06/2022 What Is Your Parents' Marital Status? [id number] Information not available 03/16/2020 Do You Use Protection During Sex? No [id number] Information not available 03/16/2020 What Is Your Relationship Status? [id number] Information not available 03/16/2020 Are You Sexually Active? Yes [id number] Information not available 03/16/2020 Number Of Sexual Partners 1 Information not available 06/06/2022 Do You Have Any Siblings? 3 [id number] Information not available 03/16/2020 Are You Passively Exposed To Smoke? No Information not available 01/31/2018 What Types Of Sporting Activities Do You Participate In? Kayaking, Hiking [id number] Information not available 03/16/2020 General Stress Level Medium Information not available 06/06/2022 Supplements Calcium, Pre- Vitamin W/iron Information not available 06/06/2022 How Many Years Have You Smoked Tobacco? 0 [id number] Information not available 03/16/2020 Sex: Female Functional Status Question Answer Note LastModified by Organization D etails LastModified Time Do you have difficulty walking or climbing stairs? No [id number] Information not available 03/16/2020 Do you have difficulty doing errands alone? No [id number] Information not available 03/16/2020 Are you able to care for yourself? Yes [id number] Information n ot available 03/16/2020 Do you have difficulty dressing or bathing? No [id number] Information not available 03/16/2020 What is your exercise level? None [id number] Information not available 03/16/2020 Mental Status Question Answer Note LastModified by Organization D etails LastModified Time Do you have difficulty concentrating, remembering or making decisions? Yes [id number] Information no t available 03/16/2020 Family History [...] N High Cholesterol N Liver Disease N Headaches N Fibromyalgia N Kidney Disease N Allergies/Hayfever Y Heart [...] Code 5154 Winifred Coulter [place] MAIN OFFICE [address] [place] [address] 01/31/2018 13:53:58 02/05/2018 04:38:22 Pruritic disorder 574188340 Fatigue 46994861 Migraine without aura 56 310454 Abdominal pain 96904599 Trying to conceive 67046 9003 5197 Winifredlucien Coulter [place] MAIN OFFICE [address] [place] [address] 02/21/2018 13:09:35 02/25/2018 05:01:12 Epigastric pain 83464836 High gluco se level in blood 702973196 Vitamin D deficiency 347 [address]309 5238 [place] MAIN OFFICE [address] [place] [address] 03/13/2018 16:16:36 03/13/2018 17:35:30 Dietary management surveillance 542338109 Flatulence , eructation and gas pain 278774700 Abdominal pain 71089585 5265 [place]red [place] MAIN OFFICE [address] [place] [address] 03/25/2018 15:47:14 03/25/2018 18:27:39 Flatulence, eructation and gas pain 197816726 Dietary ma nagement surveillance 860577340 Common cold 90778101 5282 [place] MAIN OFFICE [address] [place] [address] 03/29/2018 10:58:04 03/29/2018 13:07:41 5431 Win[place]red [place], [place] MAIN OFFICE [address] [place] [address] 05/02/2018 15:20:30 05/02/2018 15:46:21 Otalgia 61785167 5483 [place] MAIN OFFICE [address] [place] [address] 05/23/2018 15:06:43 05/23/2018 15:51:12 Flatulence, eructation and gas pain 804298051 Abdominal pain 93726117 Chronic constipation 236 671657 Dietary ma nagement surveillance 653691610 Otalgia 05110393 5574 [place] MAIN OFFICE [address] [place] [address] 06/27/2018 15:01:27 07/03/2018 21:28:30 Flatulence, eructation and gas pain 119594976 Chronic constipation 236 997353 Otalgia 45017667 Dietary ma nagement surveillance 200780323 Pruritic disorder 286144 002 5598 Winifredlucien Coulter, [place] MAIN OFFICE [address] [place] [address] 07/11/2018 08:51:13 07/11/2018 12:24:52 Vitamin D deficiency 66036629 Indigestion 420970504 Fatigue 14324111 Candidiasis 20543646 5706 [place] MAIN OFFICE [address] [place] [address] 08/01/2018 14:07:00 08/01/2018 14:57:12 Flatulence, eructation and gas pain 307392248 On examina tion - fluid -middle ear 702900557 5766 [place] MAIN OFFICE [address] [place] [address] 08/15/2018 15:24:53 08/21/2018 10:16:14 Magnesium deficiency 818142477 Vitamin D deficiency 347 16565 Dietary ma nagement surveillance 692512774 On examina tion - fluid -middle ear 303189453 Bilateral tinnitus 79940 41471125 5835 [place] MAIN OFFICE [address] [place] [address] 09/11/2018 15:06:42 09/11/2018 15:51:41 Epigastric pain 64657398 Nausea 674653636 Dietary ma nagement surveillance 601603539 5915 [place] MAIN OFFICE [address] [place] [address] 10/10/2018 15:29:15 10/16/2018 22:48:41 Chronic constipation 816434244 Flatulence , eructation and gas pain 120777367 Dietary ma nagement surveillance 515627654 Pruritic disorder 243885 002 5989 [place] MAIN OFFICE [address] [place] [address] 10/31/2018 13:07:14 10/31/2018 14:07:12 Candidiasis 32247730 Flatulence , eructation and gas pain 175589984 6250 [place] MAIN OFFICE [address] [place] [address] 01/07/2019 13:42:21 01/10/2019 08:38:20 Small bowel bacterial overgrowth syndrome 987675303 Dietary ma nagement surveillance 171276047 6334 Winifred Coulter [place] MAIN OFFICE [address] [place] [address] 02/04/2019 11:42:50 02/04/2019 12:14:57 Small bowel bacterial overgrowth syndrome 358869418 Flatulence , eructation and gas pain 485003850 Dietary ma nagement surveillance 582370925 Chronic constipation 236 280041 9745 [place] MAIN OFFICE [address] [place] [address] 03/05/2019 15:34:57 03/05/2019 16:27:44 Chronic constipation 867658200 Poor perip heral circulation 7830658 Small diaz l bacterial overgrowth syndrome 775585444 6487 [place] MAIN OFFICE [address] [place] [address] 04/03/2019 15:39:38 04/04/2019 18:38:53 Hypothyroidism 96603789 Small diaz l bacterial overgrowth syndrome 935867304 Pruritic disorder 762101 002 6606 [place] MAIN OFFICE [address] [place] [address] 06/02/2019 14:58:12 06/03/2019 12:18:07 Abdominal pain 62563250 Chronic constipation 236 266305 Dietary ma nagement surveillance 160374998 Flatulence , eructation and gas pain 304076553 Hemorrhoids 98002862 7050 Winifred Coulter [place] MAIN OFFICE [address] [place] [address] 12/02/2019 15:56:03 12/02/2019 15:56:52 Cramp in foot 328332450 Small diaz l bacterial overgrowth syndrome 035807872 Otalgia 79766269 Flatulence , eructation and gas pain 000590179 Dietary ma nagement surveillance 551140478 7107 Winifred Coulter [place] MAIN OFFICE [address] [place] [address] 12/18/2019 09:10:26 12/24/2019 10:18:16 Flatulence, eructation and gas pain 534725909 Dietary ma nagement surveillance 590523632 Small diaz l bacterial overgrowth syndrome 810146542 9171 Winifred Coulter [place] MAIN OFFICE [address] [place] [address] 11/02/2021 11:48:58 11/22/2021 14:47:59 Hyperlipidemia 51563422 Gastroesop hageal reflux disease 185606800 Pruritic disorder 448335 002 Bilateral earache 617009 003 Small diaz l bacterial overgrowth syndrome 009026053 9291 Winifred Coulter [place] MAIN OFFICE [address] [place] [address] 12/13/2021 11:05:21 12/28/2021 09:57:26 Idiopathic stabbing headache 150654842 Candidiasis 70559300 Otalgia of right ear 202 0243993 9433 Winifred Coulter [place] MAIN OFFICE [address] [place] [address] 01/26/2022 16:02:42 01/28/2022 15:27:57 Gastroesophageal reflux disease 279590003 Small diaz l bacterial overgrowth syndrome 676967642 [facility] 82242755 9514 Winifred Coulter [place] MAIN OFFICE [address] [place] [address] 03/02/2022 16:43:35 03/03/2022 20:20:17 Family history of coronary arteriosclerosis 471167338 [facility] 93953248 Small diaz l bacterial overgrowth syndrome 018813213 Dietary ma nagement surveillance 397214696 9670 Winifred Coulter [place] [facility] [address] [place] [address] 04/25/2022 15:54:04 05/25/2022 19:28:12 Iron deficiency anemia 65259495 Hyperlipidemia 26291061 Malaise and fatigue 2717 41459 9818 Winifred Coulter [place] [address] [place] [address] 06/06/2022 15:36:43 07/08/2022 18:47:53 Iron deficiency anemia 21619718 Hyperlipidemia 07012649 Hypomagnesemia 767646657 Cramp in foot 270063830 Vitamin D deficiency 347 96276 Tan's esophagus 3029 29951 Health Concerns Section Related Observation LastModified by Organization Detai ls LastModified Time None Recorded Concern Status LastModified by Organization Details LastModified Time None Recorded Advance Directives Directive None Recorded Payers Encounter Date Sequence Insurance Name Policy Number Policy Fernandes Covered Member ID Fernandes Member ID Guarantor Name 01/26/2022 1 [place] [facility] [id number] Samira M Sonu [id number] Samira M Sonu 03/02/2022 1 [place] [facility] [id number] Samira M Sonu [id number] Samira M Sonu 04/25/2022 1 [place] [facility] [id number] Samira M Sonu [id number] Samira M Sonu 06/06/2022 1 [place] [facility] [id number] Samira M Sonu [id number] Samira M Sonu Notes Date Note Type [...] to track down Winifred Coulter, [place] [address] [facility], [place], [address], [place] - [facility] 01/28/2022 15:27:13 03/02/2022 text/html HPI Notes: diet [...] and boiling fruits- Winifred Coulter, [place] [address] [facility], [place], [address], [facility] - [facility] [employer] 03/03/2022 20:18:03 04/25/2022 text/html HPI Notes: descending [...] for iron deficinecy Winifred Coulter, RUFUS [address] [facility], [place], [address], [facility] - [facility] [employer] 05/25/2022 19:27:53 06/06/2022 text/html HPI Notes: she [...] bone broth recipes- Winifred Coulter, [place] [address] [place], [address], [place] [facility] 07/08/2022 18:47:41 OBGyn Episode No OBEpisode recorded.
[2023-12-21] MEDS: Simethicone/Sod Bicarb/Cit Ac, 4 gram PACKET 1 PACKET PO (11:55)
[2023-12-21] MEDS: Barium Sulfate 700 MG TAB PO (11:56)
[2023-12-21] MEDS: Barium Sulfate 98% W/W 140 ML BTL PO (11:58)
[2023-12-21] MEDS: Barium Sulfate 60% W/V 355 ML BTL PO (11:59)
--- NOTE | 2023-12-21 12:00 | DI.RAD_ITS ---
Exam(s) RF BARIUM SWALLOW EXAM: RF BARIUM SWALLOW CLINICAL HISTORY: DYSPHAGIA, R13.10, ? STRICTURE, RING, DYSMOTILITY TECHNIQUE: 2D and realtime digital imaging was performed. CONTRAST MATERIAL: Oral barium Oral water soluble contrast was administered. COMPARISON: No exams were available for comparison FINDINGS: ESOPHAGRAM: There is no evidence of aspiration during the swallow. There appears to be a mildly foca l area subtle mild narrowing of the esophagus at this C5 level.. This was not seen pre shaded during fluoroscopy but only on review of the images after the procedure. There is no evidence of Zenker's diverticulum. No fixed lesions seen in the esophagus. Esophagus exhibits normal diameter. No evide nce of achalasia. No evidence of hiatal hernia. No evidence of obvious Schatzki ring at the GE junc tion. Swallowing a radiopaque pill revealed rapid transit of the pill through the esophagus to the GE junct ion where it remains lodged momentarily until cleared with additional water swallowing. While it was temporarily lodged at the GE junction the patient claims to feel that it was stuck in the cervical r egion. IMPRESSION: 1. Subtle findings as above. As the next step I recommend modified barium swallow study which is pe rformed in the radiology department in conjunction with the speech pathologist. This will more accur ately assess the swallowing mechanism. RADIATION DOSE DELIVERED: nico Farr=19.0 mGy
== END 2023-12-21 00:35 ==
LOC: DI 00:15
PROVIDERS: PCP Family Medicine; Visit Provider Anesthesiology Pain Medicine
DX: R13.10 Dysphagia, unspecified (principal)
CPT/HCPCS: 74221; J3490

== ENCOUNTER 2024-05-13 10:18 | Outpatient (REF) | payer BC, SELFPAY ==
--- OUTSIDE RECORDS SUMMARY | 2024-05-13 10:20 | XMS_ITS | Encounter Summary ---
Author Organization [facility] [place] [address] Care Team Providers Care Pharmacy Clerk Name Role Phone José Luis Cornejo Primary Care Provider [phone]- [phone] Encounter Details Date Type Department Care Team [...] on filedocumented in this encounter Care Teams Pharmacy Clerk Relationship Specialty Start Date End Date José Luis Cornejo PA [address] [place] [address] PCP - General Family Medicine 09/05/23 documented as of this encounter
--- OUTSIDE RECORDS SUMMARY | 2024-05-13 10:20 | XMS_ITS | Encounter Summary ---
Author Organization [facility] Address [facility] [place] [address] Care Team Providers Care Manager Statistics Name Role Phone José Luis Cornejo Primary Care Provider [phone]- [phone] Reason for Visit * Consultation (Routine) - Closed Specialty Diagnoses / Procedures Referred By Emely alvarenga Referred To Contact Dermatology Diagnoses Papule of skin Sangeeta Velasco, TELEPHONE INFORMATION SUPERVISOR [address] [place] [address] [facility] Dermatology [address] [place] [address] Referral ID Status Reason Start Date Expiration Date V isits Requested Visits Authorized [id number] Closed Consult, Test & Treat PCP Updated and/or Approved 06/08/2023 06/07/2024 1 1 Encounter Details Date Type Department Care Team (Late st Contact Info) Description 09/05/2023 9:40 AM EDT Office Visit Dermatology at [facility] [address] [place] [address] Cullen Capone MD [facility] DR KASSIDY [place] [address] Multiple benign melanocytic nevi of upper and lower extremities and trunk; Lentigines; Seborrheic keratoses; Oyung angioma; Seborrheic dermatitis Social History Tobacco Use [...] this encounter Progress Notes * Harjeet Dan, [facility] - 09/05/2023 9:40 AM EDT Images from [...] relevant family history N Social History 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 I performed the above scribed service and agree with the accuracy of the documentation in this encounter. Reviewed and signed by: Cullen Capone MD Dermatology [facility] documented in this encounter Plan of Treatment Not on file documented as of this encounter Visit Diagnoses Diagnosis Multiple benign melanocytic nevi of upper and lower extremities and trunk Lentigines Other dyschromia Seborrheic keratoses Young angioma Nevus, non-neoplastic Seborrheic dermatitis Seborrheic dermatitis, unspecified documented in this encounter Care Teams Manager Statistics Relationship Specialty Start Date End Date José Luis Cornejo PA [address] [place] [address] PCP - General Family Medicine 09/05/23 documented as of this encounter
--- OUTSIDE RECORDS SUMMARY | 2024-05-13 10:20 | XMS_ITS | Encounter Summary ---
Author Organization [facility] Address [address] [place] [address] Care Team Providers Care Glaze Grinder Name Role Phone Unavailable Primary Care Provider Unavailabl e Encounter Details Date Type Department Care Team (Late st Contact Info) Description 06/30/2010 Results Only [facility] Laboratory Services - [facility] ([facility] [address], [place] [id number] Jaylin Bell, [facility] [address] [place] [address] Social History Tobacco Use Types Packs/Day Years Used Date Smoking Tobacco: Never Assessed Comments Unknown Sex and Gender Information Value Date Recorded Sex Assigned at Not on file Legal Sex Female 18:19 EST Gender Identity Not on file Sexual Orientation [...] reading/interpreti ng unformatted reports. ? Name: ? SNIDER, SAMIRA L ? Accession #: ? [id number] ? : ? 1975 (Age: 35) ??F ?Collect Date: ? 06/30/2010 ? Location: ? [facility] ? Receive Date: ? 07/01/2010 ? Provider: ?JAYLIN SHRUTHI TUBE PUSHER ? Copy to: ? Specimen/Source: ?Pap Test, [...] reviewed and electronically signed by: ? Tera Stumler, CT(ASCP) ? Report Date: ??07/05/2010 14:36 ? End of Report ? [facility] 06/30/2010 07/01/2010 us Jaylin Bell TUBE PUSHER PATHOLOGY ORDERABLES Final R esult [facility] [address] [place] [address] documented in this encounter Visit Diagnoses Not on filedocumented in this encounter
--- OUTSIDE RECORDS SUMMARY | 2024-05-13 10:20 | XMS_ITS | Encounter Summary ---
Author Organization [facility] [place] [address] Care Team Providers Care Agronomy Instructor Name Role Phone Unknown Primary Care Provider [...] on filedocumented in this encounter Care Teams Agronomy Instructor Relationship Specialty Start Date End Date Unknown None PCP - General 12/31/19 06/07/22 documented as of this encounter
--- OUTSIDE RECORDS SUMMARY | 2024-05-13 10:20 | XMS_ITS | Encounter Summary ---
Author Organization [facility] Address [address] [place] [address] Care Team Providers Care Cutter Grinder Operator Name Role Phone Watson Khalil MD Primary Care Provider [phone] Encounter Details Date Type Department Care Team (Late st Contact Info) Description 12/22/2013 Results Only [facility] Laboratory Services - [facility] ([facility]) [address] [place], [place] [address] Jaylin Bell, [facility] [address] [place] [phone] Social History Tobacco Use Types Packs/Day Years [...] ? SAMIRA SNIDER ? Accession #: ? [id number] ? : ? 1975 (Age: 38) ??F ?Collect Date: ? 12/22/2013 ? Location: ? [facility] ? Receive Date: ? 12/23/2013 ? Provider: JAYLIN BELL MACHINE SPLITTER Copy to: WATSON KHALIL MD ? Final Report SPECIMEN ADEQUACY ? Satisfactory for Evaluation - transformation zone component present GENERAL CATEGORIZATION ? Negative for Intraepithelial Lesion or Malignancy ?? Last Menstrual Period: 12/03/13 Hormonal/Contracep tive status: Oral contraceptives Specimen/Source: ??Pap Test, Cervix/Endocervix, ThinPrep Imaging System with manual evaluation Document reviewed and electronically signed by: ? Maura Arreola, CT(ASCP) ? Report ??Date: 12/29/2013 10:14 HPV with Pap Test ? Date Ordered: ? 12/29/2013 ? Status: ?? Signed Out ?Date Complete: ? 01/02/2014 ? By: ??System Interface ? Date Reported: ? 01/02/2014 ? Interpretation RESULT: Positive for high or intermediate risk HPV. E6 OR E7 mRNA from one or more types of HPV types 16,18,31, 33,35,39,45,51,52, 56,58,59,66, and 68 is detected by four roll calender operator mediated amplification. High and intermediate risk HPV [...] of Report [facility] 12/22/2013 12/23/2013 us Jaylin Bell MACHINE SPLITTER PATHOLOGY ORDERABLES Final R esult [facility] [address] [place] [address] documented in this encounter Visit Diagnoses Not on filedocumented in this encounter Care Teams Cutter Grinder Operator Relationship Specialty Start Date End Date Waston Khalil MD [address] [place] [address] PCP - General 02/18/13 documented as of this encounter
--- OUTSIDE RECORDS SUMMARY | 2024-05-13 10:20 | XMS_ITS | Encounter Summary ---
Author Organization [facility] Address [address] [place] [address] Care Team Providers Care Rectangular Tank Cooper Name Role Phone Watson Khalil MD Primary Care Provider [phone] Encounter Details Date Type Department Care Team (Latest Contact Info) Description 03/22/2015 7:57 EST - 03/22/2015 23:59 EST Hospital Encounter [address] [address] Unknown, Provider, MD Discharge Disposition: Home or Self Care Social [...] Code Departure Means Destination Home or Self Senior Living documented in this encounter Plan of Treatment Not on file documented as of this encounter Visit Diagnoses Not on filedocumented in this encounter Care Teams Rectangular Tank Cooper Relationship Specialty Start Date End Date Watson Khalil MD [address] [place] [address] PCP - General 02/18/13 documented as of this encounter
--- OUTSIDE RECORDS SUMMARY | 2024-05-13 10:20 | XMS_ITS | Encounter Summary ---
Author Organization [facility] [place] [address] Care Team Providers Care Hat Cone Inspector Name Role Phone José Luis Cornejo Primary Care Provider [phone] Reason for Referral * Audiology Exam (Routine) - Closed Specialty Diagnoses / Procedures Referred By Contac t Referred To Contact Audiology Diagnoses Hearing loss, unspecified hearing loss type, unspecified laterality Tila Grande MD [facility] [place] [address] Riri Cole AUD [facility] [place] [address] Referral ID Status Reason Start Date Expiration Date V isits Requested Visits Authorized [id number] Closed Consult, Test & Treat 08/23/2018 08/23/2019 1 1 Reason for Visit * Reason Comments Other pain and pressure in both ears, ears feel full, no hearing test as an adult * Consultation (Routine) - Closed Specialty Diagnoses / Procedures Referred By Contac t Referred To Contact Otolaryngology Diagnoses Other specified disorders of right middle ear and mastoid Winifred Coulter, [address] [place] [address] Tila Grande MD [facility] [place] [address] Referral ID Status Reason Start Date Expiration Date Visits Re quested Visits Authorized [id number] Closed 08/21/2018 08/21/2019 1 1 Encounter Details Date Type Department Care Team (Late st Contact Info) Description 08/21/2018 3:40 PM EDT Office [place] [address] Tila Grande MD [facility] [place] [address] Eustachian tube dysfunction, bilateral; Chronic rhinitis; Hearing [...] Grande MD - 08/21/2018 3:40 PM EDT [facility] Otolaryngology - Head and Neck Surgery Tila Grande MD 08/21/18 4:10 PM [place], [place] [address] Office Patient Name: Samira Ascencio Date of [...] DIAGNOSTIC performed by Elizabeth Barkley MD at [facility] ENDOSCOPY ??? PRO UPPER GI ENDOSCOPY, DIAGNOSTIC N/A 08/15/2016 EGD, UPPER GI ENDOSCOPY performed by Elizabeth Barkley MD at [facility] ENDOSCOPY ??? PRO UPPER GI ENDOSCOPY, DIAGNOSTIC N/A 11/20/2017 EGD, UPPER GI ENDOSCOPY performed by Elizabeth Barkley MD at [facility] END[facility] Family and Social History Family History: No family history on file. Social History: Lives in [place] [address] Social History Socioeconomic History ??? Marital status: [...] file Gets together: Not on file Attends yazidism service: Not on file Active member of [...] laterality documented in this encounter Care Teams Hat Cone Inspector Relationship Specialty Start Date End Date José Luis Cornejo PA [address] [place] [address] PCP - General Family Medicine 05/29/16 12/30/19 documented as of this encounter
--- OUTSIDE RECORDS SUMMARY | 2024-05-13 10:20 | XMS_ITS | Encounter Summary ---
Author Organization [facility] Address [address] [place] [address] Care Team Providers Care Health Editor Name Role Phone Unavailable Primary Care Provider Unavailabl e Encounter Details Date Type Department Care Team (Late st Contact Info) Description 12/17/2012 Results Only [facility] Laboratory Services - [facility] ([facility]) [address] [place], [place] [address] Jaylin Bell, [facility] [address] [place] [address] Social History Tobacco Use Types [...] ? SAMIRA SNIDER ? Accession #: ? [id number] : ? 1975 (Age: 37) ??F ?Collect Date: ? 12/17/2012 Location: ? [facility] ? Receive Date: ? 12/18/2012 Provider: ?JAYLIN BELL STRADDLE BUG DRIVER Copy to: ?RACHID FERNÁNDEZ MD ? Specimen/Source: [...] Report [facility] 12/17/2012 12/18/2012 Jaylin Bell STRADDLE BUG DRIVER PATHOLOGY ORDERABLES Final R esult [facility] [address] [place] [address] documented in this encounter Visit Diagnoses Not on filedocumented in this encounter
--- OUTSIDE RECORDS SUMMARY | 2024-05-13 10:20 | XMS_ITS | Encounter Summary ---
Author Organization Count Includes [facility] [address] Care Team Providers Care Mushroom Packer Name Role Phone José Luis Cornejo Primary Care Provider [phone] Reason for Visit * Reason Comments Follow-up patient is here for ear tube placement Encounter Details Date Type Department Care Team (Late st Contact Info) Description 03/10/2019 3:40 PM EDT Office [place] [address] Tila Grande MD [facility] [place] [address] Eustachian tube dysfunction, bilateral; Recurrent acute serous [...] Grande MD - 03/10/2019 3:40 PM EDT [facility] Otolaryngology - Head and Neck Surgery Tila Grande MD 03/10/19 4:26 PM [place], [place] [address] Office Patient Name: Samira Ascencio Date of [...] azelastine (ASTELIN) 137 mcg (0.1 %) Aerosol, [place] 1 spray by Nasal route 2 times [...] DIAGNOSTIC performed by Elizabeth Barkley MD at [facility] ENDOSCOPY ??? PRO UPPER GI ENDOSCOPY, DIAGNOSTIC N/A 08/15/2016 EGD, UPPER GI ENDOSCOPY performed by Elizabeth Barkley MD at [facility] ENDOSCOPY ??? PRO UPPER GI ENDOSCOPY, DIAGNOSTIC N/A 11/20/2017 EGD, UPPER GI ENDOSCOPY performed by Elizabeth Barkley MD at [facility] END[facility] Family and Social History Family History: No family history on file. Social History: Lives in [place] [address] Social History Socioeconomic History ??? Marital status: [...] file Gets together: Not on file Attends gnosticism service: Not on file Active member of [...] media documented in this encounter Care Teams Mushroom Packer Relationship Specialty Start Date End Date José Luis Cornejo PA [address] [place] [address] PCP - General Family Medicine 05/29/16 12/30/19 documented as of this encounter
--- OUTSIDE RECORDS SUMMARY | 2024-05-13 10:20 | XMS_ITS | Encounter Summary ---
Author Organization [facility] [place] [address] Care Team Providers Care Abrasive Band Winder Name Role Phone José Luis Cornejo Primary Care Provider [phone] Reason for Visit * Auth/Cert Specialty Diagnoses / Procedures Referred By Emely t Referred To Contact Diagnoses epigastric abdominal pain Procedures PRO UPPER GI ENDOSCOPY, DIAGNOSTIC EGD, UPPER GI ENDOSCOPY Referral ID Status Reason Start Date Expiration Date Visits Re quested Visits Authorized [id number] 1 1 Encounter Details Date Type Department Care Team (Late st Contact Info) Description 11/20/2017 1:00 PM EDT - 11/20/2017 1:30 PM EDT [place] [address] Elizabeth Barkley MD [facility] [place] [address] EGD, UPPER GI ENDOSCOPY (WRU 2.09) Social [...] better as expected. Sunday-Sunday Same Day Endo [phone] Otherwise contact [phone] and ask to speak to the floor layer helper auctioneer art Follow-up care is a lassiter part of [...] anesthesia Elizabeth Barkley MD Gastroenterology attending Pager [phone] documented in this encounter Plan of Treatment [...] PM EDT 11/20/2017 2:37 PM EDT Narrative [facility] - 11/20/2017 2:37 PM EDT Specimen requisition ordered. ??Separate Pathology report to follow Elizabeth Barkley MD PATHOLOGY/CYTOLOG Y ORDERABLES [facility] [place] [address] * Specimen to Pathology (11/20/2017 2:37 PM EDT) AP Specimen 11/20/2017 2:37 PM EDT 11/20/2017 2:37 PM EDT Narrative [facility] - 11/20/2017 2:37 PM EDT Specimen requisition ordered. ??Separate Pathology report to follow Elizabeth Barkley MD PATHOLOGY/CYTOLOG Y ORDERABLES Performing Organization Address [facility] [place] [address] * Specimen to Pathology (11/20/2017 2:37 PM EDT) AP Specimen 11/20/2017 2:37 PM EDT 11/20/2017 2:37 PM EDT Narrative [facility] - 11/20/2017 2:37 PM EDT Specimen requisition ordered. ??Separate Pathology report to follow Elizabeth Barkley MD PATHOLOGY/CYTOLOG Y ORDERABLES Performing Organization Address [facility] [place] [address] * Specimen to Pathology (11/20/2017 2:37 PM EDT) AP Specimen 11/20/2017 2:37 PM EDT 11/20/2017 2:37 PM EDT Narrative [facility] - 11/20/2017 2:37 PM EDT Specimen requisition ordered. ??Separate Pathology report to follow Elizabeth Barkley MD PATHOLOGY/CYTOLOG Y ORDERABLES Performing Organization Address [facility] [place] [address] * Surgical Pathology Report (11/20/2017 2:31 PM EDT) Final Diagnosis [id number] ? Location: 4T; EA06; A The signing [...] diagnostic abnormality ??. Electronically signed by: ??Jonathan Preez MD Verified: ??11/22/2017 ?Pathologist Performed at: ??-[facility] Dept. of Pathology, [place], [place] CLINICAL INFORMATION Specimen Submitted: A - [...] ng: (T1) ??ejr 11/22/2017 3:01 PM EDT [facility] GI Biopsy 11/20/2017 2:31 PM EDT 11/20/2017 2:31 PM EDT GI Biopsy 11/20/2017 2:31 PM EDT 11/20/2017 2:31 PM EDT GI Biopsy 11/20/2017 2:31 PM EDT 11/20/2017 2:31 PM EDT GI Biopsy 11/20/2017 2:31 PM EDT 11/20/2017 2:31 PM EDT Elizabeth Barkley MD PATHOLOGY/CYTOLOG Y ORDERABLES Performing Organization Address [facility]/State/ZIP Co de Phone Number [facility] [place] [address] * UPPER GI ENDOSCOPY (11/20/2017 2:07 PM EDT) UPPER GI ENDOSCOPY [facility] Endoscopy ___ Procedure Date: 11/20/2017 2:07 PM ? Patient Name: Samira Ascencio ? N: [id number] ? Date of : 1975 ? Age: 42 ? Order #: [id number] ? Instrument Name: [facility]-[id number] ? ___ Procedure: ? Upper GI endoscopy [...] on filedocumented in this encounter Care Teams Abrasive Band Winder Relationship Specialty Start Date End Date José Luis Cornejo PA [address] [place], [place] [address] PCP - General Family Medicine 05/29/16 12/30/19 documented as of this encounter
--- OUTSIDE RECORDS SUMMARY | 2024-05-13 10:20 | XMS_ITS | Encounter Summary ---
Author Organization [facility] [place] [address] Care Team Providers Care Chief Of Internal Medicine Name Role Phone José Luis Cornejo Primary Care Provider [phone]- [phone] Encounter Details Date Type Department Care Team (Late st Contact Info) Description 02/27/2019 [place] [phone] Bong Pablo RN Social History Tobacco Use [...] if she had further questions. CHING Hollingsworth, space planner Triage Nurse documented in this encounter Plan of Treatment Not on file documented as of this encounter Visit Diagnoses Not on filedocumented in this encounter Care Teams Chief Of Internal Medicine Relationship Specialty Start Date End Date José Luis Cornejo PA [address] [place] [address] PCP - General Family Medicine 05/29/16 12/30/19 documented as of this encounter
--- OUTSIDE RECORDS SUMMARY | 2024-05-13 10:20 | XMS_ITS | Encounter Summary ---
Author Organization [facility] Address [address] [place] [address] Care Team Providers Care Central Sterilization Technician Name Role Phone Watson Khalil MD Primary Care Provider [phone] Encounter Details Date Type Department Care Team (Late st Contact Info) Description 02/17/2013 Results Only [facility] Laboratory Services - [facility] ([facility]) [address] [place] [phone] Watson Khalil MD [address], [place] [address] Social History Tobacco Use Types Packs/Day Years [...] ? SAMIRA SNIDER ? Accession #: ? [id number] ? : ? 1975 (Age: 37) ??F [...] moderate amount of cytoplasm. ??The melanocytes show branch office manager maturation. ??(Dr. Villafana)/[facility] Document reviewed and electronically signed by: [...] LAB 02/17/2013 9:59 EDT 02/18/2013 9:59 EDT us Watson Khalil MD PATHOLOGY ORDERABLES Final Res ult [facility] [address] [place] [address] documented in this encounter Visit Diagnoses Not on filedocumented in this encounter Care Teams Central Sterilization Technician Relationship Specialty Start Date End Date Watson Khalil MD [address] [place] [address] PCP - General 02/18/13 documented as of this encounter
--- OUTSIDE RECORDS SUMMARY | 2024-05-13 10:20 | XMS_ITS | Encounter Summary ---
Author Organization [facility] Address [facility] [place] [address] Care Team Providers Care Utility Specialist Name Role Phone José Luis Cornejo Primary Care Provider [phone] Reason for Visit * Reason Comments Other still symptomatic bu t a little bit better * Audiology Exam (Routine) - Closed Specialty Diagnoses / Procedures Referred By Emely alvarenga Referred To Contact Audiology Diagnoses Hearing loss, unspecified hearing loss type, unspecified laterality Tila Grande MD [facility] [place] [address] Riri Cole AUD [facility] [place] [address] Referral ID Status Reason Start Date Expiration Date V isits Requested Visits Authorized [id number] Closed Consult, Test & Treat 08/23/2018 08/23/2019 1 1 Encounter Details Date Type Department Care Team (Late st Contact Info) Description 11/18/2018 11:40 AM EDT Office [place] [address] Tila Grande MD [facility] [place] [address] Eustachian tube dysfunction, bilateral; Chronic rhinitis; Retraction [...] Grande MD - 11/18/2018 11:40 AM EDT [facility] Otolaryngology - Head and Neck Surgery Tila Grande MD 11/18/18 11:58 AM [place] [address] Office Patient Name: Samira Ascencio Date of [...] DIAGNOSTIC performed by Elizabeth Barkley MD at [facility] ENDOSCOPY ??? PRO UPPER GI ENDOSCOPY, DIAGNOSTIC N/A 08/15/2016 EGD, UPPER GI ENDOSCOPY performed by Elizabeth Barkley MD at [facility] ENDOSCOPY ??? PRO UPPER GI ENDOSCOPY, DIAGNOSTIC N/A 11/20/2017 EGD, UPPER GI ENDOSCOPY performed by Elizabeth Barkley MD at [facility] Family and Social History Family History: No family history on file. Social History: [place] [address] Social History Socioeconomic History ??? Marital status: [...] file Gets together: Not on file Attends tenriism service: Not on file Active member of [...] ear documented in this encounter Care Teams Utility Specialist Relationship Specialty Start Date End Date José Luis Cornejo PA [address] [place] [address] PCP - General Family Medicine 05/29/16 12/30/19 documented as of this encounter
--- OUTSIDE RECORDS SUMMARY | 2024-05-13 10:20 | XMS_ITS | Encounter Summary ---
Author Organization [facility] [place] [address] Care Team Providers Care Program Facilitator Name Role Phone None Primary Care Provider Unavailabl e Reason for Referral * Consultation (Routine) - Closed Specialty Diagnoses / Procedures Referred By Emely alvarenga Referred To Contact Dermatology Diagnoses Papule of skin Sangeeta Velasco APRN [address] [place] [address] [facility] Dermatology [address] [place] [address] Referral ID Status Reason Start Date Expiration Date V isits Requested Visits Authorized [id number] Closed Consult, Test & Treat PCP Updated and/or Approved 06/08/2023 06/07/2024 1 1 Encounter Details Date Type Department Care Team (Late st Contact Info) Description 06/08/2023 Transcribe Orders eDH Incoming Referrals [phone] Sangeeta Velasco APRN [address] [place], [place] [id number] Papule of skin Social History Tobacco Use [...] skin documented in this encounter Care Teams Program Facilitator Relationship Specialty Start Date End Date None None PCP - General 06/08/23 09/04/23 documented as of this encounter
--- OUTSIDE RECORDS SUMMARY | 2024-05-13 10:20 | XMS_ITS | Encounter Summary ---
Author Organization [facility] [place] [address] Care Team Providers Care Hanging Flags Decorator Name Role Phone Unknown Primary Care Provider Unavailabl e Reason for Referral * Diagnostic Test (Routine) - Closed Specialty Diagnoses / Procedures Referred By Contac t Referred To Contact Radiology Diagnoses Family history of ischemic heart disease Procedures CT Heart For Coronary Calcium wo Contrast (Prepaid) Winifred Coulter ND [address] [place] [address] [facility] [place] [address] Referral ID Status Reason Start Date Expiration Date V isits Requested Visits Authorized [id number] Closed Specialty Service Requested 03/10/2022 09/09/2023 1 1 Reason for Visit * Diagnostic Test (Routine) - Closed Specialty Diagnoses / Procedures Referred By Contac t Referred To Contact Radiology Diagnoses Family history of ischemic heart disease Procedures CT Heart For Coronary Calcium wo Contrast (Prepaid) Winifred Coulter ND [address] [place] [address] [facility] [place] [address] Referral ID Status Reason Start Date Expiration Date V isits Requested Visits Authorized [id number] Closed Specialty Service Requested 03/10/2022 09/09/2023 1 1 Encounter Details Date Type Department Care Team (Latest Contact Info) Description 04/21/2022 2:53 PM EST - 04/21/2022 11:59 PM EST Hospital [place] [address] Yfn Winifred M, ND [address] [place] [address] Family history of ischemic heart disease Discharge [...] azelastine (ASTELIN) 137 mcg (0.1 %) Aerosol, [place] 1 spray by Nasal route 2 times [...] who have questions please contact the health healthcare facility administrator that requested your imaging first. ? Electronically signed by: Antonia Satrr MD, [facility] ([phone]), at 04/23/2022 8:22 AM Narrative 04/23/2022 8:22 AM EST EXAMINATION: CT HEART FOR CORONARY CALCIUM WO CONTRAST (PREPAID) CLINICAL HISTORY: Family history of ischemic heart disease and other diseases of the circulatory system COMPARISON: None. TECHNIQUE: 3.0 mm thick axial contiguous sections through the heart were obtained via ECG-gated axial mode acquisition without intravenous contrast. Craniocaudal coverage and qrzlb-kg-rapc were restricted to the heart. Post-processing was [...] mode acquisition without intravenouscontrast. Craniocaudal coverage and surav-nt-vufs were restricted to the heart. Post-processing was [...] patients who have questions please contactthe health healthcare facility administrator that requested your imaging first. Electronically signed by: Antonia Starr MD, [facility] ([phone]), at 04/23/2022 8:22 AM Winifred Coulter ND IMG CT ORDERABLES documented in this encounter Visit Diagnoses Diagnosis Family history of ischemic heart disease documented in this encounter Care Teams Hanging Flags Decorator Relationship Specialty Start Date End Date Unknown None PCP - General 12/31/19 06/07/22 documented as of this encounter
--- OUTSIDE RECORDS SUMMARY | 2024-05-13 10:20 | XMS_ITS | Encounter Summary ---
Author Organization [facility] Address [facility] [place] [address] Care Team Providers Care Dock Attendant Name Role Phone José Luis Cornejo Primary Care Provider +1- [phone] Reason for Visit * Reason Comments Follow-up Encounter Details Date Type Department Care Team (Late st Contact Info) Description 02/17/2019 4:40 PM EDT Office [place] [address] Tila Grande MD [facility] [place] [address] Retraction pocket of tympanic membrane of right [...] Grande MD - 02/17/2019 4:40 PM EDT [facility] Otolaryngology - Head and Neck Surgery Tila Grande MD 02/17/19 5:06 PM [place] [address] Office Patient Name: Samira Ascencio Date of [...] azelastine (ASTELIN) 137 mcg (0.1 %) Aerosol, [place] 1 spray by Nasal route 2 times [...] DIAGNOSTIC performed by Elizabeth Barkley MD at [facility] ENDOSCOPY ??? PRO UPPER GI ENDOSCOPY, DIAGNOSTIC N/A 08/15/2016 EGD, UPPER GI ENDOSCOPY performed by Elizabeth Barkley MD at [facility] ENDOSCOPY ??? PRO UPPER GI ENDOSCOPY, DIAGNOSTIC N/A 11/20/2017 EGD, UPPER GI ENDOSCOPY performed by Elizabeth Barkley MD at [facility] ENDOSCOPY Family and Social History Family History: No family history on file. Social History: Lives in [place] [address] Social History Socioeconomic History ??? 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
--- OUTSIDE RECORDS SUMMARY | 2024-05-13 10:20 | XMS_ITS | Encounter Summary ---
Author Organization [facility] Address [address] [place] [address] Care Team Providers Care Field Service Technician Poultry Name Role Phone Watson Khalil MD Primary Care Provider Encounter Details Date Type Department Care Team (Late st Contact Info) Description 03/28/2016 Results Only [facility] [phone] Jaylin Bell, [facility] [address] [place] [address] Social History Tobacco Use Types [...] reading/interpreti ng unformatted reports. Name: ? SAMIRA ASCENCIO ? Accession #: ? [id number] ? : ? 1975 (Age: 40) ??F ?Collect Date: ? 03/28/2016 ? Location: ? [facility] ? Receive Date: ? 03/29/2016 ? Provider: JAYLIN BELL [facility] Copy to: WATSON KHALIL MD ? Final Report SPECIMEN ADEQUACY ? Satisfactory for Evaluation - transformation zone component present GENERAL CATEGORIZATION ? Negative for Intraepithelial Lesion or Malignancy INTERPRETATION ? Fungal organisms present morphologically consistent with Sherice species. Last Menstrual Period: 03/17/2016 Previous Gynecologic Pathology: HPV: + 2013, 2014 Other: Additional clinical information: Neg ECC 03/2015 Specimen/Source: ??Pap Test, Cervix, ThinPrep Imaging System with manual evaluation Document reviewed and electronically signed by: ? Maura Arreola, AVI(ASCP) ? Report ??Date: 04/04/2016 13:14 HPV with Pap Test ? Date Ordered: ? 04/04/2016 ? Status: ?? Signed Out ?Date Complete: ? 04/07/2016 ? By: ??System Interface ? Date Reported: ? 04/07/2016 ? Interpretation RESULT: Negative for HPV. No E6 or E7 mRNA is detected from HPV types 16,18,31,33,35, 39,45,51,52,56,58, 59,66, and 68 by devops mediated amplification. Comments Document reviewed and electronically signed by: ? System Interface ? Report date: 04/07/2016 By the signature above, the attending physician certifies that he/she has personally conducted a gross and/or microscopic examination of the described specimens and rendered or confirmed the above diagnosis. End of Report [facility] 03/28/2016 03/29/2016 us Jaylin Bell STRATEGIC DEVELOPMENT MANAGER PATHOLOGY ORDERABLES Final R esult [facility] [address] [place] [address] documented in this encounter Visit Diagnoses Not on filedocumented in this encounter Care Teams Field Service Technician Poultry Relationship Specialty Start Date End Date Watson Khalil MD [address] [place] [address] PCP - General 02/18/13 documented as of this encounter
--- OUTSIDE RECORDS SUMMARY | 2024-05-13 10:20 | XMS_ITS | Encounter Summary ---
[place] [address] Care Team Providers Care Sports Physiotherapist Name Role Phone José Luis Cornejo Primary Care Provider +1- [phone] Encounter Details Date Type Department Care Team (Late st Contact Info) Description 03/17/2019 Telephone [place] [address] Bong Pablo RN Social History [...] no other questions or concerns. CHING Hollingsworth, creative intern Triage Nurse documented in this encounter Plan of Treatment Not on file documented as of this encounter Visit Diagnoses Not on filedocumented in this encounter Care Teams Sports Physiotherapist Relationship Specialty Start Date End Date José Luis Cornejo PA [address] [place] [address] PCP - General Family Medicine 05/29/16 12/30/19 documented as of this encounter
--- OUTSIDE RECORDS SUMMARY | 2024-05-13 10:20 | XMS_ITS | Encounter Summary ---
Author Organization [facility] [place] [address] Care Team Providers Care Resident Care Associate Name Role Phone José Luis Cornejo Primary Care Provider +1- [phone] Reason for Visit * Auth/Cert Specialty Diagnoses / Procedures Referred By Contac t Referred To Contact Diagnoses epigastric abdominal pain Procedures PRO UPPER GI ENDOSCOPY, DIAGNOSTIC EGD, UPPER GI ENDOSCOPY Referral ID Status Reason Start Date Expiration Date Visits Re quested Visits Authorized [id number] 1 1 Encounter Details Date Type Department Care Team (Late st Contact Info) Description 11/20/2017 2:08 PM EDT Anesthesia [place] [address] Vincent Mejia MD [facility] [place] [address] Albert Larsen, [facility] [address] [place] [address] Anesthesia Record Procedure Summary Procedure Name Responsible [...] IV Line - Single Lumen 11/20/17; 1405; yhse-ftq-bflunt catheter system; 20 gauge; Nia Wang RN; [...] Mejia MD - 11/20/2017 8:31 PM EDT [place] Department of Anesthesiology Post-procedure Note Patient: Samira Ascencio Procedure Summary Date Anesthesia Start Anesthesia Stop Room / Location 11/20/17 1408 1451 [facility] ENDO 2 / [facility] Procedure Diagnosis Surgeon Responsible Provider EGD, UPPER GI ENDOSCOPY (N/A Trunk) (epigastric abdominal pain ) Elizabeth Barkley MD Koff, Matthew D, MD All Anesthesia Providers: Anesthesiologist: Vincent Mejia MD DATA SECURITY ADMINISTRATOR: Albert Larsen CRNA Most Recent Vitals: 11/20/17 [...] DIAGNOSTIC performed by Elizabeth Barkley MD at [facility] ENDOSCOPY ??? PRO UPPER GI ENDOSCOPY, DIAGNOSTIC N/A 08/15/2016 EGD, UPPER GI ENDOSCOPY performed by Elizabeth Barkley MD at [facility] ENDOSCOPY Social History Substance Use Topics ??? [...] with patient and mother. Plan discussed with DATA SECURITY ADMINISTRATOR. PAT Staff Note documented in this encounter [...] mg documented in this encounter Care Teams Resident Care Associate Relationship Specialty Start Date End Date José Luis Cornejo PA [address] [place] [address] PCP - General Family Medicine 05/29/16 12/30/19 documented as of this encounter
--- OUTSIDE RECORDS SUMMARY | 2024-05-13 10:20 | XMS_ITS | Encounter Summary ---
Author Organization [place] [address] Care Team Providers Care Lead Recoverer Name Role Phone José Luis Cornejo Primary Care Provider +1- [phone] Reason for Visit * Surgical (Routine) - Specialty Diagnoses / Procedures Referred By Contac t Referred To Contact Gastroenterology Diagnoses flatulence Procedures lactulose breath test Winifred Coulter, ND [address] [place] [address] [facility] [address] [place] [address] Referral ID Status Reason Start Date Expiration Date V isits Requested Visits Authorized [id number] 11/01/2018 11/01/2019 1 1 Encounter Details Date Type Department Care Team (Latest Contact Info) Description 12/11/2018 1:00 PM EDT Procedure [place] [address] Bloating; Small intestinal bacterial overgrowth Social History [...] Breath Testing in Gastrointestinal Disorders: The [place] Consensus (Am J Gastroenterol 2017; 112(5):775-84. Apositive breath test is defined as a rise in hydrogen production >20 ppm compared to baseline within 90 minutes. Methane-positive is defined by at least 10 ppm production of methane. Signed, Khloe Norris APRN [place] [address] P: [phone] F: [phone] Copy: CEM Garcia documented in this encounter Plan of Treatment Not on file documented as of this encounter Visit Diagnoses Diagnosis Bloating Flatulence, eructation, and gas pain Small intestinal bacterial overgrowth documented in this encounter Care Teams Lead Recoverer Relationship Specialty Start Date End Date José Luis Cornejo PA [address] [place] [address] PCP - General Family Medicine 05/29/16 12/30/19 documented as of this encounter
--- OUTSIDE RECORDS SUMMARY | 2024-05-13 10:20 | XMS_ITS | Encounter Summary ---
Author Organization [facility] [place] [address] Care Team Providers Care Indoor Landscaper/Gardener Name Role Phone José Luis Cornejo Primary Care Provider +1- [phone] Encounter Details Date Type Department Care Team (Late st Contact Info) Description 05/27/2019 Telephone [place] [address] Serena Carter RN Social History [...] on filedocumented in this encounter Care Teams Indoor Landscaper/Gardener Relationship Specialty Start Date End Date José Luis Cornejo PA [address] [place] [address] PCP - General Family Medicine 05/29/16 12/30/19 documented as of this encounter
--- OUTSIDE RECORDS SUMMARY | 2024-05-13 10:20 | XMS_ITS | Encounter Summary ---
Author Organization Count Includes [facility] [place] [address] Care Team Providers Care Auditor Supervisor Name Role Phone Winifred Coulter ND Primary Care Provider +1- [phone] Encounter Details Date Type Department Care Team (Late st Contact Info) Description 06/08/2022 Telephone [place] [address] Josee Godwin Social History Tobacco Use Types [...] on filedocumented in this encounter Care Teams Auditor Supervisor Relationship Specialty Start Date End Date Winifred Coulter ND PCP - General Naturopathic Medicine 06/08/22 06/07/23 documented as of this encounter
--- OUTSIDE RECORDS SUMMARY | 2024-05-13 10:20 | XMS_ITS | Referral Summary ---
Author Organization [facility] Address [address] [place] [address] Care Team Providers Care Picu Nurse Name Role Phone Watson Khalil MD Primary Care Provider [phone] Social History Tobacco Use Types Packs/Day Years Used Date Smoking Tobacco: Never Assessed Comments Unknown Sex and Gender Information Value Date Recorded Sex Assigned at Not on file Legal Sex Female 18:19 EST Gender Identity Not on file Sexual Orientation Not on file Plan of Treatment Not on file Care Teams Picu Nurse Relationship Specialty Start Date End Date Watson Khalil MD [address] [place] [address] PCP - General 02/18/13
--- OUTSIDE RECORDS SUMMARY | 2024-05-13 10:20 | XMS_ITS | Encounter Summary ---
Author Organization [facility] [place] [address] Care Team Providers Care Balance Wheel Screw Hole Driller Name Role Phone José Luis Cornejo Primary Care Provider +1- [phone] Encounter Details Date Type Department Care Team (Late st Contact Info) Description 11/18/2018 11:00 AM EDT Office Visit Audiology at [address] [phone] Riri Cole AUD Type C tympanogram of right ear; Sensation [...] for findings, impressions and recommendations. Woo Tripp, [facility] [place] [address] documented in this encounter Plan of Treatment [...] left documented in this encounter Care Teams Balance Wheel Screw Hole Driller Relationship Specialty Start Date End Date José Luis Cornejo PA [address] [place] [address] PCP - General Family Medicine 05/29/16 12/30/19 documented as of this encounter
--- OUTSIDE RECORDS SUMMARY | 2024-05-13 10:20 | XMS_ITS | Encounter Summary ---
Author Organization [facility] Address [address] [place] [address] Care Team Providers Care Rubber Grinder Name Role Phone Watson Khalil MD Primary Care Provider [phone] Encounter Details Date Type Department Care Team (Late st Contact Info) Description 02/08/2015 Results Only [facility] [phone] Jaylin Bell, [facility] [address] [place] [address] Social History Tobacco Use Types [...] ? SAMIRA SNIDER ? Accession #: ? [id number] ? : ? 1975 (Age: 39) ??F ?Collect Date: ? 02/08/2015 ? Location: ? [facility] ? Receive Date: ? 02/09/2015 ? Provider: JAYLIN BELL [facility] Copy to: WATSON KHALIL MD ? Final [...] 33,35,39,45,51,52, 56,58,59,66, and 68 is detected by stage technician mediated amplification. High and intermediate risk [...] confirmed the above diagnosis. End of Report [facility] 02/08/2015 02/09/2015 us Jaylin Bell MONEY ROOM TELLER PATHOLOGY ORDERABLES Final R esult [facility] [address] [place] [address] documented in this encounter Visit Diagnoses Not on filedocumented in this encounter Care Teams Rubber Grinder Relationship Specialty Start Date End Date Watson Khalil MD [address] [place] [address] PCP - General 02/18/13 documented as of this encounter
--- OUTSIDE RECORDS SUMMARY | 2024-05-13 10:20 | XMS_ITS | Encounter Summary ---
[place] [address] Care Team Providers Care Bag Mender Name Role Phone José Luis Cornejo Primary Care Provider [phone]- [phone] Encounter Details Date Type Department Care Team (Late st Contact Info) Description 11/04/2018 Telephone Gastroenterology at [place] [phone] Serena Hickey Social History Tobacco Use Types [...] CLINICAL SAFETY CHECKLIST 11/04/2018 Serena Ascencio [address] [facility] [address] [id number] : 1975 REFERRING PROVIDER: Winifred Coulter PRIMARY [...] on filedocumented in this encounter Care Teams Bag Mender Relationship Specialty Start Date End Date José Luis Cornejo PA [address] [place] [address] PCP - General Family Medicine 05/29/16 12/30/19 documented as of this encounter
--- OUTSIDE RECORDS SUMMARY | 2024-05-13 10:20 | XMS_ITS | Continuity of Care Document ---
Author Organization [facility] Ambulatory Clinics Address [address] [place] [address] Care Team Providers Care Lining Cleaner Name Role Phone José Luis Cornejo Primary Care Physician Encounter [facility] NBR [id number] Date(s): 02/18/24 - 02/18/24 [facility] Ambulatory Clinics [address] [place] [address]- [place] Discharge Disposition: Home or Self Care Attending Physician: Khloe Khoury APRN Admitting Physician: Khloe Khoury APRN Allergies, Adverse Reactions, Alerts Substance Criticality Severity Reaction Reaction Severity Status Seasonal High criticality Moderate Act estevan Assessment and Plan Future Appointments Future Scheduled [...] weekly, # 30 g, 1 Refill(s), Pharmacy: [id number] Start Date: 05/28/22 Status: Ordered clobetasol [...] Daily, # 30 tab, 3 Refill(s), Pharmacy: [id number] Start Date: 06/05/22 Status: Ordered ZyrTEC [...] to oldest [Reference Range]: 1 Blood Pressure [90-120/60-80 mmHg] 118/7 4mmHg (02/18/24 3:22 PM) Mean Arterial Pressure, Cuff [65-140 mmH g] 89 mmHg (02/18/24 3:22 PM) Weight 67.9 kg (02/18/24 3:22 PM) Weight Measured (lbs) 149.694 lb (02/18/24 3:22 PM) Weight Dosing 67.900 kg (02/18/24 3:22 PM) Badger Body Weight Calculated 52.4 kg (02/18/24 3:22 PM) Height 160.02 cm (02/18/24 3:22 PM) Height/Length Measured (inches) 63 inch (02/18/24 3:22 PM) BSA Measured 1.74 m2 (02/18/24 3:22 PM) Body Mass Index 26.52 kg/m2 (02/18/24 3:22 PM) Social History Social History Type Response Smoking Status Smoking tobacco use: Never tobacco user;Never entered on: 08/28/23 Sex Female Sex Representation Female (finding) Patient Care team information Care Team Related Persons Name: KOBE COLMENARES JR Insurance Providers Guarantor name: AKBAR COLMENARES Health Plan Information #: 1 Payer: [facility] Member Number: [id number] Policy Number: NA Health Plan Information #: 2 Payer: [facility] Member Number: [id number] Policy Number: NA
--- OUTSIDE RECORDS SUMMARY | 2024-05-13 10:20 | XMS_ITS | Encounter Summary ---
[place] [address] Care Team Providers Care Special Weapons And Tactics Officer Name Role Phone José Luis Cornejo Primary Care Provider +1- [phone] Encounter Details Date Type Department Care Team (Late st Contact Info) Description 05/27/2019 Telephone [place] [address] Serena Carter RN Social History [...] on filedocumented in this encounter Care Teams Special Weapons And Tactics Officer Relationship Specialty Start Date End Date José Luis Cornejo PA [address] [place] [address] PCP - General Family Medicine 05/29/16 12/30/19 documented as of this encounter
--- OUTSIDE RECORDS SUMMARY | 2024-05-13 10:20 | XMS_ITS | Encounter Summary ---
Author Organization [facility] [place] [address] Care Team Providers Care Entry Level Assistant Manager Name Role Phone José Luis Cornejo Primary Care Provider +1- [phone] Reason for Visit * Reason Onset Date Comments Questions 02/26/2019 Encounter Details Date Type Department Care Team (Late st Contact Info) Description 02/26/2019 Telephone [place] [address] Romain Barreto Questions Social History Tobacco Use [...] on filedocumented in this encounter Care Teams Entry Level Assistant Manager Relationship Specialty Start Date End Date José Luis Cornejo PA [address] [place] [address] PCP - General Family Medicine 05/29/16 12/30/19 documented as of this encounter
--- OUTSIDE RECORDS SUMMARY | 2024-05-13 10:20 | XMS_ITS | Encounter Summary ---
Author Organization [facility] Address [address] [place] [address] Care Team Providers Care Highway Patrol Commander Name Role Phone Unavailable Primary Care Provider Unavailabl e Encounter Details Date Type Department Care Team (Late st Contact Info) Description 12/11/2011 Results Only [facility] - [facility] ([facility] [address] [place], [place] [address] Jaylin Bell, [facility] [address] [place] [address] Social History Tobacco Use Types [...] when reading/interpreti ng unformatted reports. Name: ? SNIDERNISHSAMIRA Tracey ? Accession #: ? [id number] : ? 1975 (Age: 36) ??F ?Collect Date: ? 12/11/2011 Location: ? [facility] ? Receive Date: ? 12/12/2011 Provider: ?JAYLIN BELL [employer] SENIOR OFFICER Copy to: ?RACHID FERNÁNDEZ MD ? Specimen/Source: [...] End of Report [facility] 12/11/2011 12/12/2011 us Jaylin Bell [employer] SENIOR OFFICER PATHOLOGY ORDERABLES Final R esult [facility] [address] [place] [address] documented in this encounter Visit Diagnoses Not on filedocumented in this encounter
--- OUTSIDE RECORDS SUMMARY | 2024-05-13 10:20 | XMS_ITS | Encounter Summary ---
Author Organization [facility] [place] [address] Care Team Providers Care Car Shifter Name Role Phone José Luis Cornejo Primary Care Provider +1- [phone] Reason for Visit * Reason Onset Date Comments Appointment 08/21/2018 Encounter Details Date Type Department Care Team (Late st Contact Info) Description 08/21/2018 Telephone [place] [address] Salvatore Vela Appointment Social History Tobacco Use [...] on filedocumented in this encounter Care Teams Car Shifter Relationship Specialty Start Date End Date José Luis Cornejo PA [address] [place] [address] PCP - General Family Medicine 05/29/16 12/30/19 documented as of this encounter
--- OUTSIDE RECORDS SUMMARY | 2024-05-13 10:20 | XMS_ITS | Encounter Summary ---
Author Organization [facility] Address [address] [place] [address] Care Team Providers Care Treating Plant Operator Name Role Phone Watson Khalil MD Primary Care Provider [phone] Encounter Details Date Type Department Care Team (Late st Contact Info) Description 03/22/2015 Results Only [facility] [phone] Carmen Wadsworth MD [address] [place] [address] [place] [address] Social History Tobacco Use Types Packs/Day Years [...] ? SAMIRA SNIDER ? Accession #: ? [id number] ? : ? 1975 (Age: 39) ??F [...] Bassett 03/23/2015 10:53 AM End of Report [facility] 03/22/2015 9:32 EST 03/23/2015 9:32 EST us Carmen Wadsworth MD PATHOLOGY ORDERABLES Final Resu lt [facility] [address] [place] [address] documented in this encounter Visit Diagnoses Not on filedocumented in this encounter Care Teams Treating Plant Operator Relationship Specialty Start Date End Date Watson Khalil MD [address] [place] [address] PCP - General 02/18/13 documented as of this encounter
--- OUTSIDE RECORDS SUMMARY | 2024-05-13 10:20 | XMS_ITS | Clinical Summary ---
Author Organization [facility] [place] [address] Care Team Providers Care Intelligence Senior Sergeant Name Role Phone José Luis Cornejo Primary Care Provider [phone] Allergies No known active allergies Medications Medication [...] Hepatitis B vaccine (0-59 yrs) (1) 1992 Tetanus/Diphtheria/Pertussis Vaccines (1 - Tdap) 1992 HPV test 2003 PAP Smear 2003 Breast Cancer Share Decision Needed 2013 Breast Cancer screening 2013 Zoster vaccine (1 of 2) 2023 Covid-19 Vaccine (2 - season) 01/13/202412/2020 Influenza (Flu) vaccine (1 o f 1 - Influenza standard series) 01/13/2024 Colonoscopy 08/15/2026 08/15/2016, 08/15/2016 Colorectal Cancer Screening 08/15/2026 Sigmoidoscopy (10 year) with FIT yearly 08/15/2026 0 08/15/2016, 08/15/2016 Procedures Procedure Name Priority Date/Time Associated Diagnosis Comments COLONOSCOPY Routine 08/15/2016 9:38 AM EDT from Last 3 Months or Most Recently Relevant to Health Maintenance Results * COLONOSCOPY (08/15/2016 9:38 AM EDT) COLONOSCOPY [facility] Endoscopy ___ Procedure Date: 08/15/2016 9:38 AM ? Patient Name: Samira Snider ? Date of : 1975 ? Age: 41 ? Order #: [id number] ? Instrument Name: [id number] ? ___ Procedure: ? Colonoscopy Indications: ? Hematochezia, Diarrhea (intermittent) Providers: ? Elizabeth Barkley MD, Seble Forbes, ? RN, Bianca Rubi, Personal Driver Referring MD: ?CEM Bell Medicines: ? An [...] preparation was evaluated using ? the BBPS ([place] Bowel Preparation ? Scale) with scores of: [...] Recently Relevant to Health Maintenance Care Teams Intelligence Senior Sergeant Relationship Specialty Start Date End Date José Luis Cornejo PA [address] [place] [address] PCP - General Family Medicine 09/05/23
--- OUTSIDE RECORDS SUMMARY | 2024-05-13 10:20 | XMS_ITS | Clinical Summary ---
Author Organization [facility] Address [address] [place] [address] Care Team Providers Care Supervisor Brine Name Role Phone Watson Khalil MD Primary Care Provider [phone] Social History Tobacco Use Types Packs/Day Years [...] 3-dose series) 06/22 COVID-19 Vaccine ( season) 2024 Care Teams Supervisor Brine Relationship Specialty Start Date End Date Watson Khalil MD [address] [place] [address] PCP - General 02/18/13
--- OUTSIDE RECORDS SUMMARY | 2024-05-13 10:21 | XMS_ITS | Encounter Summary ---
Author Organization [facility] Address [facility] [place] [id number] Care Team Providers Care Car Ferry Captain Name Role Phone Watson Khalil MD Primary Care Provider [phone] Reason for Visit * Reason Comments Skin Lesion Encounter Details Date Type Department Care Team (Late st Contact Info) Description 05/04/2011 5:00 PM EST [place] [address] Jolanta Lucas MD [facility] [place] [address] Melasma (Primary Dx) Discharge Disposition: Home Social History Tobacco Use Types Packs/Day Years Used Date Smoking Tobacco: Never Assessed Sex and Gender Information Value Date Recorded Sex Assigned at Not on file Gender Identity Not on file Sexual Orientation Not on file documented as of this encounter Progress Notes * Jolnata Ruth MD - 05/04/2011 5:21 PM EST [...] - she will discuss with PCP or PHYSICIAN/INTERNIST. Rx: Retin-A 0.04% gel at bedtime as tolerated. Discussed strategies for decreasing irritation including using 30-45 minutes after washing at night, using pea-sized amount mixed with moisturizer, start 3x/week working up to nightly as tolerated. B.RTC 6 months Note initiated by: PENNIE MERCADO LPN Routed to physician for review and changes: Jolanta Ruth MD Photo Printer of Dermatology Department of Surgery [facility] cc: WATSON KHALIL MD documented in this encounter Plan of Treatment Not on file documented as of this encounter Visit Diagnoses Diagnosis Melasma- Primary Other dyschromia documented in this encounter Care Teams Car Ferry Captain Relationship Specialty Start Date End Date Watson Khalil MD [address] [place] [address] PCP - General 04/05/10 05/28/16 documented as of this encounter
--- OUTSIDE RECORDS SUMMARY | 2024-05-13 10:21 | XMS_ITS | Encounter Summary ---
Author Organization [facility] [place] [address] Care Team Providers Care Underwriting Director Name Role Phone José Luis Cornejo Primary Care Provider [phone] Reason for Visit * Auth/Cert Specialty Diagnoses / Procedures Referred By Contac t Referred To Contact Diagnoses epigastric abdominal pain Procedures PRO UPPER GI ENDOSCOPY, DIAGNOSTIC EGD, UPPER GI ENDOSCOPY Referral ID Status Reason Start Date Expiration Date Visits Re quested Visits Authorized [id number] 1 1 Encounter Details Date Type Department Care Team (Latest Contact Info) Description 11/20/2017 12:16 PM EDT - 11/20/2017 3:36 PM EDT Hospital Encounter [place] [address] Elizabeth Barkley MD [facility] [place] [address] Discharge Disposition: Home Social History Tobacco Use [...] better as expected. Sunday-Sunday Same Day Endo [phone]-[phone] Otherwise contact [phone] and ask to speak to the leaf stamper land conservation specialist Follow-up care is a lassiter part of [...] anesthesia Elizabeth Barkley MD Gastroenterology attending Pager [phone] documented in this encounter Plan of Treatment [...] PM EDT 11/20/2017 2:37 PM EDT Narrative [facility] - 11/20/2017 2:37 PM EDT Specimen requisition ordered. ??Separate Pathology report to follow Elizabeth Barkley MD PATHOLOGY/[place] [address] * Specimen to Pathology (11/20/2017 2:37 PM EDT) AP Specimen 11/20/2017 2:37 PM EDT 11/20/2017 2:37 PM EDT Narrative [facility] - 11/20/2017 2:37 PM EDT Specimen requisition ordered. ??Separate Pathology report to follow Elizabeth Barkley MD PATHOLOGY/CYTOLOG Y ORDERABLES Performing Organization Address [facility]/[place] [address] * Specimen to Pathology (11/20/2017 2:37 PM EDT) AP Specimen 11/20/2017 2:37 PM EDT 11/20/2017 2:37 PM EDT Narrative [facility] - 11/20/2017 2:37 PM EDT Specimen requisition ordered. ??Separate Pathology report to follow Elizabeth Barkley MD PATHOLOGY/CYTOLOG Y ORDERABLES Performing Organization Address City/[facility]/[place] [address] * Specimen to Pathology (11/20/2017 2:37 PM EDT) AP Specimen 11/20/2017 2:37 PM EDT 11/20/2017 2:37 PM EDT Narrative [facility] - 11/20/2017 2:37 PM EDT Specimen requisition ordered. ??Separate Pathology report to follow Elizabeth Barkley MD PATHOLOGY/CYTOLOG Y ORDERABLES [facility] [place] [address] * Surgical Pathology Report (11/20/2017 2:31 PM EDT) Pathologist [facility] Emergency Department Final Diagnosis [id number] ? Location: 4T; EA06; A The signing [...] Perez MD Verified: ??11/22/2017 ?Pathologist Performed at: ??-[facility] [place], [place], [place] CLINICAL INFORMATION Specimen Submitted: A - [...] ng: (T1) ??ejr 11/22/2017 3:01 PM EDT [facility] GI Biopsy 11/20/2017 2:31 PM EDT 11/20/2017 2:31 PM EDT GI Biopsy 11/20/2017 2:31 PM EDT 11/20/2017 2:31 PM EDT GI Biopsy 11/20/2017 2:31 PM EDT 11/20/2017 2:31 PM EDT GI Biopsy 11/20/2017 2:31 PM EDT 11/20/2017 2:31 PM EDT Elizabeth Barkley MD PATHOLOGY/CYTOLOG Y ORDERABLES [facility] [place] [address] * UPPER GI ENDOSCOPY (11/20/2017 2:07 PM EDT) UPPER GI ENDOSCOPY [facility] Endoscopy ___ Procedure Date: 11/20/2017 2:07 PM ? Patient Name: Samira Ascencio ? N: [id number] ? Date of : 1975 ? Age: 42 ? Order #: [id number] ? Instrument Name: [id number] ? ___ Procedure: ? Upper GI endoscopy [...] on filedocumented in this encounter Care Teams Underwriting Director Relationship Specialty Start Date End Date José Luis Cornejo PA [address] [place] [address] PCP - General Family Medicine 05/29/16 12/30/19 documented as of this encounter
--- OUTSIDE RECORDS SUMMARY | 2024-05-13 10:21 | XMS_ITS | Encounter Summary ---
Author Organization [facility] [place] [address] Care Team Providers Care Photo Producer Name Role Phone Watson Khalil MD Primary Care Provider [phone] Reason for Visit * Reason Onset Date Comments Other 06/05/2011 Returned your ca ll Encounter Details Date Type Department Care Team (Late st Contact Info) Description 06/05/2011 Telephone Dermatology [place] [id number] Jolanta Lucas MD [facility] [place] [address] Other (Returned your call) Social History Tobacco [...] can reach her on her cell # [phone]. Mary Beth Slade documented in this encounter Plan of Treatment Not on file documented as of this encounter Visit Diagnoses Not on filedocumented in this encounter Care Teams Photo Producer Relationship Specialty Start Date End Date Watson Khalil MD [address] [place], [place] [address] PCP - General 04/05/10 05/28/16 documented as of this encounter
--- OUTSIDE RECORDS SUMMARY | 2024-05-13 10:21 | XMS_ITS | Encounter Summary ---
Author Organization [facility] Address [facility] [place] [address] Care Team Providers Care Golf Course Assistant Name Role Phone José Luis Cornejo Primary Care Provider [phone] Encounter Details Date Type Department Care Team (Late st Contact Info) Description 08/15/2016 9:30 AM EDT - 08/15/2016 10:15 AM EDT Surgery [place] [address] Elizabeth Barkley MD [facility] [place] [address] COLONOSCOPY, DIAGNOSTIC (WRVU 3.26) Social History Tobacco [...] occurs please contact your M.D. Please call [phone] before 5 pm with problems, questions or concerns. After 5pm call [phone] and ask to speak with the chipper cotton broker. Discharge instructions reviewed with patient who expresses understanding. * Attachments The following attachments cannot be sent through Care Everywhere. * COLONOSCOPY: POST-OP (PASHTO) documented in this encounter Medications at Time [...] sedation) Elizabeth Barkley MD Gastroenterology attending Pager [phone] documented in this encounter Plan of Treatment [...] Report (08/15/2016 10:33 AM EDT) Final Diagnosis [id number] ?Location: ; [facility]; The signing [...] ing: (T1) ??ejr 08/18/2016 1:55 PM EDT [facility] GI Biopsy 08/15/2016 10:3 3 AM EDT 08/15/2016 10:33 AM EDT GI Biopsy 08/15/2016 10:3 3 AM EDT 08/15/2016 10:33 AM EDT Elizabeth Barkley MD PATHOLOGY/CYTOLOG Y ORDERABLES Performing Organization Address City/[facility]/[place] [address] * Specimen to Pathology (surgical or derm) (08/15/2016 10:33 AM EDT) AP Specimen 08/15/2016 10:3 3 AM EDT 08/15/2016 10:33 AM EDT Narrative [facility] - 08/15/2016 10:33 AM EDT Specimen requisition ordered. ??Separate Pathology report to follow Elizabeth Barkley MD PATHOLOGY/CYTOLOG Y ORDERABLES Performing Organization Address [facility] [place] [address] * Specimen to Pathology (surgical or derm) (08/15/2016 10:33 AM EDT) AP Specimen 08/15/2016 10:3 3 AM EDT 08/15/2016 10:33 AM EDT Narrative [facility] - 08/15/2016 10:33 AM EDT Specimen requisition ordered. ??Separate Pathology report to follow Elizabeth Barkley MD PATHOLOGY/CYTOLOG Y ORDERABLES Performing Organization Address [facility] [place] [address] * COLONOSCOPY (08/15/2016 9:38 AM EDT) COLONOSCOPY [facility] Endoscopy ___ Procedure Date: 08/15/2016 9:38 AM ? Patient Name: Samira Snider ? Date of : 1975 ? Age: 41 ? Order #: [id number] ? Instrument Name: [id number] ? ___ Procedure: ? Colonoscopy Indications: ? Hematochezia, Diarrhea (intermittent) Providers: ? Elizabeth Barkley MD, Seble Forbes, ? RN, Bianca Rubi, Automobile Club Membership Sales Agent Referring MD: ?CEM Bell Medicines: ? An [...] preparation was evaluated using ? the BBPS ([place] Bowel Preparation ? Scale) with scores of: [...] UPPER GI ENDOSCOPY (08/15/2016 9:37 AM EDT) [facility] UPPER GI ENDOSCOPY [facility] Endoscopy Procedure Date: 08/15/2016 9:37 AM ? Patient Name: Samira Snider ? [facility]: [id number] ? Date of : 1975 ? Age: 41 ? Order #: [id number] ? Instrument Name: [id number] ? Procedure: ? Upper GI endoscopy Indications: ? Epigastric abdominal pain, ? post-prandial abdominal bloating and ? gas Providers: ? Elizabeth Barkley MD, Seble Forbes, ? RN, Bianca Rubi, Automobile Club Membership Sales Agent Referring : ?CEM Bell Medicines: ? Midazolam [...] GENERAL SURGICAL ORD ERABLES Performing Organization Address City/State/[facility] Co de Phone Number [employer] documented [...] sedation) documented in this encounter Care Teams Golf Course Assistant Relationship Specialty Start Date End Date José Luis Cornejo PA [address] [place] [address] PCP - General Family Medicine 05/29/16 12/30/19 documented as of this encounter
--- OUTSIDE RECORDS SUMMARY | 2024-05-13 10:21 | XMS_ITS | Encounter Summary ---
Author Organization [facility] [place] [address] Care Team Providers Care Switchman Name Role Phone Watson Khalil MD Primary Care Provider [phone] Reason for Visit * Reason Onset Date Comments Medication Problem 05/30/2011 Prior Auth de nied-benefit exclusion Encounter Details Date Type Department Care Team (Late st Contact Info) Description 05/30/2011 Telephone Dermatology [place] [id number] Jolanta Lucas MD [facility] [place] [address] Medication Problem (Prior Auth denied-benefit exclusion) Social [...] on filedocumented in this encounter Care Teams Switchman Relationship Specialty Start Date End Date Watson Khalil MD [address] [place] [address] PCP - General 04/05/10 05/28/16 documented as of this encounter
--- OUTSIDE RECORDS SUMMARY | 2024-05-13 10:21 | XMS_ITS | Encounter Summary ---
Author Organization [facility] [place] [address] Care Team Providers Care Cracker Off Name Role Phone Watson Khalil MD Primary Care Provider [phone] Reason for Visit * Reason Comments Skin Check Encounter Details Date Type Department Care Team (Late st Contact Info) Description 11/07/2011 10:45 AM EDT Follow-[place] [address] Jolanta Ruth MD [facility] [address] Jolanta Lucas MD [facility] [place] [address] Melasma (Primary Dx) Discharge Disposition: Home Social History Tobacco Use Types Packs/Day Years Used Date Smoking Tobacco: Never Assessed Sex and Gender Information Value Date Recorded Sex Assigned at Not on file Gender Identity Not on file Sexual Orientation Not on file documented as of this encounter Progress Notes * Jolatna Ruth MD - 11/07/2011 11:09 AM EDT DERMATOLOGY ESTABLISHED PATIENT CLINIC NOTE Date of service: 11/07/2011 Samira Snider : 1975 Provider: Jolanta Ruth MD SKIN HISTORY: Melasma HPI Samira Snider is a 36 y.o. year old female.Established patient of [facility]. She is here today for melasma follow [...] for review and changes: Jolanta Ruth MD Student Specialist of Dermatology Department of Surgery [facility] documented in this encounter Plan of Treatment Not on file documented as of this encounter Visit Diagnoses Diagnosis Melasma- Primary Other dyschromia documented in this encounter Care Teams Cracker Off Relationship Specialty Start Date End Date Watson Khalil MD [address] [place] [address] PCP - General 04/05/10 05/28/16 documented as of this encounter
--- OUTSIDE RECORDS SUMMARY | 2024-05-13 10:21 | XMS_ITS | Encounter Summary ---
Author Organization [facility] [address] Care Team Providers Care Skill Labor Name Role Phone Watson Khalil MD Primary Care Provider [phone] Reason for Referral * Physical Therapy (Routine) - Complete - Patient Will Schedule External Appt Specialty Diagnoses / Procedures Referred By Emely t Referred To Contact Physical Therapy Diagnoses Impingement syndrome of shoulder Pain in joint, shoulder region Em Rodriguez PA [facility] [place] [address] Referral ID Status Reason Start Date Expiration Date Visits Requested Visits Authorized [id number] Complete - Patient Will Schedule External Appt Evaluate and Treat 12/05/2011 06/02/2012 12 12 Reason for Visit * Reason Comments Right Shoulder Pain DOI 07/2011 Encounter Details Date Type Department Care Team (Late st Contact Info) Description 12/05/2011 1:10 PM EDT Office [place] [address] Rebecca Can MD [facility] [place] [address] Impingement syndrome of shoulder; Pain in joint, [...] plan documented above. Rebecca Can M.D., M.S. Tube Washer of Orthopaedic Surgery Shoulder, Elbow, and Sports Medicine Department of Orthopaedic Surgery [place] [phone] * Em Rodriguez PA - 12/05/2011 2:18 PM EDT PATIENT NAME: Samira Snider AGE: 36 y.o. MR#: [id number] DATE OF VISIT: 12/05/2011 DATE OF INJURY/ONSET: [...] or concerns. This dictation was performed using [employer] dictaction. I have attempted to edit the [...] region documented in this encounter Care Teams Skill Labor Relationship Specialty Start Date End Date Waston Khalil MD [address] [place] [address] PCP - General 04/05/10 05/28/16 documented as of this encounter
--- OUTSIDE RECORDS SUMMARY | 2024-05-13 10:21 | XMS_ITS | Encounter Summary ---
Author Organization [facility] Address [facility] [place] [address] Care Team Providers Care Dental Ceramist Helper Name Role Phone José Luis Cornejo Primary Care Provider [phone] Encounter Details Date Type Department Care Team (Latest Contact Info) Description 08/15/2016 8:41 AM EDT - 08/15/2016 11:27 AM EDT Hospital En[place] [address] Elizabeth Barkley MD [facility] [place] [address] Discharge Disposition: Home Social History Tobacco Use [...] occurs please contact your M.D. Please call [phone] before 5 pm with problems, questions or concerns. After 5pm call [phone] and ask to speak with the ski molder talent acquisition lead. Discharge instructions reviewed with patient who expresses understanding. * Attachments The following attachments cannot be sent through Care Everywhere. * COLONOSCOPY: POST-OP (YAKUT) documented in this encounter Medications at Time [...] sedation) Elizabeth Barkley MD Gastroenterology attending Pager [phone] documented in this encounter Plan of Treatment [...] Report (08/15/2016 10:33 AM EDT) Final Diagnosis [id number] ?Location: ; [facility]; The signing pathologist has (i) examined [...] ing: (T1) ??ejr 08/18/2016 1:55 PM EDT [facility] GI Biopsy 08/15/2016 10:3 3 AM EDT 08/15/2016 10:33 AM EDT GI Biopsy 08/15/2016 10:3 3 AM EDT 08/15/2016 10:33 AM EDT Elizabeth Barkley MD PATHOLOGY/CYTOLOG Y ORDERABLES Performing Organization Address [facility] [place] [address] * Specimen to Pathology (surgical or derm) (08/15/2016 10:33 AM EDT) AP Specimen 08/15/2016 10:3 3 AM EDT 08/15/2016 10:33 AM EDT Narrative [facility] - 08/15/2016 10:33 AM EDT Specimen requisition ordered. ??Separate Pathology report to follow Elizabeth Barkley MD PATHOLOGY/CYTOLOG Y ORDERABLES Performing Organization Address [facility] [place] [address] * Specimen to Pathology (surgical or derm) (08/15/2016 10:33 AM EDT) AP Specimen 08/15/2016 10:3 3 AM EDT 08/15/2016 10:33 AM EDT Narrative [facility] - 08/15/2016 10:33 AM EDT Specimen requisition ordered. ??Separate Pathology report to follow Elizabeth Barkley MD PATHOLOGY/CYTOLOG Y ORDERABLES Performing Organization Address [facility] [place] [address] * COLONOSCOPY (08/15/2016 9:38 AM EDT) COLONOSCOPY [facility] Endoscopy ___ Procedure Date: 08/15/2016 9:38 AM ? Patient Name: Samira Snider ? Date of : 1975 ? Age: 41 ? Order #: [id number] ? Instrument Name: [id number] ? ___ Procedure: ? Colonoscopy Indications: ? Hematochezia, Diarrhea (intermittent) Providers: ? Elizabeth Barkley MD, Seble Forbes, ? RN, Bianca Rubi, Highballer Referring : ?CEM Bell Medicines: ? An [...] preparation was evaluated using ? the BBPS ([place] Bowel Preparation ? Scale) with scores of: [...] [facility] UPPER GI ENDOSCOPY [facility] Endoscopy Procedure Date: 08/15/2016 9:37 AM ? Patient Name: Samira Snider ? [facility]: [id number] ? Date of : 1975 ? Age: 41 ? Order #: [id number] ? Instrument Name: [id number] ? Procedure: ? Upper GI endoscopy Indications: ? Epigastric abdominal pain, ? post-prandial abdominal bloating and ? gas Providers: ? Elizabeth Barkley MD, Seble Forbes, ? RN, Bianca Rubi, Highballer Referring MD: ?CEM Bell Medicines: ? Midazolam [...] GENERAL SURGICAL ORD ERABLES Performing Organization Address City/State/[facility] Co de Phone Number [employer] documented in [...] sedation) documented in this encounter Care Teams Dental Ceramist Helper Relationship Specialty Start Date End Date José Luis Cornejo PA [address] [place] [address] PCP - General Family Medicine 05/29/16 12/30/19 documented as of this encounter
[2024-05-13 15:10] LABS: HCT 40.2 % (36.0-46.0); HGB 12.8 g/dL (11.2-15.7); MCH 28.3 pg (27.0-33.0); MCHC 31.8 % (32.0-36.0); MCV 89 fL (80-95); MPV 10.6 fL (8.0-11.0); Platelet Count 244 10^3/uL (130-400); RBC 4.52 10^6/uL (3.93-5.22); RDW 13.1 % (11.7-14.6); WBC 6.25 10^3/uL (4.4-10.8)
[2024-05-13 15:44] LABS: Anion Gap 7.6 mmol/L (3-11); BUN 12 mg/dL (7-18); CO2 30.4 mmol/L (21.0-32.0); CREATININE 0.9 mg/dL (0.55-1.02); Calcium 9.9 mg/dL (8.5-10.1); Chloride 105 mmol/L (98-107); Estimated GFR 77.88 (mL/min/1.73m2); Ferritin 33 ng/mL (8-252); Glucose 92 mg/dL (74-106); Potassium 3.6 mmol/L (3.5-5.1); Sodium 143 mmol/L (136-145); TSH (W/Ref FT4) 1.14 uIU/mL (0.36-3.74)
[2024-05-13 16:07] LABS: Iron 104 ug/dL (50-170)
== END 2024-05-13 10:19 | disposition home or self-care (01) ==
LOC: NCHCN 10:18
PROVIDERS: PCP Family Medicine; Visit Provider Physician Assistant Medical
DX: E03.9 Hypothyroidism, unspecified (principal); D64.9 Anemia, unspecified; R11.0 Nausea
CPT/HCPCS: 80048; 85027; 82728; 83540; 84443

== ENCOUNTER → 2025-04-02 06:06 | Outpatient (CLI) | payer BC, SELFPAY ==
--- NOTE | 2025-04-02 | DI.RAD_ITS ---
Exam(s) XR SHOULDER RT COMPLETE 2+V EXAM: XR SHOULDER RT COMPLETE 2+V CLINICAL HISTORY: PAIN JOINT SHOULDER RT, M25.511, EARLY CAPSULITIS, SHOULDER STIFFNESS. TECHNIQUE: 2D digital imaging was performed. COMPARISON: CR XR shoulder LT complete 2+V from 11/19/2018 FINDINGS: Four views No evidence of fracture or dislocation or abnormal soft tissue calcifications. The subacromial space is not diminished. There are no obvious degenerative changes in the glenohumeral joint. Minimal degenerative changes in the AC joint. Coracoid process appears intact. Bone density normal. There are no osseous lesions. IMPRESSION: No significant radiographic findings in the right shoulder. DATA REPOSITORY: RADIATION DOSE DELIVERED:
== END ==
LOC: DI 06:06
PROVIDERS: PCP Family Medicine; Visit Provider Family Medicine
DX: M25.511 Pain in right shoulder (principal)
CPT/HCPCS: 73030

== ENCOUNTER 2025-05-05 16:53 | Outpatient (REF) | payer BC, SELFPAY ==
[2025-05-05 18:35] LABS: HCT 35.7 % (36.0-46.0); HGB 11.3 g/dL (11.2-15.7); MCH 28.3 pg (27.0-33.0); MCHC 31.7 % (32.0-36.0); MCV 89 fL (80-95); MPV 10.3 fL (8.0-11.0); Platelet Count 265 10^3/uL (130-400); RBC 4.00 10^6/uL (3.93-5.22); RDW 13.2 % (11.7-14.6); RDW-SD 44.1 fL; WBC 4.75 10^3/uL (4.4-10.8)
[2025-05-05 18:54] LABS: TSH 1.25 uIU/mL (0.55-4.78)
[2025-05-05 18:55] LABS: ALT 22 U/L (10-49); AST 26 U/L (<34); Albumin 4.1 g/dL (3.2-5.0); Alkaline Phosphatase 57 U/L (46-116); Anion Gap 8.8 mmol/L (3-11); BUN 16 mg/dL (9-23); Bilirubin, Total 0.3 mg/dL (0.2-1.2); CO2 28.2 mmol/L (20.0-31.0); Calcium 9.2 mg/dL (8.3-10.6); Chloride 107 mmol/L (98-107); Cholesterol 174 mg/dL (<200); Glucose 95 mg/dL (74-106); HDL Cholesterol 42 mg/dL (>or=50); Potassium 3.9 mmol/L (3.5-5.1); Sodium 144 mmol/L (136-145); Total Protein 6.8 g/dL (5.7-8.2)
== END 2025-05-05 16:54 | disposition home or self-care (01) ==
LOC: NCHCN 16:53
PROVIDERS: PCP Family Medicine; Visit Provider Family Medicine
DX: Z00.00 Encounter for general adult medical examination without abnormal findings (principal)
CPT/HCPCS: 80053; 80061; 85027; 84439; 84443